=== PATIENT | female | born 1970 ===

== ENCOUNTER 2020-05-13 11:16 | Outpatient (REF) | payer MEDICAID, SELFPAY | END 2020-05-13 11:17 | disposition home or self-care (01) | LOC: HO.LAB 11:16 | PROVIDERS: Visit Provider Internal Medicine | DX: Z20.828 Contact with and (suspected) exposure to other viral communicable diseases (principal) | CPT/HCPCS: C9803; U0003 ==

== ENCOUNTER 2020-06-21 11:17 | Outpatient (REF) | payer MEDICAID, SELFPAY | END 2020-06-21 11:18 | disposition home or self-care (01) | LOC: HO.LAB 11:17 | PROVIDERS: Visit Provider Internal Medicine | DX: Z20.822 Contact with and (suspected) exposure to COVID-19 (principal) | CPT/HCPCS: 36415; C9803; U0003 ==

== ENCOUNTER 2020-06-28 10:16 | Outpatient (REF) | payer MEDICAID, SELFPAY | END 2020-06-28 10:17 | disposition home or self-care (01) | LOC: HO.LAB 10:16 | PROVIDERS: Visit Provider Internal Medicine | DX: Z20.822 Contact with and (suspected) exposure to COVID-19 (principal) | CPT/HCPCS: 36415; C9803; U0003 ==

== ENCOUNTER 2020-09-24 11:27 | Outpatient (REF) | payer MEDICAID, SELFPAY ==
--- NOTE | ~2020-09-24 | XR_ITS ---
EXAMINATION: XR SOFT TISSUE NECK CLINICAL INDICATION: Trauma. COMPARISON: None TECHNIQUE: 2 views of the soft tissue neck were obtained. FINDINGS: Soft tissue films of the neck demonstrate a normal larynx, pharynx and upper trachea. No soft tissue swelling or opaque foreign body is demonstrated. XR/XR soft tissue neck IMPRESSION: Unremarkable cervical soft tissues.
--- NOTE | ~2020-09-24 | XR_ITS ---
EXAMINATION: XR CERVICAL SPINE CLINICAL INFORMATION: Neck pain. COMPARISON: Cervical spine CT dated 06/10/2018. TECHNIQUE: 3 views of the cervical spine were obtained. FINDINGS: The cervical lordosis is maintained. Mild grade 1 anterolisthesis of C4 on C5, unchanged. No acute fracture or subluxation. No loss of vertebral body height. Loss of intervertebral disc height with anterior endplate osteophytes at C4-C5 and C5-C6. Mild multilevel bilateral facet arthropathy. Normal atlantoaxial alignment. Unremarkable prevertebral soft tissues. XR/XR cervical spine 3V IMPRESSION: Mild grade 1 anterolisthesis of C4 on C5, unchanged. Degenerative disc disease at C4-C5 and C5-C6 with mild multilevel bilateral facet arthropathy, unchanged.
== END 2020-09-24 11:28 | disposition home or self-care (01) ==
LOC: HO.XRAY 11:27
PROVIDERS: PCP Registered Nurse; Visit Provider Registered Nurse
DX: M54.2 Cervicalgia (principal); M54.9 Dorsalgia, unspecified; W18.00XA Striking against unspecified object with subsequent fall, initial encounter
CPT/HCPCS: 70360; 72040

== ENCOUNTER 2020-10-01 09:49 | Outpatient (REF) | payer MEDICAID, SELFPAY ==
[2020-10-03 16:42] LABS: HPV mRNA E6/E7 rflx Not Detected (Not Detected)
== END 2020-10-01 09:50 | disposition home or self-care (01) ==
LOC: HO.LAB 09:49
PROVIDERS: Visit Provider Obstetrics & Gynecology
DX: Z01.419 Encounter for gynecological examination (general) (routine) without abnormal findings (principal)
CPT/HCPCS: 87624; 88142

== ENCOUNTER 2021-04-01 10:39 | Outpatient (REF) | payer MEDICAID, SELFPAY | END 2021-04-01 10:40 | disposition home or self-care (01) | LOC: HO.LAB 10:39 | PROVIDERS: Visit Provider Obstetrics & Gynecology | DX: D06.9 Carcinoma in situ of cervix, unspecified (principal) | CPT/HCPCS: 57456; 88305 ==

== ENCOUNTER → 2021-04-15 11:54 | Outpatient (BNVA) | payer MEDICAID, SELFPAY | PROVIDERS: Visit Provider Obstetrics & Gynecology ==

== ENCOUNTER → 2021-04-16 15:18 | Outpatient (BNVA) | payer MEDICAID, SELFPAY | PROVIDERS: Visit Provider Obstetrics & Gynecology ==

== ENCOUNTER 2021-10-16 13:52 | Outpatient (REF) | payer MEDICAID, SELFPAY ==
[2021-10-21 12:06] LABS: HPV mRNA E6/E7 rflx Not Detected (Not Detected)
== END 2021-10-16 13:53 | disposition home or self-care (01) ==
LOC: HO.LAB 13:52
PROVIDERS: Visit Provider Obstetrics & Gynecology
DX: Z01.419 Encounter for gynecological examination (general) (routine) without abnormal findings (principal)
CPT/HCPCS: 87624; 88142

== ENCOUNTER 2021-10-24 12:26 | Outpatient (REF) | payer MEDICAID, SELFPAY ==
--- NOTE | ~2021-10-24 | MM_ITS ---
EXAMINATION: MM SCREENING DIGITAL BREAST TOMOSYNTHESIS, BILATERAL CLINICAL INFORMATION: Screening. Asymptomatic. The lifetime risk of breast cancer based on the Tyrer-Cuzick Model is 6%. COMPARISON: Outside mammography: 11/10/2014 ([facility]) TECHNIQUE: Digital breast tomosynthesis is performed in both the craniocaudal and mediolateral oblique views along with computer-aided detection (CAD). Synthesized 2D images are generated from the tomosynthesis. FINDINGS: There are scattered areas of fibroglandular density (ACR BI-RADS breast composition Category b). Parenchymal pattern is similar to prior outside study. There are no significant masses, abnormal calcifications, or other abnormalities. Breast tissue composition borders on heterogeneously dense. The axilla and skin contours are unremarkable. There are no significant changes from prior outside exam. MM/MM tomosynthesis screening BI IMPRESSION: No mammographic evidence of malignancy. ASSESSMENT: BI-RADS 1: Negative RECOMMENDATION: Routine annual mammography screening. This patient's information was entered into a reminder system with a target due date for their next mammogram.
== END 2021-10-24 12:27 | disposition home or self-care (01) ==
LOC: HO.MAMMO 12:26
PROVIDERS: Visit Provider Obstetrics & Gynecology
DX: Z12.31 Encounter for screening mammogram for malignant neoplasm of breast (principal)
CPT/HCPCS: 77063; 77067

== ENCOUNTER 2021-12-02 14:49 | Emergency (ER) | payer MEDICAID, SELFPAY | END 2021-12-02 16:58 | disposition left against medical advice (07) | PROVIDERS: Emergency Provider Emergency Medicine; PCP Nurse Practitioner Family | DX: R42 Dizziness and giddiness (principal) ==

== ENCOUNTER → 2022-02-17 09:01 | Outpatient (BNVA) | payer MEDICAID, SELFPAY | PROVIDERS: PCP Nurse Practitioner Family; Visit Provider Nurse Practitioner Family | DX: Z01.818 Encounter for other preprocedural examination (principal); Z86.19 Personal history of other infectious and parasitic diseases | CPT/HCPCS: 99202; 99212 ==

== ENCOUNTER 2022-06-12 14:30 | Outpatient (REF) | payer MEDICAID, SELFPAY ==
--- NOTE | ~2022-06-12 | CT_ITS ---
EXAMINATION: CT CHEST SCREENING CLINICAL INFORMATION: Former smoker. COMPARISON: None. TECHNIQUE: Multidetector volumetric CT imaging of the chest is performed without contrast using low dose technique. Additional 2D coronal and sagittal reformatted images and axial 3D maximum intensity projection (MIP) images are generated on the CT workstation. This CT examination was performed using dose optimization techniques as appropriate, variously including the following: *Automated exposure control *Adjustment of mA and/or kV according to patient size (this includes techniques or standardized protocols for targeted exams where dose is matched to indication/reason for exam; i.e. extremities or head) *Use of iterative reconstruction technique DLP: 42 mGy-cm FINDINGS: LUNGS: The lungs are well expanded with small bilateral apical cyst. No pulmonary nodule, mass or consolidation seen. MEDIASTINUM: The thyroid lobes are symmetrical and normal. The central trachea and bronchi are widely patent. The heart size and pulmonary vascularity is normal. There is no pericardial effusion. No abnormal-size mediastinal or hilar lymph nodes seen. CORONARY ARTERY CALCIFICATION: None visualized on this study. PLEURA: There is no pleural effusion. No pleural mass or thickening. AXILLA: Small shotty lymph nodes seen in bilateral axilla. UPPER ABDOMEN: Visualized liver, spleen, pancreas and bilateral adrenal glands appear normal. OSSEOUS STRUCTURES: No aggressive lytic or sclerotic process seen. There is mild ventral spondylosis throughout dorsal spine. CT/CT lung screening IMPRESSION: Unremarkable CT chest exam. ASSESSMENT: Lung-RADS category 1: Negative RECOMMENDATION: Low-dose annual CT chest.
== END 2022-06-12 14:31 | disposition home or self-care (01) ==
LOC: HO.CT 14:30
PROVIDERS: PCP Family Medicine; Visit Provider Physician Assistant Medical
DX: Z12.2 Encounter for screening for malignant neoplasm of respiratory organs (principal); Z87.891 Personal history of nicotine dependence
CPT/HCPCS: 71271; G0296

== ENCOUNTER 2022-08-21 09:33 | Day surgery (SDC) | payer MEDICAID, SELFPAY ==
[2022-07-15 11:58] VITALS: BMI 24.5
[2022-07-15 12:06] VITALS: BMI 24.5
--- NOTE | 2022-08-20 13:12 | P.CONAN_ITS ---
Documented by User: Natalia Daley NP 08/20/22 13:13 HPI - Anesthesia Eval Consult details Narrative: 52yo F for Colonoscopy [facility] Active Problems Active Problems: All Active Problems (Updated 06/12/22 @ 14:32 by Asmita Christina PA-C) CLAY III (cervical intraepithelial neoplasia grade III) with severe dysplasia (Acute) Nicotine dependence, cigarettes, uncomplicated (Acute) Past Medical History Medical History (Updated 06/12/22 @ 14:32 by Asmita Christina PA-C) CLAY III (cervical intraepithelial neoplasia grade III) with severe dysplasia Family history of colon cancer Gastroesophageal reflux Hepatitis C without hepatic coma Hx of migraines Hypothyroidism Nicotine dependence, cigarettes, uncomplicated Paranoid schizophrenia Vertigo Family History Family History (Updated 05/29/22 @ 10:22 by Asmita Christina PA-C) Brother Colon cancer, Onset Age: 61 Father Colon cancer Sister Colon cancer, Onset Age: 54 Surgical History Surgical History (Updated 06/12/22 @ 14:25 by Asmita Christina PA-C) H/O cervical polypectomy H/O elbow surgery Social History Social History (Updated 06/12/22 @ 14:32 by Asmita Christina PA-C) Patient Tobacco Use Status: Former Tobacco user Quit Date: 2021 Tobacco use type: Cigarette Years Smoked: (onset 14yo, 1/2-3/4ppd x 38yrs, 22pyh, quit 2021, now using vape) Smoked in Last 30 Days: No Use of substances other than those prescribed or required for medical reasons: Yes Substance Use Frequency: Daily Are you DNR?: No Advance Directives: No Advance Directives Information Provided: Yes Meds Allergies Allergy/AdvReac Type Severity Reaction Status Date / Time No Known Allergies Allergy Verified 08/21/22 10:24 [No Known Allergies*] Home Medications Medication Instructions Recorded Confirmed Last Taken Type atorvastatin 10 mg tablet 10 mg PO DAILY 10/01/20 08/21/22 Unknown History clonazepam 0.5 mg tablet 0.25 mg PO BEDTIME 10/01/20 08/21/22 08/19/22 History levothyroxine 50 mcg capsule 50 mcg PO DAILY 10/01/20 08/21/22 Unknown History meclizine 25 mg tablet 25 mg PO DAILY 10/01/20 08/21/22 Unknown History nicotine (polacrilex) 4 mg gum 4 mg buccal Q2H 10/01/20 08/21/22 08/19/22 History quetiapine 50 mg tablet 50 mg PO DAILY 10/01/20 08/21/22 Unknown History ferrous sulfate 325 mg (65 mg 1 tab PO QPM 08/21/22 08/21/22 07/24/22 History iron) tablet (FeroSul) Exam Exam Date and Time: August 20, 2022 1312 Height,Weight and Vital Signs: Height 5 ft 6 in Weight 68.946 kg Assessment and Plan Assessment Anesthesia Assessment: Chart Reviewed Documented by User: Rajni Mejias MD 08/21/22 11:44 PMFSH Active Problems Active Problems: All Active Problems (Updated 06/12/22 @ 14:32 by Asmita Christina PA-C) CLAY III (cervical intraepithelial neoplasia grade III) with severe dysplasia (Acute) Nicotine dependence, cigarettes, uncomplicated (Acute) Hypothyroidism Anxiety Hyperlipidemia Smoker Past Medical History Medical History (Updated 06/12/22 @ 14:32 by Asmita Christina PA-C) CLAY III (cervical intraepithelial neoplasia grade III) with severe dysplasia Family history of colon cancer Gastroesophageal reflux Hepatitis C without hepatic coma Hx of migraines Hypothyroidism Nicotine dependence, cigarettes, uncomplicated Paranoid schizophrenia Vertigo Family History Family History (Updated 05/29/22 @ 10:22 by Asmita Christina PA-C) Brother Colon cancer, Onset Age: 61 Father Colon cancer Sister Colon cancer, Onset Age: 54 Surgical History Surgical History (Updated 06/12/22 @ 14:25 by Asmita Christina PA-C) H/O cervical polypectomy H/O elbow surgery Social History Social History (Updated 06/12/22 @ 14:32 by Asmita Christina PA-C) Patient Tobacco Use Status: Former Tobacco user Quit Date: 2021 Tobacco use type: Cigarette Years Smoked: (onset 14yo, 1/2-3/4ppd x 38yrs, 22pyh, quit 2021, now using vape) Smoked in Last 30 Days: No Use of substances other than those prescribed or required for medical reasons: Yes Substance Use Frequency: Daily Are you DNR?: No Advance Directives: No Advance Directives Information Provided: Yes Meds Allergies Allergy/AdvReac Type Severity Reaction Status Date / Time No Known Allergies Allergy Verified 08/21/22 10:24 [No Known Allergies*] Home Medications Medication Instructions Recorded Confirmed Last Taken Type atorvastatin 10 mg tablet 10 mg PO DAILY 10/01/20 08/21/22 Unknown History clonazepam 0.5 mg tablet 0.25 mg PO BEDTIME 10/01/20 08/21/22 08/19/22 History levothyroxine 50 mcg capsule 50 mcg PO DAILY 10/01/20 08/21/22 Unknown History meclizine 25 mg tablet 25 mg PO DAILY 10/01/20 08/21/22 Unknown History nicotine (polacrilex) 4 mg gum 4 mg buccal Q2H 10/01/20 08/21/22 08/19/22 History quetiapine 50 mg tablet 50 mg PO DAILY 10/01/20 08/21/22 Unknown History ferrous sulfate 325 mg (65 mg 1 tab PO QPM 08/21/22 08/21/22 07/24/22 History iron) tablet (FeroSul) Documented by User: Bill Ontiveros MD 08/21/22 12:09 [facility] Past Medical History Medical History (Updated 06/12/22 @ 14:32 by Asmita Christina PA-C) CLAY III (cervical intraepithelial neoplasia grade III) with severe dysplasia Family history of colon cancer Gastroesophageal reflux Hepatitis C without hepatic coma Hx of migraines Hypothyroidism Nicotine dependence, cigarettes, uncomplicated Paranoid schizophrenia Vertigo Family History Family History (Updated 05/29/22 @ 10:22 by Asmita Christina PA-C) Brother Colon cancer, Onset Age: 61 Father Colon cancer Sister Colon cancer, Onset Age: 54 Family history of problems with anesthesia: No Surgical History Surgical History (Updated 01/06/23 @ 14:25 by Asmita Christina PA-C) H/O cervical polypectomy H/O elbow surgery History of Problems with Anesthesia: No Social History Social History (Updated 06/12/22 @ 14:32 by Asmita Christina PA-C) Patient Tobacco Use Status: Former Tobacco user Quit Date: 2021 Tobacco use type: Cigarette Years Smoked: (onset 14yo, 1/2-3/4ppd x 38yrs, 22pyh, quit 2021, now using vape) Smoked in Last 30 Days: No Use of substances other than those prescribed or required for medical reasons: Yes Substance Use Frequency: Daily Are you DNR?: No Advance Directives: No Advance Directives Information Provided: Yes Meds Allergies Allergy/AdvReac Type Severity Reaction Status Date / Time No Known Allergies Allergy Verified 08/21/22 10:24 [No Known Allergies*] Home Medications Medication Instructions Recorded Confirmed Last Taken Type atorvastatin 10 mg tablet 10 mg PO DAILY 10/01/20 08/21/22 Unknown History clonazepam 0.5 mg tablet 0.25 mg PO BEDTIME 10/01/20 08/21/22 08/19/22 History levothyroxine 50 mcg capsule 50 mcg PO DAILY 10/01/20 08/21/22 Unknown History meclizine 25 mg tablet 25 mg PO DAILY 10/01/20 08/21/22 Unknown History nicotine (polacrilex) 4 mg gum 4 mg buccal Q2H 10/01/20 08/21/22 08/19/22 History quetiapine 50 mg tablet 50 mg PO DAILY 10/01/20 08/21/22 Unknown History ferrous sulfate 325 mg (65 mg 1 tab PO QPM 08/21/22 08/21/22 07/24/22 History iron) tablet (FeroSul) Exam Airway Mallampati Class: I TM Dist: >3cm Neck ROM: Full Partial: Lower Heart: ok Lungs: ok Assessment and Plan Assessment Anesthesia Assessment: Anesthesia Plan Discussed Final Anesthetic Review Family History of Problems with Anesthesia: No History of Problems with Anesthesia: No NPO: Yes ASA Class: III Final Preanesthetic Review: No Changes in Pt Med Stat, Meds/Allgs Chart Reviewed, Consent Obtained/Reviewed and Anes Risks/Benef Reviewed Patient Risk: Intermediate Procedure Risk: Low Anesthetic Plan Anesthetic Plan: MAC: and Agree w/ Assess. and Plan Disposition: Standard PACU
[2022-08-21 10:18] VITALS: BMI 24.2
[2022-08-21 10:29] VITALS: BP 124/75; PULSE 55; RESP 16; TEMP 36.2; O2SAT 98
[2022-08-21] MEDS: Sodium Phosphate,Mono-Dibasic 133 ML ENEMA PR ×2 (10:45→11:22)
[2022-08-21] MEDS: Lactated Ringers 1,000 ML 100 ML IVCONT (11:14)
--- NOTE | 2022-08-21 11:50 | MHC.SHP ---
Pre-Procedural Eval Section A Date of Service: 08/21/22 The patient is an INPATIENT: No The History & Physical has been completed within 30 days and I have reviewed it.: No Section B Chief Complaint: colon cancer screening Relevant Family History (Specify if Yes): Yes Relevant Social History: None Present Medications: see Short Stay Collaborative assessment Medical History: Significant History (CLAY III (cervical intraepithelial neoplasia grade III) with severe dysplasia Gastroesophageal reflux Hepatitis A Hepatitis B immune Hepatitis C without hepatic coma Hx of migraines Hypothyroidism Paranoid schizophrenia) History of Previous Operations: Relevant previous surgery/procedure and date(s) (H/O cervical polypectomy H/O elbow surgery) Allergies: Allergies Allergy/AdvReac Type Severity Reaction Status Date / Time No Known Allergies Allergy Verified 08/21/22 10:24 [No Known Allergies*] Review of Systems Sugical H&P ROS: Negative: Constitution, Cardiovascular, Respiratory and Gastrointestinal Exam Surgical H&P Exam: Normal: Heart, Normal: Lungs, Normal: Extremities and Normal: Abdomen Plan Diagnosis/Plan: Unchanged I have reviewed the history and physical and performed a pertinent physical examination on my patient. No changes have occurred unless specified. Time Spent With Patient Time: Total time managing care of this patient today ____ minutes.
--- NOTE | 2022-08-21 11:52 | PM.OP ---
Brief Operative Note Date of Service: 08/21/22 Pre-op diagnosis: colon cancer screening, family history of colon cancer Post-op diagnosis: other ( COLON POLYP, DIVERTICULOSIS, HEMORRHOIDS) Procedure: COLONOSCOPY TO CECUM WITH SNARE POLYPECTOMY Surgeon: Austyn Uribe MD Anesthesia: MAC Was an Plant Operations Manager used for this Procedure?: Yes Plant Operations Manager: Cate Martinez Estimated blood loss (mL): 0 Pathology: other (A: sigmoid polyp at 35) Condition: stable Disposition: PACU
--- NOTE | 2022-08-21 11:52 | W.PM.OPN ---
Operative Note Operative Note Date of Service: 08/21/22 Narrative: COLONOSCOPY TILL CECUM WITH SNARE POLYPECTOMY Indication:? Colon cancer screening, family hx of colon cancer Endoscopist:? Austyn Uribe MD Anesthesia Provider:?Dr Ontiveros Anesthesia type:?MAC Consent: Indications for the procedure and potential complications of bleeding, perforation, reaction to medications and missed diagnosis were discussed with the patient with the help of a [place] bunghole borer and informed consent was obtained. Instrument: Olympus PCF H 190 L variable stiffness pediatric colonoscope Monitoring: Vital signs and clinical assessment, intermittent blood pressure monitoring, continuous EKG monitoring, Pulse oximetry and Carbon Dioxide monitoring were done throughout the procedure. Please see anesthesia flowsheet. Colon withdrawl time was 19 minutes. Procedure: The patient was placed in the left lateral decubitis position and pre-procedure medications were administered. After a digital rectal examination of the ano-rectum, the video colonoscope was inserted into the rectum and advanced through the colon to the cecum. The colonoscope was slowly withdrawn in a retrograde panoramic fashion and the colon mucosa was carefully examined including a retroflexed view of the rectum. Findings and interventions are described below. Procedure Difficulty: Without difficulty Findings: Terminal Ileum: Not evaluated Cecum: Normal Ascending Colon: Normal Transverse Colon: Normal Descending Colon: Moderate diverticulosis Sigmoid Colon: A 12-15 mm sessile polyp at 35 cms - removed wih a hot snare. Moderate diverticulosis Rectum: Normal Ano-rectum: Moderate internal hemorrhoids Colon preparation: Good after some irrigation and poor in the left colon from 40 to 50 cms due to presence of solid stools. Impression and Post Procedure Diagnosis: Colonoscopy Findings: One medium sized polyp removed Moderate diverticulosis seen in the left colon Moderate hemorrhoids on retroflexed exam. Plan: Await pathology results Patient has an appointment on 09/04/22 in the [facility] with Sandra Linda FNP-BC. Repeat Colonoscopy interval based on path results - in 3 years if polyps are adenomatous and due to poor prep in an area in the left colon Above findings were reviewed with the patient and colon polyps and diverticulosis handouts were given in the discharge area
[2022-08-21 12:38] VITALS: BP 145/84; PULSE 56; RESP 16; TEMP 36.9; O2SAT 97
[2022-08-21 12:53] VITALS: BP 134/65; PULSE 83; RESP 20; TEMP 37; O2SAT 100
[2022-08-21 13:08] VITALS: BP 136/73; PULSE 78; RESP 20; TEMP 37; O2SAT 100
== END 2022-08-21 13:23 | disposition home or self-care (01) ==
PROVIDERS: PCP Family Medicine; Visit Provider Internal Medicine Gastroenterology
PROC: 0DJD8ZZ Inspection of Lower Intestinal Tract, Via Natural or Artificial Opening Endoscopic (ICD-10-PCS; CPT 45378; principal; 2022-08-21 11:20)
DX: Z12.11 Encounter for screening for malignant neoplasm of colon (principal); Z80.0 Family history of malignant neoplasm of digestive organs; D12.5 Benign neoplasm of sigmoid colon; K57.30 Diverticulosis of large intestine without perforation or abscess without bleeding; K64.8 Other hemorrhoids; K21.9 Gastro-esophageal reflux disease without esophagitis; B19.20 Unspecified viral hepatitis C without hepatic coma; E03.9 Hypothyroidism, unspecified; F20.0 Paranoid schizophrenia; R42 Dizziness and giddiness; Z79.899 Other long term (current) drug therapy; F17.299 Nicotine dependence, other tobacco product, with unspecified nicotine-induced disorders
CPT/HCPCS: 45385; 88305; J2250

== ENCOUNTER 2023-04-12 12:30 | Outpatient (REF) | payer MEDICAID, SELFPAY ==
--- NOTE | ~2023-04-12 | XR_ITS ---
EXAMINATION: XR LUMBAR SPINE XR KNEES, BILATERAL XR HIP, RIGHT HIP CLINICAL INFORMATION: Bilateral chronic knee pain, acute bilateral low back pain without sciatica. Worsening right hip pain. COMPARISON: None available. TECHNIQUE: 3 views of the lumbar spine. 2 views of the right hip. 3 views of the left knee. 4 views of the right knee. FINDINGS: LUMBAR SPINE: For the purposes of this report, the most superior tqd-vbk-gstqtzh lumbar type vertebral body will be referred to as L1. Progression of mild rightward curvature of the thoracolumbar spine. Facet arthritis in the lower lumbar spine. Lumbar vertebral body heights are preserved. Mild multilevel lumbar spondylosis. Mild loss of disc space height at L4-L5 with minimal grade 1 retrolisthesis of L4 on L5. RIGHT HIP: Mild degenerative changes with superior joint space narrowing right hip. Alignment preserved. RIGHT KNEE: Joint effusion present. Joint spaces are preserved. Tiny medial and posterior patellar osteophytes. LEFT KNEE: Joint effusion present. Joint spaces are preserved. Tiny medial and posterior patellar osteophytes. XR/XR knee LT 3V IMPRESSION: 1. Mild multilevel lumbar spondylosis most notable at L4-L5. 2. Mild degenerative changes in the right hip. 3. Mild degenerative changes in the bilateral knees. CT scan or MRI could be considered for further evaluation if there is clinical concern for fracture or other pathology as these studies are more sensitive for detection.
--- NOTE | ~2023-04-12 | XR_ITS ---
EXAMINATION: XR LUMBAR SPINE XR KNEES, BILATERAL XR HIP, RIGHT HIP CLINICAL INFORMATION: Bilateral chronic knee pain, acute bilateral low back pain without sciatica. Worsening right hip pain. COMPARISON: None available. TECHNIQUE: 3 views of the lumbar spine. 2 views of the right hip. 3 views of the left knee. 4 views of the right knee. FINDINGS: LUMBAR SPINE: For the purposes of this report, the most superior lys-xyj-jodxmvl lumbar type vertebral body will be referred to as L1. Progression of mild rightward curvature of the thoracolumbar spine. Facet arthritis in the lower lumbar spine. Lumbar vertebral body heights are preserved. Mild multilevel lumbar spondylosis. Mild loss of disc space height at L4-L5 with minimal grade 1 retrolisthesis of L4 on L5. RIGHT HIP: Mild degenerative changes with superior joint space narrowing right hip. Alignment preserved. RIGHT KNEE: Joint effusion present. Joint spaces are preserved. Tiny medial and posterior patellar osteophytes. LEFT KNEE: Joint effusion present. Joint spaces are preserved. Tiny medial and posterior patellar osteophytes. XR/XR knee RT 3V IMPRESSION: 1. Mild multilevel lumbar spondylosis most notable at L4-L5. 2. Mild degenerative changes in the right hip. 3. Mild degenerative changes in the bilateral knees. CT scan or MRI could be considered for further evaluation if there is clinical concern for fracture or other pathology as these studies are more sensitive for detection.
--- NOTE | ~2023-04-12 | XR_ITS ---
EXAMINATION: XR LUMBAR SPINE XR KNEES, BILATERAL XR HIP, RIGHT HIP CLINICAL INFORMATION: Bilateral chronic knee pain, acute bilateral low back pain without sciatica. Worsening right hip pain. COMPARISON: None available. TECHNIQUE: 3 views of the lumbar spine. 2 views of the right hip. 3 views of the left knee. 4 views of the right knee. FINDINGS: LUMBAR SPINE: For the purposes of this report, the most superior fia-aqt-wipajwm lumbar type vertebral body will be referred to as L1. Progression of mild rightward curvature of the thoracolumbar spine. Facet arthritis in the lower lumbar spine. Lumbar vertebral body heights are preserved. Mild multilevel lumbar spondylosis. Mild loss of disc space height at L4-L5 with minimal grade 1 retrolisthesis of L4 on L5. RIGHT HIP: Mild degenerative changes with superior joint space narrowing right hip. Alignment preserved. RIGHT KNEE: Joint effusion present. Joint spaces are preserved. Tiny medial and posterior patellar osteophytes. LEFT KNEE: Joint effusion present. Joint spaces are preserved. Tiny medial and posterior patellar osteophytes. XR/XR hip RT min 2V IMPRESSION: 1. Mild multilevel lumbar spondylosis most notable at L4-L5. 2. Mild degenerative changes in the right hip. 3. Mild degenerative changes in the bilateral knees. CT scan or MRI could be considered for further evaluation if there is clinical concern for fracture or other pathology as these studies are more sensitive for detection.
--- NOTE | ~2023-04-12 | XR_ITS ---
EXAMINATION: XR LUMBAR SPINE XR KNEES, BILATERAL XR HIP, RIGHT HIP CLINICAL INFORMATION: Bilateral chronic knee pain, acute bilateral low back pain without sciatica. Worsening right hip pain. COMPARISON: None available. TECHNIQUE: 3 views of the lumbar spine. 2 views of the right hip. 3 views of the left knee. 4 views of the right knee. FINDINGS: LUMBAR SPINE: For the purposes of this report, the most superior xuc-dyw-ldngcpy lumbar type vertebral body will be referred to as L1. Progression of mild rightward curvature of the thoracolumbar spine. Facet arthritis in the lower lumbar spine. Lumbar vertebral body heights are preserved. Mild multilevel lumbar spondylosis. Mild loss of disc space height at L4-L5 with minimal grade 1 retrolisthesis of L4 on L5. RIGHT HIP: Mild degenerative changes with superior joint space narrowing right hip. Alignment preserved. RIGHT KNEE: Joint effusion present. Joint spaces are preserved. Tiny medial and posterior patellar osteophytes. LEFT KNEE: Joint effusion present. Joint spaces are preserved. Tiny medial and posterior patellar osteophytes. XR/XR lumbar spine 2-3V IMPRESSION: 1. Mild multilevel lumbar spondylosis most notable at L4-L5. 2. Mild degenerative changes in the right hip. 3. Mild degenerative changes in the bilateral knees. CT scan or MRI could be considered for further evaluation if there is clinical concern for fracture or other pathology as these studies are more sensitive for detection.
== END 2023-04-12 12:31 | disposition home or self-care (01) ==
LOC: HO.HHCX 12:30
PROVIDERS: Visit Provider Family Medicine
DX: M25.561 Pain in right knee (principal); M25.562 Pain in left knee; G89.29 Other chronic pain; M54.50 Low back pain, unspecified; M25.551 Pain in right hip
CPT/HCPCS: 72100; 73502; 73562

== ENCOUNTER → 2023-05-07 13:45 | Outpatient (BNV) | payer MEDICAID, SELFPAY | PROVIDERS: PCP Family Medicine; Visit Provider Radiology Diagnostic Radiology | DX: Z12.31 Encounter for screening mammogram for malignant neoplasm of breast (principal) | CPT/HCPCS: 77063; 77067 ==

== ENCOUNTER 2023-05-07 14:01 | Outpatient (REF) | payer MEDICAID, SELFPAY ==
--- NOTE | ~2023-05-07 | MM_ITS ---
EXAMINATION: MM SCREENING DIGITAL BREAST TOMOSYNTHESIS, BILATERAL CLINICAL INFORMATION: Screening. Asymptomatic. COMPARISON: Mammography: This study is compared with prior exams dating back to 2015. TECHNIQUE: Digital breast tomosynthesis is performed in both the craniocaudal and mediolateral oblique views along with computer-aided detection (CAD). Synthesized 2D images are generated from the tomosynthesis. FINDINGS: The breasts are heterogeneously dense, which may obscure small masses (ACR BI-RADS breast composition Category c). There are no significant masses, abnormal calcifications, or other abnormalities. MM/MM tomosynthesis screening BI IMPRESSION: No mammographic evidence of malignancy. ASSESSMENT: BI-RADS BI-RADS 1 - Negative RECOMMENDATION: Routine annual mammography screening. 1 year F/U This examination should not preclude the clinical evaluation of a suspicious palpable abnormality. This patient's information was entered into a reminder system with a target due date for their next mammogram.
== END 2023-05-07 14:02 | disposition home or self-care (01) ==
LOC: HO.MAMMO 14:01
PROVIDERS: PCP Family Medicine; Visit Provider Family Medicine
DX: Z12.31 Encounter for screening mammogram for malignant neoplasm of breast (principal)
CPT/HCPCS: 77063; 77067

== ENCOUNTER 2023-12-23 11:05 | Outpatient (REF) | payer MEDICAID, SELFPAY ==
[2023-12-23 13:14] LABS: Hematocrit 42.6 % (37.0-47.0); Hemoglobin 13.7 g/dl (12.0-16.0); Mean Corpuscular HGB Conc 32.2 g/dl (31.0-35.0); Mean Corpuscular Hemoglobin 29.7 pg (27.0-33.0); Mean Corpuscular Volume 92.2 fL (80.0-98.0); Mean Platelet Volume 10.2 fL (9.4-12.3); Platelet Count 311 X10*3/uL (160-400); Red Blood Count 4.62 X10*6/uL (4.20-5.50); Red Cell Distribution Width 14.6 % (11.0-16.0); White Blood Count 9.3 X10*3/uL (4.8-10.8)
[2023-12-23 13:18] LABS: Estimated Average Glucose 114 mg/dL; Hemoglobin A1C 132.8076 umol/L; Hemoglobin A1c % 5.6 % (<6.0)
[2023-12-23 13:44] LABS: Hepatitis A Antibody IgG Nonreactive (Nonreactive); ~Hepatitis A Antibody IgG 0.63 S/CO (0.00-0.99)
[2023-12-23 13:47] LABS: HBS Num1 > 1000.00 mIU/mL (0-7.99); HBc Num1 5.05 S/CO (0.00-0.79); HBsAGNum1 0.34 S/CO (0.00-0.99); HIV AB/AG Nonreactive (Nonreactive); HIV Num 1 0.04 S/CO (0.00-0.99); Hepatitis B Surface Antigen Negative (Negative); ~Hepatitis B Surface Antibody REACTIVE (Nonreactive); ~Hepatitis C Antibody Reactive (Nonreactive)
[2023-12-23 13:50] LABS: Alanine Aminotransferase 14 U/L (0-31); Albumin Level 4.6 g/dL (3.5-5.0); Alkaline Phosphatase 81 U/L (39-117); Anion Gap 14 (12-20); Aspartate Amino Transferase 19 U/L (5-31); Bilirubin Direct 0.2 mg/dL (0.0-0.5); Bilirubin Total 0.5 mg/dL (0.0-1.0); Blood Urea Nitrogen 8 mg/dL (9-16); Calcium 10.6 mg/dL (8.4-10.2); Carbon Dioxide 27 mmol/L (22-29); Chloride 102 mmol/L (96-108); Cholesterol 176 mg/dL (<200); Estimated Glomerular Filt Rate > 60; Glucose Random 88 mg/dL (60-115); HDL Cholesterol 55 mg/dL (>40); LDL Cholesterol Calculated 101 mg/dL (<100); Potassium 4.3 mmol/L (3.3-5.1); Sodium 139 mmol/L (135-145); Total Protein 8.2 g/dL (6.5-8.0); Triglycerides 104 mg/dL (<150)
[2023-12-23 13:52] LABS: Free T4 (Free Thyroxine) 1.15 ng/dL (0.71-1.85); Thyroid Stimulating Hormone 1.08 uIU/mL (0.32-4.0)
[2023-12-23 15:41] LABS: CT PCR NOT DETECTED (Not Detect.); NG PCR NOT DETECTED (Not Detect.)
[2023-12-24 05:19] LABS: HBc Num2 4.84 S/CO; HBc Num3 5.11 S/CO; Hepatitis B Core Antibody Reactive (Nonreactive)
[2023-12-26 22:04] LABS: RPR Rapid Plasma Reagin NON-REACTIVE (NON-REACTIVE)
[2023-12-27 11:24] LABS: HCV Log PCR <1.18 NOT DETECTED Log IU/mL (NOT DETECTED); HepC Viral Load <15 NOT DETECTED IU/mL (NOT DETECTED)
== END 2023-12-23 11:06 | disposition home or self-care (01) ==
LOC: HO.HHCL 11:05
PROVIDERS: Visit Provider Family Medicine
DX: Z00.00 Encounter for general adult medical examination without abnormal findings (principal)
CPT/HCPCS: 36415; 80048; 80061; 80076; 82306; 83036; 84439; 84443; 85027; 86592; 86704; 86706; 86708; 86803; 87340; 87389; 87491; 87522; 87591

== ENCOUNTER 2024-01-12 09:39 | Outpatient (AMB) | payer MEDICAID, SELFPAY ==
--- NOTE | 2024-01-12 09:44 | A.OFFVIS_ITS ---
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 Pt states she has had knee pain for several years. Pt states when she walks she hears cracking in her knees. Pt states her pain is mostly at nighttime. Pt denies any previous injections or surgeries. She has tried Tylenol and ibuprofen which gave her only mild relief. She would like to hold off on surgery if at all possible. Allergies No Known Allergies [No Known Allergies*] Allergy (Verified 01/12/24 09:44) Medication List - Last Reconciled 01/12/24 by Beka Moy MD atorvastatin 10 mg PO DAILY clonazepam 0.25 mg PO BEDTIME ferrous sulfate (FeroSul) 1 tab PO QPM levothyroxine 50 mcg PO DAILY meclizine 25 mg PO DAILY nicotine (polacrilex) 4 mg buccal Q2H quetiapine 50 mg PO DAILY PFSH Medical History (Updated 01/12/24 @ 10:37 by Beka Moy MD) Personal history of nicotine dependence Family history of colon cancer CLAY III (cervical intraepithelial neoplasia grade III) with severe dysplasia Hepatitis C without hepatic coma Hx of migraines Gastroesophageal reflux Paranoid schizophrenia Vertigo Hypothyroidism Surgical History (Updated 09/03/22 @ 11:54 by Santos Galicia) Hx of colonoscopy H/O elbow surgery H/O cervical polypectomy Family History (Updated 05/29/22 @ 10:22 by Asmita Christina PA-C) Brother Colon cancer, Onset Age: 61 Father Colon cancer Sister Colon cancer, Onset Age: 54 Social History (Updated 06/12/22 @ 14:32 by Asmita Christina PA-C) Patient Tobacco Use Status: Former Tobacco user Tobacco use type: Cigarette Years Smoked: (onset 14yo, 1/2-3/4ppd x 38yrs, 22pyh, quit 2021, now using vape) Female Reproductive History Menstrual Age of Menarche: 13 Physical Exam Const Other: Well-nourished well-developed very friendly female awake alert and oriented x3 in no acute distress Extrem Other: Bilateral lower extremity examination shows good capillary refill, no skin lesions noted, normal sensation light touch Bilateral knee examination shows minimal effusions, palpable crepitus with range of motion, pain with range of motion, no instability Office Procedures Joint Injection/Aspiration Joint Injection/Aspiration Primary Site: left knee Prep: site was prepped using aseptic technique Injected: 40 mg of, DepoMedrol and 1% plain lidocaine Procedure: The patient tolerated the procedure well Coding 05428 - Large joint Procedure code (CPT) selection complete Joint Injection/Aspiration Joint Injection/Aspiration Primary Site: right knee Prep: site was prepped using aseptic technique Injected: 40 mg of, DepoMedrol and 1% plain lidocaine Procedure: The patient tolerated the procedure well Coding 81910 - Large joint Procedure code (CPT) selection complete Results Reviewed Results Reviewed: X-rays of the patient's bilateral knees taken today show mild joint space narrowing, no acute bony abnormalities Assessment & Plan Assessment & Plan (1) Left knee pain: Code(s): M25.562 - Pain in left knee Category: Medical (2) Right knee pain: Code(s): M25.561 - Pain in right knee Category: Medical Plan Ms. Moreno Dickinson presents with bilateral knee pains due to early degenerative joint disease. I had a lengthy discussion with the patient regarding the treatment options. The risks and benefits of bilateral knee cortisone injections were discussed at length with the patient. The patient wished to proceed with the injections. She tolerated the injections well. She will continue with her home exercise program. She will follow up with me on an as- needed basis should her symptoms not plateau at an unacceptable level over the next few months. Feel free to call me at any time should questions regarding her orthopedic management arise. Thank you very much for asking me to see this very friendly patient. I spent 22 minutes in reviewing the patient's records and imaging studies, seeing the patient and documenting in the medical record. Orders: Orders AMB Joint Injection/Aspiration Today M25.562 - Pain in left knee AMB Joint Injection/Aspiration Today M25.561 - Pain in right knee Coding Level of Care Code New Pt Level 3 (68574) Diagnoses Left knee pain M25.562 Right knee pain M25.561 CPT Codes Coding - 89492 Large joint: 35421 - Large joint ([id number]) Coding - 45452 Large joint: 87741 - Large joint ([id number])
== END 2024-01-12 10:13 | disposition home or self-care (01) ==
PROVIDERS: PCP Family Medicine; Referring Provider Family Medicine; Visit Provider Orthopaedic Surgery
DX: M25.562 Pain in left knee (principal); M25.561 Pain in right knee
CPT/HCPCS: 20610; 99203

== ENCOUNTER → 2024-01-12 09:39 | Outpatient (BNVA) | payer MEDICAID, SELFPAY | PROVIDERS: PCP Family Medicine; Visit Provider Orthopaedic Surgery | DX: M17.0 Bilateral primary osteoarthritis of knee (principal) | CPT/HCPCS: 20610; 99202; J1010 ==

== ENCOUNTER 2024-01-20 15:06 | Outpatient (REF) | payer MEDICAID, SELFPAY ==
--- NOTE | ~2024-01-20 | CT_ITS ---
EXAMINATION: CT LOW-DOSE SCREENING CHEST WITHOUT CONTRAST CLINICAL INFORMATION: Personal history of nicotine dependence. Former smoker. The patient has a 37 pack-year history of smoking, having quit 2 years ago. COMPARISON: CT chest June 12, 2022. TECHNIQUE: Multidetector volumetric CT imaging of the chest is performed on a Siemens SOMATOM Definition scanner without contrast using low dose technique. Additional 2D coronal and sagittal reformatted images and axial 3D maximum intensity projection (MIP) images are generated on the CT workstation. This CT examination was performed using dose optimization techniques as appropriate, variously including the following: *Automated exposure control. *Adjustment of mA and/or kV according to patient size (this includes techniques or standardized protocols for targeted exams where dose is matched to indication/reason for exam; i.e. extremities or head). *Use of iterative reconstruction technique. TOTAL EXAM DLP: 43 mGy-cm. CTDIvol: 1.34 mGy. FINDINGS: PULMONARY NODULES: No suspicious pulmonary nodules. LUNGS: Lungs bilaterally symmetrically expanded. There are vwtr-vb-lwgbaxia emphysematous changes seen along with a mild saber-sheath trachea. Mild diffuse bronchial thickening without bronchiectasis. No effusion or pneumothorax. Central airways patent. MEDIASTINUM: No mediastinal, hilar or axillary adenopathy or free fluid collection. CORONARY ARTERY CALCIFICATION: None visualized on this study. THYROID GLAND: Unremarkable to the extent seen. CARDIOVASCULAR STRUCTURES: Aortic and heart size normal. No pericardial effusion. CHEST WALL/AXILLA: Unremarkable. UPPER ABDOMEN: Included portions of the solid organs in the upper abdomen unremarkable on noncontrast imaging. OSSEOUS STRUCTURES: No suspicious focal findings. CT/CT lung screening IMPRESSION: No suspicious pulmonary nodules are seen. ASSESSMENT: 1. Lung-RADS Category 1: Negative. There are no nodules or there are definitely benign nodules. N/A. 2. Lung-RADS Category S: Negative. There are no clinically significant or potentially clinically significant findings not related to the lungs requiring urgent additional evaluation. RECOMMENDATION: Continued routine annual low-dose CT lung screening in 1 year is recommended. An order for CT CHEST LOW DOSE CANCER SCREENING ([id number]) can be placed. Electronically signed by: Simeon Sadler MD 02/22/2024 11:09 PM EDT
== END 2024-01-20 15:07 | disposition home or self-care (01) ==
LOC: HO.CT 15:06
PROVIDERS: Visit Provider Physician Assistant Medical
DX: Z12.2 Encounter for screening for malignant neoplasm of respiratory organs (principal); Z87.891 Personal history of nicotine dependence
CPT/HCPCS: 71271

== ENCOUNTER 2024-01-24 13:20 | Outpatient (REF) | payer MEDICAID, SELFPAY ==
[2024-01-26 17:27] LABS: HPV mRNA E6/E7 Not Detected (Not Detected)
== END 2024-01-24 13:21 | disposition home or self-care (01) ==
LOC: HO.LNP 13:20
PROVIDERS: PCP Family Medicine; Visit Provider Obstetrics & Gynecology
DX: Z01.419 Encounter for gynecological examination (general) (routine) without abnormal findings (principal)
CPT/HCPCS: 87624; 88175; 99396

== ENCOUNTER 2024-01-24 13:20 | Outpatient (AMB) | payer MEDICAID, SELFPAY ==
--- NOTE | 2024-01-24 13:26 | A.OFFVIS_ITS ---
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 No complaints. Last Pap/HPV was negative in 10/26 Last Mammogram was BI-RADS 1 in 05/29 Last Colonoscopy was done in 08/27, the recommendation was to repeat in 3 years [facility] Medical History (Updated 01/24/24 @ 14:04 by Cornelius Wall MD) Personal history of nicotine dependence Family history of colon cancer CLAY III (cervical intraepithelial neoplasia grade III) with severe dysplasia Hepatitis C without hepatic coma Hx of migraines Gastroesophageal reflux Paranoid schizophrenia Vertigo Hypothyroidism Surgical History Hx of tubal ligation Hx of colonoscopy H/O elbow surgery H/O cervical polypectomy Family History Brother Colon cancer, Onset Age: 61 Father Colon cancer Sister Colon cancer, Onset Age: 54 Social History Household Members: None Housing: Apartment Alcohol intake: current Alcohol intake frequency: holidays/special occasions only Patient Tobacco Use Status: Former Tobacco user Tobacco use type: Cigarette Years Smoked: (onset 14yo, 1/2-3/4ppd x 38yrs, 22pyh, quit 2021, now using vape) Current occupational status: unemployed Sexually active: No Sexual orientation: Straight/Heterosexual Gender identity: Female Female Reproductive History Menstrual Age of Menarche: 13 control method: permanent sterilization Date of last pap smear: 10/17/21 Date of Mammogram: 05/07/23 Review of Systems Const All systems reviewed & are unremarkable except as noted in HPI and below Card Reports as per HPI Resp Reports as per HPI GI Reports as per HPI and Reports no additional complaints Reports as per HPI Physical Exam Vital Signs: Last Vital Signs BP 122/82 08/19/24 13:45 BMI result Body Mass Index 26.3 Const General: cooperative, healthy appearing and comfortable Chest Chest palpation & inspection: normal inspection of the chest and normal palpation of entire chest wall Breast/axilla inspection: normal inspection of the breasts and normal inspection of the axillae Breast/axilla palpation: normal palpation of the breasts, normal palpation of the axillae and no axillary lymphadenopathy Resp Effort & Inspection: normal respiratory effort Auscultation: clear to auscultation bilaterally Percussion: percussion normal Cardio Palpation: normal PMI Rate: regular rate Rhythm: regular rhythm Heart sounds: no murmurs and no rubs Peripheral pulses: Peripheral pulses 2+ throughout GI Inspection: Yes normal to inspection Palpation (GI): Soft to palpation, nontender, no guarding, not rigid and No hepatosplenomegaly present Percussion: Yes normal to percussion Auscultation: normal bowel sounds Rectal Exam - Female: deferred General: Yes bladder normal to palpation External Female Exam: No lesion Speculum Exam - Vagina: normal appearance of the vagina, normal palpation, normal vaginal discharge and not erythematous Speculum Exam - Cervix: normal appearance of the cervix and normal palpation Bimanual exam- vagina & uterus: normal bimanual exam, normal palpation, uterine size normal, bladder normal to palpation, consistency normal and normal palpation Bimanual Exam- Adnexa, other: normal adnexae, no masses and no tenderness Assessment & Plan Assessment & Plan (1) Well woman exam: Comment: History of CLAY 3 status post LEEP in 2019 followed by 2 co testing negative in 2020 in 2021 Code(s): Z01.419 - Encounter for gynecological examination (general) (routine) without abnormal findings Category: Medical Plan: Co testing done. Counseled the patient about the recommended dietary allowance of 1200 mg of Calcium & 600 IU of vitamin D. Instructions given the patient to schedule her next screening Mammogram in 05/30. The patient was instructed to perform monthly self-breast exams and schedule annual exam in a year. All questions answered and the patient verbalized understanding. Coding Level of Care Code Est Pt Prev Care 40-64y(87853) Diagnoses Well woman exam Z01.419
[2024-01-24 13:45] VITALS: BP 122/82; BMI 26.3
== END 2024-01-24 14:33 | disposition home or self-care (01) ==
LOC: HO.HWS 13:21
PROVIDERS: PCP Family Medicine; Visit Provider Obstetrics & Gynecology
DX: Z01.419 Encounter for gynecological examination (general) (routine) without abnormal findings (principal)
CPT/HCPCS: 99396

== ENCOUNTER 2024-03-27 11:08 | Outpatient (AMB) | payer MEDICAID, SELFPAY ==
--- NOTE | 2024-03-27 11:09 | A.OFFVIS_ITS ---
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 Patient has what appears to be spider veins. Has bilateral leg pain, worse on right leg behind her knee; worse at night. She has no cramping or swelling. 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 She states for the last 5 years or so she has been having right lower extremity pain, worse at night with increased amount of spider veins. She states she does have some on the left lower extremity that have been appearing over the last year or so but not as bad as the right. She denies any swelling. She states she gets some increased pain when walking longer distances. She does smoke 3 cigarettes a day and is attempting to quit. She is not a diabetic. She has no history of a PE or DVT. She has no history of phlebitis. She does elevate her legs when sitting but has not tried compression stockings. [facility] Medical History Personal history of nicotine dependence Family history of colon cancer CLAY III (cervical intraepithelial neoplasia grade III) with severe dysplasia Hepatitis C without hepatic coma Hx of migraines Gastroesophageal reflux Paranoid schizophrenia Vertigo Hypothyroidism Surgical History Hx of tubal ligation Hx of colonoscopy H/O elbow surgery H/O cervical polypectomy Family History Brother Colon cancer, Onset Age: 61 Father Colon cancer Sister Colon cancer, Onset Age: 54 Social History Household Members: None Housing: Apartment Alcohol intake: current Alcohol intake frequency: holidays/special occasions only Patient Tobacco Use Status: Former Tobacco user Tobacco use type: Cigarette Years Smoked: (onset 14yo, 1/2-3/4ppd x 38yrs, 22pyh, quit 2021, now using vape) Current occupational status: unemployed Sexual orientation: Straight/Heterosexual Gender identity: Female Female Reproductive History Menstrual Age of Menarche: 13 Review of Systems Const Reports as per HPI and Denies weakness ENT Reports Normal hearing present and Denies dizziness Card Reports as per HPI, Denies chest pain, Denies chest pain at rest, Denies chest pain with activity, Denies dyspnea and Denies dyspnea on exertion Resp Reports as per HPI, Denies cough, Denies dyspnea and Denies dyspnea on exertion GI Reports as per HPI, Denies abdominal pain, Denies nausea and Denies vomiting Musc Denies numbness Skin/Breast Reports as per HPI, Denies erythema and Denies wounds Neuro Reports Normal hearing present, Denies dizziness, Denies numbness, Denies Sensory deficit (Neuro) and Denies weakness Psych Reports no additional complaints Endo Reports no additional complaints Physical Exam Const General: healthy appearing and no acute distress Orientation/consciousness: patient oriented x3 HEENT Head: Yes normal to inspection Ears: hearing grossly normal bilaterally Mouth: Normal oral and palatal mucosa present Resp Effort & Inspection: normal respiratory effort and able to speak in complete sentences Auscultation: clear to auscultation bilaterally Cardio Jugular venous distension: no JVD Rate: regular rate Rhythm: regular rhythm Heart sounds: S1 normal heart sound present and S2 normal heart sound present Bruits: no abdominal aortic bruits, no carotid bruits, no femoral bruits and no renal bruits Peripheral pulses: Peripheral pulses 2+ throughout GI Inspection: Yes normal to inspection Palpation (GI): No Abdominal aortic bruit present Skin Other: Spider veins noted in the anterior portion of her right lower leg below and around her knee. On her left lower extremity she has a smaller amount of spider veins behind her knee as well as surrounding her anterior knee. There are some starts of tortuous varicose vein on the anterior portion of her right lower extremity below her knee. There is no swelling noted today. Strong and palpable DP/PT pulses bilaterally. CEAP: C - 4 E - primary A - superficial P - reflux General skin exam: no rashes or lesions noted Wounds: no wounds Hair: normal Neuro General: patient oriented x3 Cranial nerves: Yes Normal hearing present Cognition (Neuro): normal cognition Gait exam (Neuro): Normal gait present Motor exam (neuro): 5/5 motor strength present throughout Sensory Exam: No Sensory deficit (Neuro) Extrem General: Yes normal to inspection, Yes full ROM, Yes capillary refill normal and Yes normal gait Assessment & Plan Assessment & Plan (1) Varicose veins of both lower extremities with inflammation: Code(s): I83.11 - Varicose veins of right lower extremity with inflammation; I83.12 - Varicose veins of left lower extremity with inflammation Category: Medical Plan: Janet is presenting today with concerns of varicose veins bilaterally, right leg worse than left. States the right leg has been going on for over 5 years and the left leg started approximately 1 year ago. She states that it is painful, especially with walking. She denies any swelling concerns. In short, the patient has evidence of venous insufficiency. I have discussed the pathophysiology with the patient. In addition I have provided informational material regarding venous disease to the patient. We have discussed conservative measures including compression, elevation, and exercise. I have also provided a handout regarding appropriate use of compression stockings and where to purchase good compression stockings as well. I have taken the liberty of ordering venous insufficiency testing with the patient. They will follow up with me after testing. The patient had an opportunity to ask questions regarding the treatment plan. All questions were answered. We discussed the physical exam findings. No major barriers to understanding were identified. The patient expressed understanding and agreement with the above treatment plan. The patient is aware they should contact our office by phone for worsening of the current condition or the appearance of new symptoms. Thank you for allowing me to participate in the vascular care of this patient. If you have any questions or concerns regarding the treatment for the above condition please do not hesitate to contact me. The office telephone contact is [phone]. This note is constructed using voice recognition software. While every effort has been made to ensure accuracy, rotoprinter errors may have been included. Thank you for allowing me to participate in the care of your patient. Yours sincerely, DAVID Osborn Coding Level of Care Code New Pt New Pt Level 4 (25529) Patient Type New Diagnoses Varicose veins of both lower extremities with inflammation I83.11; I83.12
== END 2024-03-27 11:30 | disposition home or self-care (01) ==
PROVIDERS: PCP Family Medicine; Visit Provider Physician Assistant Surgical
DX: I83.11 Varicose veins of right lower extremity with inflammation (principal); I83.12 Varicose veins of left lower extremity with inflammation
CPT/HCPCS: 99204

== ENCOUNTER → 2024-03-27 11:08 | Outpatient (BNVA) | payer MEDICAID, SELFPAY | PROVIDERS: PCP Family Medicine; Visit Provider Physician Assistant Surgical | DX: I83.11 Varicose veins of right lower extremity with inflammation (principal); I83.12 Varicose veins of left lower extremity with inflammation; I83.813 Varicose veins of bilateral lower extremities with pain | CPT/HCPCS: 99212 ==

== ENCOUNTER 2024-04-05 13:07 | Outpatient (REF) | payer MEDICAID, SELFPAY ==
--- NOTE | ~2024-04-05 | US_ITS ---
EXAMINATION: US LOWER EXTREMITY VENOUS (REFLUX EXAM), BILATERAL CLINICAL INDICATION: Findings the right lower extremity with inflammation COMPARISON: None. TECHNIQUE: Color flow triplex imaging and compression Doppler was performed to evaluate both the deep and the superficial systems bilaterally. To evaluate the superficial system, the examination was performed in the upright position. Color-flow Doppler ultrasound and compression ultrasound were utilized. In addition, maneuvers were utilized to demonstrate reflux. FINDINGS: 1. DEEP VENOUS ULTRASOUND OF THE RIGHT LOWER EXTREMITY: Common Femoral Vein: Compressible, normal respiratory variation and augmented flow. Femoral Vein: Compressible, normal color flow and augmentation. Popliteal Vein: Compressible, normal augmentation. Deep Reflux: There is no evidence of reflux in the deep system in either the common femoral vein, superficial femoral or the popliteal vein. There is no evidence of a Hutchison's cyst. 2. SUPERFICIAL ULTRASOUND WITH DOPPLER OF RIGHT LOWER EXTREMITY: GREAT SAPHENOUS VEIN: Saphenofemoral Junction: 0.4 cm; Reflux: 0 ms Proximal Thigh: 0.4 cm; Reflux: 0 ms Mid Thigh: 0.2 cm; Reflux: 1464 ms Above Knee: 0.2 cm; Reflux: 0 ms At Knee: 0.1 cm; Reflux: 0 ms Below Knee: 0.1 cm; Reflux: 0 ms Mid Calf: 0.1 cm; Reflux: 0 ms Ankle: 0.1 cm; Reflux: 0 ms DUPLICATED LATERAL GREAT SAPHENOUS VEIN: Saphenofemoral Junction: 0.3 cm; Reflux: 0 ms Mid Thigh: 0.2 cm; Reflux: 0 ms SMALL SAPHENOUS VEIN: Saphenopopliteal Junction: 0.1 cm; Reflux: 0 ms Proximal: 0.2 cm; Reflux: 0 ms Distal: 0.1 cm; Reflux: 0 ms PERFORATORS: Location: GSV mid thigh Size: 0.2; Reflux: 0 ms VARICOSITIES: Location: None imaged Size: NA; Reflux: 0 ms 3. DEEP VENOUS ULTRASOUND OF THE LEFT LOWER EXTREMITY: Common Femoral Vein: Compressible, normal respiratory variation and augmented flow. Femoral Vein: Compressible, normal color flow and augmentation. Popliteal Vein: Compressible, normal augmentation. Deep Reflux: There is no evidence of reflux in the deep system in either the common femoral vein, superficial femoral or the popliteal vein. There is no evidence of a Hutchison's cyst. 4. SUPERFICIAL ULTRASOUND WITH DOPPLER OF LEFT LOWER EXTREMITY: GREAT SAPHENOUS VEIN: Saphenofemoral Junction: 0.4 cm; Reflux: 0 ms Proximal Thigh: 0.3 cm; Reflux: 0 ms Mid Thigh: 0.3 cm; Reflux: 0 ms Above Knee: 0.3 cm; Reflux: 0 ms At Knee: 0.2 cm; Reflux: 0 ms Below Knee: 0.1 cm; Reflux: 0 ms Mid Calf: 0.1 cm; Reflux: 0 ms Ankle: 0.1 cm; Reflux: 0 ms DUPLICATED LATERAL GREAT SAPHENOUS VEIN: Saphenofemoral Junction: 0.2 cm; Reflux: 0 ms Mid Thigh: 0.2 cm; Reflux: 0 ms SMALL SAPHENOUS VEIN: Saphenopopliteal Junction: 0.1 cm; Reflux: 0 ms Proximal: 0.1 cm; Reflux: 0 ms Distal: 0.1 cm; Reflux: 0 ms VEIN OF GIACOMINI: Size: NA; Reflux: 0 ms PERFORATORS: Location: None imaged Size: NA; Reflux: 0 ms VARICOSITIES: Location: None Imaged Size: NA; Reflux: 0 ms US/US venous duplex LE BI IMPRESSION: 1. No evidence of deep venous thrombosis or reflux. 2. Focal incompetence of the right great saphenous vein at the level of the mid thigh with reflux measuring 1464 ms. 3. 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 4. No significant venous insufficiency bilaterally in the left lower extremity with competent left great saphenous vein, duplicated lateral great saphenous vein, and small saphenous vein. Electronically signed by: Bhumika Moon MD 04/05/2024 02:59 PM EDT
== END 2024-04-05 13:08 | disposition home or self-care (01) ==
LOC: HO.US 13:07
PROVIDERS: PCP Family Medicine; Visit Provider Physician Assistant Surgical
DX: I83.11 Varicose veins of right lower extremity with inflammation (principal); I83.12 Varicose veins of left lower extremity with inflammation
CPT/HCPCS: 93970

== ENCOUNTER 2024-04-13 10:03 | Outpatient (AMB) | payer MEDICAID, SELFPAY ==
[2024-04-13 10:11] VITALS: BMI 26.3
--- NOTE | 2024-04-13 10:11 | MHC.OFFVIS ---
Vital Signs 04/13/24 10:11 Height 5 ft 6 in Weight 163 lb BMI 26.3 Intake Visit Reasons: OV LENIN chronic knee pain Intake Note: Janet is a 54 year old female who presents with complaints of progressively worsening bilateral knee pains. She describes her pains as sharp and severe in nature. She has taken ibuprofen which gives her minimal relief. She has had cortisone injections in the past which gave her fairly good relief. She wishes to hold off on surgery for as long as possible. Posting Machine Operator Required: Yes Posting Machine Operator Language: Youth Liaison Officer Services: Posting Machine Operator Present Posting Machine Operator Name: KeithKRISTOPHER/SHIMA Allergies No Known Allergies [No Known Allergies*] Allergy (Verified 04/13/24 10:22) Medication List - Last Reconciled 04/13/24 by Beka Moy MD atorvastatin 10 mg PO DAILY clonazepam 0.25 mg PO BEDTIME ferrous sulfate (FeroSul) 1 tab PO QPM levothyroxine 50 mcg PO DAILY meclizine 25 mg PO DAILY nicotine (polacrilex) 4 mg buccal Q2H quetiapine 50 mg PO DAILY PFSH Medical History Personal history of nicotine dependence Family history of colon cancer CLAY III (cervical intraepithelial neoplasia grade III) with severe dysplasia Hepatitis C without hepatic coma Hx of migraines Gastroesophageal reflux Paranoid schizophrenia Vertigo Hypothyroidism Surgical History Hx of tubal ligation Hx of colonoscopy H/O elbow surgery H/O cervical polypectomy Family History Brother Colon cancer, Onset Age: 61 Father Colon cancer Sister Colon cancer, Onset Age: 54 Social History Household Members: None Housing: Apartment Alcohol intake: current Alcohol intake frequency: holidays/special occasions only Patient Tobacco Use Status: Former Tobacco user Tobacco use type: Cigarette Years Smoked: (onset 14yo, 1/2-3/4ppd x 38yrs, 22pyh, quit 2021, now using vape) Current occupational status: unemployed Sexual orientation: Straight/Heterosexual Gender identity: Female Female Reproductive History Menstrual Age of Menarche: 13 Physical Exam Vital Signs: BMI result Body Mass Index 26.3 Const Other: Well-nourished well-developed very friendly female awake alert and oriented x3 in no acute distress Extrem Other: Bilateral lower extremity examination shows good capillary refill, no skin lesions noted, normal sensation light touch Bilateral knee examination shows minimal effusions, palpable crepitus with range of motion, pain with range of motion, no instability Office Procedures AMB Joint Injection/Aspiration Joint Injection/Aspiration Primary Site: left knee Prep: site was prepped using aseptic technique Injected: 40 mg of, DepoMedrol and 1% plain lidocaine Procedure: The patient tolerated the procedure well Coding - Large joint Procedure code (CPT) selection complete AMB Joint Injection/Aspiration Joint Injection/Aspiration Primary Site: right knee Prep: site was prepped using aseptic technique Injected: 40 mg of, DepoMedrol and 1% plain lidocaine Procedure: The patient tolerated the procedure well Coding - Large joint Procedure code (CPT) selection complete Results Reviewed Results Reviewed: X-rays of the patient's bilateral knees taken previously show joint space narrowing, subchondral sclerosis, no acute bony abnormalities Assessment & Plan Assessment & Plan (1) Arthritis of left knee: Code(s): M17.12 - Unilateral primary osteoarthritis, left knee Category: Medical (2) Arthritis of right knee: Code(s): M17.11 - Unilateral primary osteoarthritis, right knee Category: Medical Plan Janet presents with bilateral knee pains due to degenerative joint disease. I had a lengthy discussion with the patient regarding the treatment options. The risks and benefits of bilateral knee cortisone injections were discussed at length with the patient. The patient wished to proceed with the injections. She tolerated the injections well. She will continue with her home exercise program. She will contact me prior to her follow-up appointment in 3 months should any questions or concerns arise. Feel free to call me at any time should questions regarding her orthopedic management arise. I spent 22 minutes in reviewing the patient's records and imaging studies, seeing the patient and documenting in the medical record. Orders: Orders AMB Joint Injection/Aspiration Today M17.12 - Unilateral primary osteoarthritis, left knee AMB Joint Injection/Aspiration Today M17.11 - Unilateral primary osteoarthritis, right knee Coding Level of Care Code Est Pt Level 3 (23199) Complex EM visit Add On G2211 Diagnoses Arthritis of left knee M17.12 Arthritis of right knee M17.11 CPT Codes Coding - Large joint: 42481 - Large joint ([id number]) Coding - Large joint: - Large joint ([id number])
== END 2024-04-13 10:58 | disposition home or self-care (01) ==
LOC: HO.HOS 10:04
PROVIDERS: PCP Family Medicine; Visit Provider Orthopaedic Surgery
DX: M17.0 Bilateral primary osteoarthritis of knee (principal)
CPT/HCPCS: 20610; 99213

== ENCOUNTER → 2024-04-13 10:03 | Outpatient (BNVA) | payer MEDICAID, SELFPAY | PROVIDERS: PCP Family Medicine; Visit Provider Orthopaedic Surgery | DX: M17.0 Bilateral primary osteoarthritis of knee (principal) | CPT/HCPCS: 20610; 99212; J1010; J2003 ==

== ENCOUNTER 2024-05-08 14:08 | Outpatient (REF) | payer MEDICAID, SELFPAY ==
--- NOTE | ~2024-05-08 | MM_ITS ---
EXAMINATION: MM SCREENING DIGITAL BREAST TOMOSYNTHESIS, BILATERAL CLINICAL INFORMATION: Screening. Asymptomatic. COMPARISON: Mammography: Comparison is made with available priors TECHNIQUE: Digital breast mammography with tomosynthesis is performed in both the craniocaudal and mediolateral oblique views along with computer-aided detection (CAD). FINDINGS: The breasts are heterogeneously dense, which may obscure small masses (ACR BI-RADS breast composition Category c). There are no significant masses, abnormal calcifications, or other abnormalities. MM/MM tomosynthesis screening BI IMPRESSION: No mammographic evidence of malignancy. ASSESSMENT: BI-RADS BI-RADS 1 - Negative RECOMMENDATION: Routine annual mammography screening. 1 year F/U This examination should not preclude the clinical evaluation of a suspicious palpable abnormality. This patient's information was entered into a reminder system with a target due date for their next mammogram. Electronically signed by: Chelo Harrison DO 05/15/2024 09:00 AM DONNA
== END 2024-05-08 14:09 | disposition home or self-care (01) ==
LOC: HO.MAMMO 14:08
PROVIDERS: PCP Family Medicine; Visit Provider Family Medicine
DX: Z12.31 Encounter for screening mammogram for malignant neoplasm of breast (principal)
CPT/HCPCS: 77063; 77067

== ENCOUNTER → 2024-05-08 14:15 | Outpatient (BNV) | payer MEDICAID, SELFPAY | PROVIDERS: PCP Family Medicine; Visit Provider Internal Medicine | DX: Z12.31 Encounter for screening mammogram for malignant neoplasm of breast (principal) | CPT/HCPCS: 77063; 77067 ==

== ENCOUNTER 2024-06-13 13:47 | Outpatient (REF) | payer MEDICAID, SELFPAY ==
[2024-06-13 16:23] LABS: Calcium 9.8 mg/dL (8.4-10.2)
[2024-06-13 16:51] LABS: Parathyroid Hormone Intact 66.6 pg/mL (8.7-77.1)
[2024-06-16 15:54] LABS: Calcium, Ionized 5.3 mg/dL (4.7-5.5)
== END 2024-06-13 13:48 | disposition home or self-care (01) ==
LOC: HO.HHCL 13:47
PROVIDERS: Visit Provider Family Medicine
DX: Z00.00 Encounter for general adult medical examination without abnormal findings (principal)
CPT/HCPCS: 36415; 82310; 82330; 83970

== ENCOUNTER 2024-06-22 10:53 | Outpatient (AMB) | payer MEDICAID, SELFPAY ==
--- NOTE | 2024-06-22 11:17 | A.OFFVIS_ITS ---
Intake Visit Reasons: Follow Up [facility] 04/05/24 Intake Note: Patient presents for [facility] follow up. Patient has no complaints. Accompanied by: Self / Same As Patient Allergies No Known Allergies [No Known Allergies*] Allergy (Verified 04/13/24 10:22) HPI HPI Follow Up [facility] 04/05/24: Details: Janet presenting today for a follow up to venous insufficiency ultrasound, performed on 04/05/2024. We utilized [employer] as an business analysis analyst. She continues to endorse right lower extremity pain, not any worse. She does not have any new complaints today. [facility] Medical History Personal history of nicotine dependence Family history of colon cancer CLAY III (cervical intraepithelial neoplasia grade III) with severe dysplasia Hepatitis C without hepatic coma Hx of migraines Gastroesophageal reflux Paranoid schizophrenia Vertigo Hypothyroidism Surgical History Hx of tubal ligation Hx of colonoscopy H/O elbow surgery H/O cervical polypectomy Family History Brother Colon cancer, Onset Age: 61 Father Colon cancer Sister Colon cancer, Onset Age: 54 Social History Household Members: None Housing: Apartment Alcohol intake: current Alcohol intake frequency: holidays/special occasions only Patient Tobacco Use Status: Former Tobacco user Tobacco use type: Cigarette Years Smoked: (onset 14yo, 1/2-3/4ppd x 38yrs, 22pyh, quit 2021, now using vape) Current occupational status: unemployed Sexual orientation: Straight/Heterosexual Gender identity: Female Female Reproductive History Menstrual Age of Menarche: 13 Review of Systems Const Reports as per HPI and Denies weakness ENT Reports Normal hearing present and Denies dizziness Card Reports as per HPI, Denies chest pain, Denies chest pain at rest, Denies chest pain with activity, Denies dyspnea and Denies dyspnea on exertion Resp Reports as per HPI, Denies cough, Denies dyspnea and Denies dyspnea on exertion GI Reports as per HPI, Denies abdominal pain, Denies nausea and Denies vomiting Musc Denies numbness Skin/Breast Reports as per HPI, Denies erythema and Denies wounds Neuro Reports Normal hearing present, Denies dizziness, Denies numbness, Denies Sensory deficit (Neuro) and Denies weakness Psych Reports no additional complaints Endo Reports no additional complaints Physical Exam Const General: healthy appearing and no acute distress Orientation/consciousness: patient oriented x3 HEENT Head: Yes normal to inspection Ears: hearing grossly normal bilaterally Mouth: Normal oral and palatal mucosa present Resp Effort & Inspection: normal respiratory effort and able to speak in complete sentences Auscultation: clear to auscultation bilaterally Cardio Jugular venous distension: no JVD Rate: regular rate Rhythm: regular rhythm Heart sounds: S1 normal heart sound present and S2 normal heart sound present Bruits: no abdominal aortic bruits, no carotid bruits, no femoral bruits and no renal bruits Peripheral pulses: Peripheral pulses 2+ throughout GI Inspection: Yes normal to inspection Palpation (GI): No Abdominal aortic bruit present Skin General skin exam: no rashes or lesions noted Wounds: no wounds Hair: normal Neuro General: patient oriented x3 Cranial nerves: Yes Normal hearing present Cognition (Neuro): normal cognition Gait exam (Neuro): Normal gait present Motor exam (neuro): 5/5 motor strength present throughout Sensory Exam: No Sensory deficit (Neuro) Extrem Other: Spider veins noted in the anterior portion of her right lower leg below and around her knee. On her left lower extremity she has a smaller amount of spider veins behind her knee as well as surrounding her anterior knee. There are some starts of tortuous varicose vein on the anterior portion of her right lower extremity below her knee. There is no swelling noted today. General: Yes normal to inspection, Yes full ROM, Yes capillary refill normal and Yes normal gait Results Reviewed Results Reviewed: Brief summary of venous insufficiency testing is as follows: right great saphenous vein: negative right small saphenous vein: negative right accessory vein: none present left great saphenous vein: negative left small saphenous vein: negative left accessory vein: none present Please note there is no evidence of any venous aneurysms or significant tortuosity Assessment & Plan Assessment & Plan (1) Varicose veins of both lower extremities with inflammation: Code(s): I83.11 - Varicose veins of right lower extremity with inflammation; I83.12 - Varicose veins of left lower extremity with inflammation Category: Medical Plan: Janet is presenting today for a follow up to venous insufficiency ultrasound, performed on 04/05/2024. The ultrasound was negative for any venous insufficiency. She does continue with lower extremity pain. We discussed with her to follow up with her primary care for further evaluation of the pain. We discussed that if the pain worsens or she notices any other new symptoms related to a vascular aspect, to reach back out to our office. We discussed the importance of compression stockings and elevation. We discussed the importance of physical activity and well balanced diet. Thank you for allowing us to participate in the patient's care. If there are any questions or concerns, please do not hesitate to reach out to us. Coding Level of Care Code Est Pt Level 4 (12599) Diagnoses Varicose veins of both lower extremities with inflammation I83.11; I83.12 Comment Review of venous insufficiency ultrasound
== END 2024-06-22 11:54 | disposition home or self-care (01) ==
PROVIDERS: PCP Family Medicine; Visit Provider Physician Assistant Surgical
DX: I83.11 Varicose veins of right lower extremity with inflammation (principal); I83.12 Varicose veins of left lower extremity with inflammation
CPT/HCPCS: 99214

== ENCOUNTER → 2024-06-22 10:53 | Outpatient (BNVA) | payer MEDICAID, SELFPAY | PROVIDERS: PCP Family Medicine; Visit Provider Physician Assistant Surgical | DX: I83.11 Varicose veins of right lower extremity with inflammation (principal); I83.12 Varicose veins of left lower extremity with inflammation | CPT/HCPCS: 99212 ==

== ENCOUNTER 2024-07-18 10:58 | Outpatient (AMB) | payer MEDICAID, SELFPAY ==
[2024-07-18 11:01] VITALS: BMI 26.3
--- NOTE | 2024-07-18 11:01 | A.OFFVIS_ITS ---
Vital Signs 07/18/24 11:01 Height 5 ft 6 in Weight 163 lb BMI 26.3 Intake Visit Reasons: Bilateral knee pains Intake Note: Janet is a 54 year old female who presents with complaints of progressively worsening bilateral knee pains. She describes her pains as sharp in nature. She has had cortisone injections in the past which gave her fairly good relief. She has tried physical therapy exercises which aggravated her pain. She has also taken Tylenol and ibuprofen which gave her only mild relief. She wishes to hold off on surgery if at all possible. Geosciences Professor Required: Yes Geosciences Professor Language: Senior Talent Acquisition Specialist Services: Geosciences Professor Present Geosciences Professor Name: Keith KRISTOPHER/SHIMA Allergies No Known Allergies [No Known Allergies*] Allergy (Verified 07/18/24 11:03) Medication List - Last Reconciled 07/18/24 by Beka Moy MD atorvastatin 10 mg PO DAILY clonazepam 0.25 mg PO BEDTIME ferrous sulfate (FeroSul) 1 tab PO QPM levothyroxine 50 mcg PO DAILY meclizine 25 mg PO DAILY nicotine (polacrilex) 4 mg buccal Q2H quetiapine 50 mg PO DAILY PFSH Medical History Personal history of nicotine dependence Family history of colon cancer CLAY III (cervical intraepithelial neoplasia grade III) with severe dysplasia Hepatitis C without hepatic coma Hx of migraines Gastroesophageal reflux Paranoid schizophrenia Vertigo Hypothyroidism Surgical History Hx of tubal ligation Hx of colonoscopy H/O elbow surgery H/O cervical polypectomy Family History Brother Colon cancer, Onset Age: 61 Father Colon cancer Sister Colon cancer, Onset Age: 54 Social History Household Members: None Housing: Apartment Alcohol intake: current Alcohol intake frequency: holidays/special occasions only Patient Tobacco Use Status: Former Tobacco user Tobacco use type: Cigarette Years Smoked: (onset 14yo, 1/2-3/4ppd x 38yrs, 22pyh, quit 2021, now using vape) Current occupational status: unemployed Sexual orientation: Straight/Heterosexual Gender identity: Female Female Reproductive History Menstrual Age of Menarche: 13 Physical Exam Vital Signs: BMI result Body Mass Index 26.3 Const Other: Well-nourished well-developed very friendly female awake alert and oriented x3 in no acute distress Extrem Other: Bilateral lower extremity examination shows good capillary refill, no skin lesions noted, normal sensation light touch Bilateral knee examination shows minimal effusions, palpable crepitus with range of motion, pain with range of motion, no instability Office Procedures AMB Joint Injection/Aspiration Joint Injection/Aspiration Primary Site: left knee Prep: site was prepped using aseptic technique Injected: 40 mg of, DepoMedrol and 1% plain lidocaine Procedure: The patient tolerated the procedure well Coding - Large joint Procedure code (CPT) selection complete AMB Joint Injection/Aspiration Joint Injection/Aspiration Primary Site: right knee Prep: site was prepped using aseptic technique Injected: 40 mg of, DepoMedrol and 1% plain lidocaine Procedure: The patient tolerated the procedure well Coding - Large joint Procedure code (CPT) selection complete Results Reviewed Results Reviewed: X-rays of the patient's bilateral knees taken previously show joint space narrowing, subchondral sclerosis, no acute bony abnormalities Assessment & Plan Assessment & Plan (1) Arthritis of left knee: Code(s): M17.12 - Unilateral primary osteoarthritis, left knee Category: Medical (2) Arthritis of right knee: Code(s): M17.11 - Unilateral primary osteoarthritis, right knee Category: Medical Plan Ms. Moreno Dickinson presents with bilateral knee pains due to degenerative joint disease. The risks and benefits of bilateral knee cortisone injections were discussed at length with the patient. The patient wished to proceed. She tolerated the injections well. She will continue with her home exercise program. She will contact me prior to her follow-up appointment in 3 months should any questions or concerns arise. Feel free to call me at any time should questions regarding her orthopedic management arise. I spent 20 minutes in reviewing the patient's records and imaging studies, seeing the patient and documenting in the medical record. Orders: Orders AMB Joint Injection/Aspiration Today M17.11 - Unilateral primary osteoarthritis, right knee AMB Joint Injection/Aspiration Today M17.12 - Unilateral primary osteoar thritis, left knee Coding Level of Care Code Est Pt Level 3 (99344) Complex EM visit Add On G2211 Diagnoses Arthritis of left knee M17.12 Arthritis of right knee M17.11 CPT Codes Coding - 00213 Large joint: 14726 - Large joint ([id number]) Coding - 04412 Large joint: 41654 - Large joint ([id number])
--- OUTSIDE RECORDS SUMMARY | 2024-07-18 12:24 | XMS_ITS | Encounter Summary ---
Author Organization [employer] Address [address] [facility] [address] [place] [address] Care Team Providers Care Burglar Alarm Mechanic Name Role Phone Aide Ho DO Primary Care Provider + [phone] Reason for Visit * Reason Comments Med Refill Encounter Details Date Type Department Care Team ([facility] st Contact Info) Description 07/06/2024 Refill [facility] MED & PEDS [address] [place], [place] [phone] Aide Ho DO [address] [place], [place] [phone] Pain Social History Tobacco Use Types Packs/Day Years Used Date Smoking Tobacco: Every Day Cigarettes Smokeless Tobacco: Former Alcohol Use Standard Drinks/Week Comments Never 0 (1 standard drink = 0.6 oz pur e alcohol) Depression Answer Date Recorded Patient Health Questionnaire-9 Score 0 06/20/2024 Patient Health Questionnaire-9 Score 0 06/20/2024 Last PHQ-9: Questionnaire Data Not on file 0 06/20/2024 Housing Stability Answer Date Recorded What is your housing situation today? I have matteo means 11/29/[address] you li ve. Do you have problems with any of the following? None of the above 11/29/2023 Food Insecurity Answer Date Recorded Within the past 12 months, y ou worried that your food would run out before you got money to buy more: Never True 11/29/2023 Within the past 12 months,th e food you bought just didn't last and you didn't have enough money to get more: Never True Transportation Answer Date Recorded In the past 12 months, has l ack of transportation kept you from medical appts, meetings, work or from getting things needed for daily living? No 11/29/2023 Utilities Answer Date Recorded In the past 12 months, has t he electric, gas, oil or water company threatened to shut off services in your home? No 11/29/2023 Depression Answer Date Recorded Patient Health Questionnaire-2 Score 0 06/20/2024 Internet Access Answer Date Recorded Internet Access Q1 No 02/07/2024 Internet Access Q2 I do not want or need it 07/2023 Comments Unknown Sex and Gender Information Value Date Recorded Sex Assigned at Female 04/06/2022 10:28 AM EDT Legal Sex Female 10:28 AM EDT Gender Identity Female 04/06/2022 10:28 AM EDT Sexual Orientation Straight 04/06/2022 10 :28 AM EDT documented as of this encounter Plan of Treatment Upcoming Encounters Date Type Department Care Team (Late st Contact Info) Description 08/11/2024 1:30 PM EST Office Visit [facility] ADULT DENTAL [address] [place] [address] Josue Salazar DDS [address] [place] [address] documented as of this encounter Visit Diagnoses Diagnosis Pain Generalized pain documented in this encounter Additional Health Concerns Assessment Noted Time PHQ-9 Depression Total Score: 0 06/20/19 25 10:14 AM EST documented as of this encounter Care Teams Burglar Alarm Mechanic Relationship Specialty Start Date End Date Aide Ho DO [address] [place] [address] PCP - General Family Medicine 01/31/22 documented as of this encounter
--- OUTSIDE RECORDS SUMMARY | 2024-07-18 12:24 | XMS_ITS | Encounter Summary ---
Author Organization [employer] [facility] Address [address] [place] [address] [address] [place] [address] Care Team Providers Care Post Office Manager Name Role Phone Aide Ho DO Primary Care Provider [phone] Encounter Details Date Type Department Care Team (Latest Contact Info) Description 01/30/2019 Abstract [facility] CONVERSIONS Dental, Provider, DDS Social History Tobacco Use Types Packs/Day Years Used Date Smoking Tobacco: Never Assessed Comments Unknown Sex and Gender Information Value [...] Description 08/11/2024 1:30 PM EST Office Visit [facility] ADULT DENTAL [address] [place] [address] Josue Salazar DDJessica [address] [place] [address] documented as of this encounter Visit Diagnoses Not on filedocumented in this encounter Care Teams Post Office Manager Relationship Specialty Start Date End Date Aide Ho DO [address] [place] [address] PCP - General Family Medicine 01/31/22 documented as of this encounter
--- OUTSIDE RECORDS SUMMARY | 2024-07-18 12:24 | XMS_ITS | Encounter Summary ---
Author Organization [employer] Address [address] [facility] [address] [place] [address] Care Team Providers Care Intravenous Therapy Nurse Name Role Phone Aide Ho DO Primary Care Provider [phone] Encounter Details Date Type Department Care Team (Latest Contact Info) Description 06/20/2024 Travel Social History Tobacco Use Types Packs/Day Years [...] Description 08/11/2024 1:30 PM EST Office Visit [facility] ADULT DENTAL [address] [place] [address] Josue Salazar DDS [address] [place], [place] [phone] documented as of this encounter Visit Diagnoses Not on filedocumented in this encounter Additional Health Concerns Assessment Noted Time PHQ-9 Depression Total Score: 0 06/20/19 25 10:14 AM EST documented as of this encounter Care Teams Intravenous Therapy Nurse Relationship Specialty Start Date End Date Aide Ho DO [address] [place], [place] [phone] PCP - General Family Medicine 01/31/22 documented as of this encounter
--- OUTSIDE RECORDS SUMMARY | 2024-07-18 12:24 | XMS_ITS | Encounter Summary ---
Author Organization [employer] [facility] Address [address] [place] [address] [address] [place] [address] Care Team Providers Care Media Promoter Name Role Phone Aide Ho DO Primary Care Provider [phone] Encounter Details Date Type Department Care Team (Latest Contact Info) Description 02/21/2021 Abstract [facility] CONVERSIONS Dental, Provider, DDS Social History Tobacco [...] Description 08/11/2024 1:30 PM EST Office Visit [facility] ADULT DENTAL [address] [place] [address] Josue Salazar, DDS [address] [place] [address] documented as of this encounter Visit Diagnoses Not on filedocumented in this encounter Care Teams Media Promoter Relationship Specialty Start Date End Date Aide Ho DO [address] [place] [address] PCP - General Family Medicine 01/31/22 documented as of this encounter
--- OUTSIDE RECORDS SUMMARY | 2024-07-18 12:24 | XMS_ITS | Clinical Summary ---
Author Organization [employer] Address [address] [facility] [address] [place] [address] Care Team Providers Care Shade Matcher Name Role Phone Aide Ho Primary Care Provider [phone] Allergies No known active allergies Medications Psyllium (METAMUCIL PO) Take 1 packet by mouth 1 (one) time each day. 022 Active carboxymethylc ellulose 1 % ophthalmic solution Administer 2-4 drops into both eyes if needed for dry eyes. 022 Active sertraline (Zoloft) 100 MG tablet Take 1 tablet by mouth in the morning. Active QUEtiapine (SEROquel) 50 MG tablet Take 1 tablet by mouth at noon and 1 tablet in the evening. Active clonazePAM (KlonoPIN) 0.5 MG tablet Take 1 tablet by mouth 1 (one) time each day. Active ketotifen (Alaway) 0.025 % ophthalmic solution Administer 1 drop into both eyes if needed in the morning and at bedtime (itching). 10 mL 2 023 Active polyethylene glycol, PEG, 3350 (Glycolax) 17 GM/SCOOP powder MIX with WATER AND TAKE DIRECTED BY Gastroenterology (C) 023 Active FeroSul 325 (65 Fe) MG tabletIndicati ons:Anemia, unspecified type TAKE 1 TABLET BY MOUTH EVERY EVENING WITH ORANGE JUICE OR GLASS OF WATER 90 tablet 3 024 Active loratadine (Claritin) 10 MG tablet TAKE 1 TABLET BY MOUTH EVERY MORNING 90 tablet 3 024 Active atorvastatin (Lipitor) 10 MG tablet TAKE 1 TABLET BY MOUTH EVERYDAY AT NOON 90 tablet 3 024 Active Varenicline Tartrate, Starter, 0.5 MG X 11 & 1 MG X 42 tablet therapy pack Take 0.5 mg by mouth Once per day for 3 days, THEN 0.5 mg 2 times daily for 4 days, THEN 1 mg 2 times daily for 21 days. 42 each Active Varenicline Tartrate,Mary nue, 1 MG tablet Take 1 mg by mouth 2 times daily. 60 tablet 1 Active azelastine (Astelin) 0.1 % nasal spray Administer 1 spray into each nostril 2 times daily. Use in each nostril as directed 30 mL 12 024 2024 Active nicotine polacrilex (Commit) 2 MG lozenge DISSOLVE 1 LOZENGE BY MOUTH NEEDED FOR SMOKING CESSATION 72 lozenge 2 Active acetaminophen (Tylenol) 500 MG tablet Take 1 tablet (500 mg) by mouth every 6 (six) hours if needed for mild pain for up to 20 doses. 20 tablet Active fluticasone (Flonase) 50 MCG/ACT nasal spray USE 2 SPRAYS IN EACH NOSTRIL EVERY MORNING DIRECTED 48 g Active levothyroxine (Synthroid, Levoxyl) 100 MCG tablet TAKE 1 TABLET BY MOUTH EVERY MORNING BEFORE BREAKFAST 90 tablet 1 Active D3 Super Strength 50 MCG (2000 UT) capsule TAKE 1 CAPSULE BY MOUTH EVERYDAY AT NOON 90 capsule 1 Active albuterol 108 (90 Base) MCG/ACT inhaler Inhale 2 puffs every 6 (six) hours if needed for wheezing. 18 g 024 2024 Active meclizine (Antivert) 25 MG tabletIndicati ons:Dizziness TAKE 1 TABLET BY MOUTH THREE TIMES DAILY IN THE MORNING, AT NOON, AND AT BEDTIME FOR DIZZINESS 30 tablet 2 Active baclofen (Lioresal) 10 MG tablet TAKE 1 TABLET BY MOUTH THREE TIMES DAILY IN THE MORNING, AT NOON, AND AT BEDTIME NEEDED FOR MUSCLE SPASMS 60 tablet 2 Active gabapentin (Neurontin) 300 MG capsule Take 1 capsule (300 mg) by mouth at bedtime. 30 capsule 3 025 2025 Active Diclofenac Sodium 1 % gel Apply 2 g topically if needed in the morning, at noon, in the evening, and at bedtime (pain). 150 g 3 025 Active ibuprofen 600 MG tabletIndicati ons:Pain TAKE 1 TABLET BY MOUTH THREE TIMES DAILY WITH FOOD NEEDED FOR HEADACHE 60 tablet 2 025 Active Diclofenac Sodium 1 % gel Apply 2 g topically if needed in the morning, at noon, in the evening, and at bedtime (pain). 150 g 3 023 2024 Discontinued(R eorder (will not trigger notification to Pharmacy)) ibuprofen 600 MG tabletIndicati ons:Pain TAKE 1 TABLET BY MOUTH THREE TIMES DAILY WITH FOOD NEEDED FOR HEADACHE 60 tablet 2 024 2024 Discontinued methylPREDNISo lone (Medrol Dospak) 4 MG tablets Follow schedule on package instructions 21 tablet 025 2024 Active Problems Problem Noted Date Diagnosed Date Dental abscess 01/27/2024 BMI 26.0-26.9,adult 12/08/2023 Hearing loss 09/30/2022 Diverticulosis 09/30/2022 Tobacco dependence 08/16/2022 Family history of colon cancer 08/16/2022 Chronic pain of left elbow 08/16/2022 Hyperlipidemia 08/16/2022 Anemia 08/16/2022 Chronic allergic rhinitis 04/22/2022 Cervical intraepithelial lillian plasia grade III with severe dysplasia 10/13/2018 History of hepatitis C 01/22/2017 Chronic migraine 07/31/2015 Hypothyroidism 03/25/2015 Chronic gastroesophageal reflux disease 03/25/20 15 Paranoid schizophrenia 03/25/2015 Resolved Problems Problem Noted Date Diagnosed Date Resolved Date Family history of tobacco ab use and dependence 08/16/2022 08/16/2022 Cigarette smoker 04/22/2022 05/19/2022 Hepatitis A antibody positive 02/04/2018 09/30/2022 Pain in elbow 03/25/2015 05/19/2022 Encounters Date Type Department Care Team Description 07/06/2024 Refill [facility] [address] [place] [address] Aide Ho DO Pain 06/20/2024 10:00 AM EST Office Visit [facility] [address] [place] [address] Aide Ho DO Other hyperlipidemia (Primary Dx); Other specified hypothyroidism; Paranoid schizophrenia (CMS/HCC); Tobacco dependence; Chronic allergic rhinitis; Bilateral chronic knee pain; Chronic bilateral low back pain without sciatica; Varicose veins of both lower extremities with pain; Neck pain; Hot flashes; Healthcare maintenance; Encounter for immunization 06/20/2024 Travel 06/13/2024 Orders Only [facility] [address] [place] [address] Aide Ho DO 06/05/2024 Refill [facility] [address] [place] [address] Aide Ho DO 05/29/2024 Telephone [facility] [address] [place] [phone] Hui Dodson [place] 05/29/2024 Travel 05/08/2024 Orders Only [facility] [address] [place] [address] Aide Ho DO 05/04/2024 Refill [facility] [address] [place] [address] Aide Ho DO Dizziness 04/21/2024 Telephone [facility] ADULT DENTAL [address] [place] [address] Pao Nicole 04/17/2024 Refill [facility] P[facility]S [address] [place] [address] Aide Ho DO Pain from Last 3 Months Immunizations Name Administration Dates Next Due Influenza Injectable Quadriv alant Preservative Free IIV4 MDCK 04/09/2022,03/29/2020 Influenza injectable quadriv alent IIV4 with preservative 07/31/2019,03/16/2018 Influenza injectable quadriv alent preservative free 04/12/2023,02/25/2021 Influenza, IIV3, injectable 04/09/2022 Influenza, seasonal, injecta ble, preservative free 06/20/2024 Moderna Covid-19 Vaccine 12+ 01/19/2022, 04/29/2021,09/17/2020,08/20 Pfizer Covid-19 Vaccine 12+ 06/20/2024, Pfizer Covid-19 Vaccine 12+ Bivalent 05/08/2022 Pneumococcal Conjugate PCV 20 02/05/2022 Pneumococcal Polysaccharide PPSV23 11/26/2017 Tdap 11/26/2017 Zoster, Recombinant 04/09/2022,02/05/2022 Family History Medical History Relation Name Comments Colon cancer Brother Diabetes Brother Hypertension Brother Alcohol abuse Father Liver cancer Father Coronary artery disease Mother Colon cancer Sister Relation Name Status Comments Brother Father Mother Sister Social History Tobacco Use Types Packs/Day Years Used Date Smoking Tobacco: Every Day Cigarettes Smokeless Tobacco: Former Tobacco Cessation:Ready to Q uit: Not Asked; Counseling Given: Not Answered Alcohol Use Standard Drinks/Week Comments Never 0 (1 standard drink = 0.6 oz pur e alcohol) Depression Answer Date Recorded Patient Health Questionnaire-9 Score 0 06/20/2024 Patient Health Questionnaire-9 Score 0 06/20/2024 Last PHQ-9: Questionnaire Data Not on file 0 06/20/2024 Housing Stability Answer Date Recorded What is your housing situation today? I have matteoguy means 11/29/[address] you [...] Orientation Straight 04/06/2022 10 :28 AM EDT Last Filed Vital Signs Vital Sign Reading Time Taken Comments Blood Pressure 134/70 06/20/2024 10:12 AM EST Pulse 84 06/20/2024 10:12 AM EST Temperature 36.1 ??C (97 ??F) 06/20/2024 10:12 AM EST Respiratory Rate 20 06/20/2024 10:12 AM EST Oxygen Saturation 98% 12/27/2023 4:54 PM EDT Inhaled Oxygen Concentration - - Weight 72.8 kg (160 lb 9.6 oz) 06/20/2024 10:12 AM EST Height 167.6 cm (5' 6 ) 06/20/2024 10:12 AM EST Body Mass Index 25.92 06/20/2024 10:12 AM EST Plan of Treatment Upcoming Encounters Date Type Department Care Team (Late st Contact Info) Description 08/11/2024 1:30 PM EST Office Visit [facility] ADULT DENTAL [address] [place] [address] Josue Salazar DDS [address] [place] [address] Health Maintenance Due Date Last Done Comments CT Colonography 1972 FIT DNA/Cologuard 1972 FIT 1972 FOBT 1970 Sigmoidoscopy 1970 Family Planning (PISQ) 01/16/1987 Hepatitis A Vaccines (1 of 2 - Risk 2-dose series) 01/16/1991 Hepatitis B Vaccines (1 of 3 - 19+ 3-dose series) 01/16/1991 Dental Oral Exam 08/18/2024 02/18/2024, , 02/21/2021, Additional history exists Dental Prophylaxis 08/18/2024 02/18/2024, 0 02/21/2021, 08/07/2019, Additional history exists SDOH Screening 11/28/2024 11/29/2023 Dental X-Ray: Bitewings 02/18/2025 02/18/20, 02/21/2021, 12/29/2018 Mammogram 05/08/2025 05/08/2024, 05/07/2023 Alcohol/Substance Use Screening 06/20/2025 06/20/2024 Depression Screening 06/20/2025 06/20/2024, 06/20/19 Tobacco Screening 06/20/2025 06/20/2024 Colonoscopy 08/21/2025 08/21/2022 Colorectal Cancer Screening 08/21/2025 Cervical Cancer Screening 01/23/2027 HPV/Cotest 01/23/2027 01/24/2024, 10/05, 10/16/2021, Additional history exists Pap Smear 01/23/2027 01/24/2024, 10/16/2021 Dental X-Ray: Full Mouth 02/18/2027 02/18/2024, 12/06 DTaP/Tdap/Td Vaccines (2 - Td or Tdap) 11/27/2027 11/26/2017 Lipid Panel 12/22/2028 12/23/2023, 09/06, 09/24/2021, Additional history exists RSV Patients and Patients Aged 60 years or older (1 - 1-dose 75+ series) 01/16/2047 Pneumococcal Vaccine: 50+ Years Completed 02/05/2022, 11/26/2017 Zoster Vaccines Completed 04/09/2022, 02/05/2022 HIV Screening Completed 12/23/2023, 09/06, 08/01/2019 COVID-19 Vaccine Completed 06/20/2024, 11/2022, 05/08/2022, Additional history exists Influenza Vaccine Completed 06/20/2024, , 04/09/2022, Additional history exists HIB Vaccines Aged Out No longer eligi ble based on patient's age to complete this topic HPV Vaccines Aged Out No longer eligi ble based on patient's age to complete this topic IPV Vaccines Aged Out No longer eligi ble based on patient's age to complete this topic Meningococcal Vaccine Aged Out No velvet rosette eligible based on patient's age to complete this topic RSV under 20 months Aged Out No longe r eligible based on patient's age to complete this topic Rotavirus Vaccines Aged Out No longer eligible based on patient's age to complete this topic Procedures Procedure Name Priority Date/Time Associated Diagnosis Comments CALCIUM, IONIZED Routine 06/13/2024 1:49 PM EST PTH, INTACT WITHOUT CALCIUM Routine 06/13/2024 1:49 PM EST CALCIUM Routine 06/13/2024 1:49 PM EST BI MAMMOGRAM SCREENING TOMOSYNTHESIS BILATERAL Routine 05/08/2024 2:15 PM EST PROPHYLAXIS - ADULT Routine 02/18/2024 1 :00 PM EDT Dental calculus Dental plaque DIAGNOSTIC - DIAGNOSTIC IMAGING - INTRAORAL - COMPREHENSIVE SERIES OF RADIOGRAPHIC IMAGES Routine 02/18/2024 1:00 PM EDT COMPREHENSIVE ORAL EVALUATION - NEW OR ESTABLISHED PATIENT Routine 02/18/2024 1:00 PM EDT THINPREP IMAGING PAP AND HPV MRNA E6/E7 WITH REFLEX TO HPV 16,18/45 Routine 01/24/2024 1:20 PM EDT HIV 1/2 ANTIGEN/ANTIBODY, FOURTH GENERATION W/RFL Routine 12/23/2023 11:11 AM EDT Routine history and physical examination of adult LIPID PANEL, STANDARD Routine 12/23/2023 11:11 AM EDT Routine history and physical examination of adult HM COLONOSCOPY Routine 08/21/2022 11:25 AM EDT from Last 3 Months or Most Recently Relevant to Health Maintenance Results * PTH, Intact Without Calcium (06/13/2024 1:49 PM EST) Parathyroid Hormone, Intact 66.6 8.7 - 77.1 pg/mL [facility] 06/13/2024 1:49 PM EST 06/13/2024 4:08 PM EST us Aide Ho DO LAB BLOOD ORDERABLES Final R esult [facility] [address] [place] [address] [phone] * Calcium, Ionized (06/13/2024 1:49 PM EST) Calcium, Ionized 5.3 4.7 - 5.5 mg/dL [facility] Comment:THIS TEST WAS PERFOR MED AT:[facility] [place] [phone] HOPKINS MD 06/13/2024 1:49 PM EST 06/13/2024 4:08 PM EST Aide Ho DO LAB BLOOD ORDERABLES Final R esult Performing Organization Address [facility] Co de Phone Number [facility] [address] [place] [address] [phone] * Calcium (06/13/2024 1:49 PM EST) Calcium 9.8 8.4 - 10.2 mg/dL [facility] 06/13/2024 1:49 PM EST 06/13/2024 4:08 PM EST Aide Ho DO LAB BLOOD ORDERABLES Final R esult Performing Organization Address [facility] de Phone Number [facility] [address] [place] [address] [phone] * BI Mammogram Screening Tomosynthesis Bilateral (05/08/2024 2:15 PM EST) Anatomical Region Laterality Modality Breast Bilateral Mammography 05/08/2024 2:15 PM EST Narrative 05/15/2024 9:03 AM EST ? [facility] ? [address] ?[place] [address] ? Mammography Report ? Signed ? Patient: Moreno Aranaa,Rajni ?MR#: ?? [id number] ? : 1970 ?Acct:[id number] ? Age/Sex: 54 / F ?ADM Date: 12/02/24 ? Loc: HO.MAMMO ? Attending Dr: Aide Ho DO ? Ordering Physician: Aide Ho DO ?Results: 1N ?? egative ? Date of Service: 05/08/24 ?Follow Up: 1 Year From Orig ?? inal Mammogram ? Procedure(s): MM tomosynthesis screening BI ?? Accession Number(s): [id number] ? cc: Aide Ho DO ? EXAMINATION: ?? MM SCREENING DIGITAL BREAST TOMOSYNTHESIS, BILATERAL ? CLINICAL INFORMATION: ? Screening. Asymptomatic. ? COMPARISON: ?? Mammography: Comparison is made with available priors ? TECHNIQUE: ?? Digital breast mammography with tomosynthesis is performed in both the ?? craniocaudal and mediolateral oblique views along with computer-aided ?? detection (CAD). ? FINDINGS: ?? The breasts are heterogeneously dense, which may obscure small masses ?? (ACR BI-RADS breast composition Category c). ? There are no significant masses, abnormal calcifications, or other ?? abnormalities. ? MM/MM tomosynthesis screening BI ?? IMPRESSION: ?? No mammographic evidence of malignancy. ? ASSESSMENT: ? BI-RADS BI-RADS 1 - Negative ? RECOMMENDATION: ?? Routine annual mammography screening. ? 1 year F/U ? This examination should not preclude the clinical evaluation of a ?? suspicious palpable abnormality. ? This patient's information was entered into a reminder system with a ?? target due date for their next mammogram. ? Electronically signed by: ??Chelo Harrison DO ??05/15/2024 09:00 AM EST ?? RP ? Dictated By: ?Chelo Harrison DO ? Signed By: ?<Electronically signed by Chelo Harrison, DO in OV> ? 05/15/24 0900 ? DD/ 1415 ? TD/TT: 05/08/24 1425 ? Hydroelectric Machinery Mechanic: ? Procedure Note Donlaila, Image - 05/15/2024 [facility] [address] [place], [place] [address] Mammography Report Signed Patient: Janet Shetty MMR#: [id number] : 1970Acct:[id number] Age/Sex: 54 / FADM Date: 05/08/24 Loc: HO.MAMMO Attending Dr: Aide Ho DO Ordering Physician: Aide Hoults: 1N egative Date of Service: 05/08/24Follow Up: 1 Year From Orig inal Mammogram Procedure(s): MM tomosynthesis screening BI Accession Number(s): [id number] cc: Aide Ho DO EXAMINATION: MM SCREENING DIGITAL BREAST TOMOSYNTHESIS, BILATERAL CLINICAL INFORMATION: Screening. Asymptomatic. COMPARISON: Mammography: Comparison is made with available priors TECHNIQUE: Digital breast mammography with tomosynthesis is performed in both the craniocaudal and mediolateral oblique views along with computer-aided detection (CAD). FINDINGS: The breasts are heterogeneously dense, which may obscure small masses (ACR BI-RADS breast composition Category c). There are no significant masses, abnormal calcifications, or other abnormalities. MM/MM tomosynthesis screening BI IMPRESSION: No mammographic evidence of malignancy. ASSESSMENT: BI-RADS BI-RADS 1 - Negative RECOMMENDATION: Routine annual mammography screening. 1 year F/U This examination should not preclude the clinical evaluation of a suspicious palpable abnormality. This patient's information was entered into a reminder system with a target due date for their next mammogram. Electronically signed by: Chelo Harrison DO 05/15/2024 09:00 AM EST Dictated By: Chelo Harrison DO Signed By: <Electronically signed by Chelo Harrison DO in OV> 05/15/24 0900 DD/ 1415 TD/TT: 05/08/24 1425 Hydroelectric Machinery Mechanic: Aide Ho DO IMG BI PROCEDURES Final Resu lt * ThinPrep Imaging Pap and HPV mRNA E6/E7 with Reflex to HPV 16,18/45 (01/24/2024 1:20 PM EDT) HPV 16 RNA [facility] HPV 18/45 RNA [facility] HPV nRNA E6/E7 Not Detected Not Detected [facility] Comment:Methodology: Transcr iption-Mediated AmplificationThis assay detects E6/E7 viral messenger RNA (mRNA) from 14high-risk HPV types (16,18,31,33,35,39,45,51,52,56,58,59,66,68).Cervical sources are required for HPV testing.If a vaginal source from a patient who has had atotal hysterectomy with removal of cervix wassubmitted, please contact the testing laboratoryfor alternative testing options.For additional information, please refer [email or web address].[employer]/faq/CSE477l3(This link if provided for information/educational purposes only.)THIS TEST WAS PERFORMED AT:[facility] [place] [phone] HOPKINS MD SOURCE: SEE NOTE [facility] Comment:None given Report Status: [facility] Clinical Information: SEE NOTE [facility] Comment:None given LMP: SEE NOTE [facility] Comment:NONE GIVEN Prev. PAP: SEE NOTE [facility] Comment:NONE GIVEN Prev. BX: SEE NOTE [facility] Comment:NONE GIVEN Statement Of Adequacy: SEE NOTE [facility] Comment:Satisfactory for mario luation.Endocervical/transformation zone component absent. General Categorization: [facility] Interpretation/Result: SEE NOTE [facility] Comment:Cytology Results: Ne gative for intraepitheliallesion or malignancy. Cytology Comment SEE NOTE [facility] Comment:This Pap test has be en evaluated with computerassisted technology. Roof Fitter: SEE NOTE [facility] Comment:RPR, CT (ASCP) CT sc reening location: [address] [address] Review Roof Fitter: [facility] Pathologist [facility] PAP Infection [facility] See Note SEE NOTE [facility] Comment:EXPLANATORY NOTE:The Pap is a screening test for cervical cancer. It isnot a diagnostic test and is subject to false negativeand false positive results. It is most reliable when asatisfactory sample, regularly obtained, is submittedwith relevant clinical findings and history, and whenthe Pap result is evaluated along with historic andcurrent clinical information. 01/24/2024 1:20 PM EDT 01/24/2024 3:18 PM EDT Narrative [facility] - 01/27/2024 4:50 PM EDT SEE SCANNED RESULTS IN EMR us Generic External Data Provider LAB PATHOLOGY ORD ERABLES Final Result [facility] [address] [place] [address] [phone] * HIV-1/2 Antigen and Antibodies, Fourth Generation, with Reflexes (12/23/2023 11:11 AM EDT) HIV AB/AG Nonreactive Nonreactive [facility] Comment:HIV-1 p24 Ag and/or HIV-1/HIV-2 Ab not detected.A test result that is nonreactive does not exclude thepossibility of exposure to or infection with HIV-1 and/orHIV-2. Nonreactive results in this assay for individualswith prior exposure to HIV-1 and/or HIV-2 may be due toantigen and antibody levels that are below the limit ofdetection of this assay.The [employer] HIV Ag/Ab Combo assay result andsupplemental assay results should be interpreted inconjunction with the patient's clinical presentation,history and other laboratory results. If the results areinconsistent with clinical evidence, additional testing issuggested to confirm the result. Blood Venous blood specimen / Unknown 12/23/2023 11:11 AM EDT 12/23/2023 1:03 PM EDT Aide Ho DO LAB BLOOD ORDERABLES Final R esult [facility] [address] [place] [phone] * (ABNORMAL) Lipid Panel, Standard (12/23/2023 11:11 AM EDT) Triglycerides 104 <150 mg/dL [facility] Comment:Desirable Triglyceri de: less than 150 mg/dLBorderline High Triglyceride 150-199 mg/dLHigh Triglyceride: 200-499 mg/dLVery High Triglyceride: greater than or equal to 5OO mg/dL Cholesterol 176 <200 mg/dL [facility] Comment:Desirable Cholestero l: less than 200 mg/dLBorderline High Cholesterol: 200-239 mg/dLHigh Cholesterol: greater than 239 mg/dL LDL Cholesterol Calculated 101(H) <100 mg/dL [facility] Comment:Desirable LDL: less than 100 mg/dLNear Optimal/Above Optimal LDL: 110- 129 mg/dLBorderline High LDL: 130-159 mg/dLHigh LDL: 160-189 mg/dLVery High LDL: greater than or equal to 190 mg/dL HDL Cholesterol 55 >40 mg/dL [facility] Comment:Desirable HDL: great er than 40 mg/dL Note: This HDL assay may give artificially low results in patients with liver disease. Blood Venous blood specimen / Unknown 12/23/2023 11:11 AM EDT 12/23/2023 1:03 PM EDT us Aide Ho DO LAB BLOOD ORDERABLES Final R esult [facility] [address] [place] [address] [phone] * Hm Colonoscopy (08/21/2022 11:25 AM EDT) Historical Provider HEALTH MAINTENANCE Final Result from Last 3 Months or Most Recently Relevant to Health Maintenance Insurance [facility] C3 DENTAL-[facility] MEDICAID STAND ADULT Care Teams Shade Matcher Relationship Specialty Start Date End Date Aide Ho DO [address] [place] [phone] PCP - General Family Medicine 01/31/22
--- OUTSIDE RECORDS SUMMARY | 2024-07-18 12:24 | XMS_ITS | Encounter Summary ---
Author Organization [employer] Address [address] [facility] [address] [place] [address] Care Team Providers Care Residential Property Manager Name Role Phone CleoAide crabtree Primary Care Provider + [phone] Encounter Details Date Type Department Care Team (Late st Contact Info) Description 09/15/2023 Orders Only [facility] MEDICINE [address] [place], [place] [phone] ProviderNadeem MD Social History Tobacco Use Types Packs/Day Years Used Date Smoking Tobacco: Every Day Cigarettes Smokeless Tobacco: Former Alcohol Use Standard Drinks/Week Comments Never 0 (1 standard drink = 0.6 oz pur e alcohol) Depression Answer Date Recorded Patient Health Questionnaire-9 Score 3 05/19/2022 Housing Stability Answer Date Recorded What is your housing situation today? I have matteo means 03/23/[address] you li ve. Do you have problems with any of the following? None of the above 03/23/2023 Food Insecurity Answer Date Recorded Within the past 12 months, y ou worried that your food would run out before you got money to buy more: Never True 03/23/2023 Within the past 12 months,th e food you bought just didn't last and you didn't have enough money to get more: Never True Transportation Answer Date Recorded In the past 12 months, has l ack of transportation kept you from medical appts, meetings, work or from getting things needed for daily living? No 03/23/2023 Utilities Answer Date Recorded In the past 12 months, has t he electric, gas, oil or water company threatened to shut off services in your home? No 03/23/2023 Depression Answer Date Recorded Patient Health Questionnaire-2 Score 1 05/19/2022 Comments Unknown Sex and Gender Information Value [...] Description 08/11/2024 1:30 PM EST Office Visit [facility] ADULT DENTAL [address] [place], [place] [phone] Josue Salazar DDS [address] [place] [address] documented as of this encounter Procedures Procedure Name Priority Date/Time Associated Diagnosis Comments HM COLONOSCOPY Routine 08/21/2022 11:25 AM EDT documented in this encounter Results * Hm Colonoscopy (08/21/2022 11:25 AM EDT) us Historical Provider HEALTH MAINTENANCE Final Result documented in this encounter Visit Diagnoses Not on filedocumented in this encounter Additional Health Concerns Assessment Noted Time PHQ-9 Depression Total Score: 3 05/19/20 22 9:25 AM EST documented as of this encounter Care Teams Residential Property Manager Relationship Specialty Start Date End Date Aide Ho DO [address] [place] [address] PCP - General Family Medicine 01/31/22 documented as of this encounter
--- OUTSIDE RECORDS SUMMARY | 2024-07-18 12:24 | XMS_ITS | Encounter Summary ---
Author Organization [email or web address] Address [address] [facility] [address] [place] [address] Care Team Providers Care Foreman Or Supervisor And Operator Name Role Phone Aide Ho DO Primary Care Provider + [phone] Reason for Visit * Reason Comments Follow-up Encounter Details Date Type Department Care Team (Latest Contact Info) Description 06/20/2024 10:00 AM EST Office Visit [facility] MEDICINE [address] [place], [place] [phone] Aide Ho DO [address] [place], [place] [phone] Other hyperlipidemia (Primary Dx); Other specified hypothyroidism; Paranoid schizophrenia (CMS/HCC); Tobacco dependence; Chronic allergic rhinitis; Bilateral chronic knee pain; Chronic bilateral low back pain without sciatica; Varicose veins of both lower extremities with pain; Neck pain; Hot flashes; Healthcare maintenance; Encounter for immunization Social History Tobacco Use Types Packs/Day Years [...] AM EDT documented as of this encounter Last Filed Vital Signs Vital Sign Reading Time Taken Comments Blood Pressure 134/70 06/20/2024 10:12 AM EST Pulse 84 06/20/2024 10:12 AM EST Temperature 36.1 ??C (97 ??F) 06/20/2024 10:12 AM EST Respiratory Rate 20 06/20/2024 10:12 AM EST Oxygen Saturation - - Inhaled Oxygen Concentration - - Weight 72.8 kg (160 lb 9.6 oz) 06/20/2024 10:12 AM EST Height 167.6 cm (5' 6 ) 06/20/2024 10:12 AM EST Body Mass Index 25.92 06/20/2024 10:12 AM EST documented in this encounter Progress Notes * Aide Ho, DO - 06/20/2024 10:00 AM EST SUBJECTIVE Janet Dickinson is a 54 y.o. female who presents for Follow-up. She c/o L-sided neck pain in the back of her neck. She says she can barely rotate her head. She says she has been taking IBU for sx relief, but it just brings down the inflammation. She says she alsohas been using baclofen with spasmodic relief. She describes her sx as a pinching sensation with num bness/tingling in her fingers and toes. She says she has f/u with vascular later this mos. She says she has stopped smoking about 2 m/a with the help of chantix. She is following with therapist and psychiatrist as scheduled and she is taking her meds as rx'd. She would like to reduce her iron pill frequency d/t constipation sx. She is consistently taking her coat on-and-off d/t hot flashes. She says she did not bring it up toGYN because her sx were not as bad at the time she saw them. Review of Systems Constitutional: Negative for activity change, appetite change, chills, fever and unexpected weight change. Respiratory: Negative for cough and shortness of breath. Cardiovascular: Negative for chest pain, palpitations and leg swelling. Gastrointestinal: Negative for abdominal pain, diarrhea, nausea and vomiting. Musculoskeletal: Positive for myalgias, neck pain and neck stiffness. Neurological: Positive for numbness (+fingers/toes). Negative for weakness and headaches. Patient Active Problem List Diagnosis Hypothyroidism Chronic allergic rhinitis Cervical intraepithelial neoplasia grade III with severe dysplasia Chronic gastroesophageal reflux disease Chronic migraine Paranoid schizophrenia (CMS/HCC) History of hepatitis C Tobacco dependence Family history of colon cancer Chronic pain of left elbow Hyperlipidemia Anemia Hearing loss Diverticulosis BMI 26.0-26.9,adult Dental abscess No Known Allergies OBJECTIVE Visit Vitals BP 134/70 (BP Location: Left arm, Patient Position: Sitting, BP Cuff Size: Adult) Pulse 84 Temp 97 ??F (36.1 ??C) (Oral) Resp 20 Ht 5' 6 (1.676 m) Wt 160 lb 9.6 oz (72.8 kg) BMI 25.92 kg/m?? OB Status Unknown Smoking Status Every Day BSA 1.84 m?? Physical Exam Constitutional: General: She is not in acute distress. Appearance: Normal appearance. Cardiovascular: Rate and Rhythm: Normal rate and regular rhythm. Heart sounds: Normal heart sounds. No murmur heard. Pulmonary: Effort: Pulmonary effort is normal. Breath sounds: Normal breath sounds. No wheezing or rhonchi. Neurological: General: No focal deficit present. Mental Status: She is alert. Psychiatric: Mood and Affect: Mood normal. Assessment/Plan Diagnoses and all orders for this visit: Other hyperlipidemia LDL at goal DEC 2023 -cont lipitor nightly Other specified hypothyroidism TFTs nml DEC 2023 -cont levothyroxine daily Paranoid schizophrenia (CMS/HCC) -she denies any SI/HI -she has the number for crisis -cont med regimen as per psychiatry -f/u with therapist and psychiatrist as scheduled Tobacco dependence >30 pack year hx -congratulated pt on cessation -cont chantix as rx'd -cont nicorette lozenges prn cravings -CT chest LRADS 07 JUN 2022, review repeat next next visit Chronic allergic rhinitis -cont claritin and nasacort daily Bilateral chronic knee pain Sx improved with injection -knee XR with mild degenerative changes APR 2023 -cont tylenol and IBU prn -cont diclofenac gel prn -f/u with ortho as scheduled Chronic bilateral low back pain without sciatica Intermittent sx -L-spine XR with mild multilevel spondylosis APR 2023 -R-hip XR with mild degenerative changes APR 2023 -pain meds as above -cont baclofen as needed -advised contact [facility] if sx worsen Varicose veins of both lower extremities with pain R>L -f/u with vascular nexct mos as scheduled Neck pain Recent-onset with nml exam, likely 2/2 mm spasm -provided reassurance -referred for C-spine XR -tx with medrol dose-pack -cont baclofen prn -cont tylenol/motrin prn -cont diclofenac gel -encouraged ROM exercises -advised contact [facility]HC if sx change or worsen Hot flashes Worsening menopausal hot flases, especially nocturnally -trial gabapentin nightly -advised d/w psychiatrist re: effexor -consider trial HRT if no improvement Healthcare maintenance -s/p flu vaccine APR 2023, repeat today -s/p COVID vaccine APR 2023, repeat today -s/p Tdap NOV 2017 -s/p pneumovax NOV 2017 -s/p PCV20 FEB 2022 -s/p Shingrix APR 2022 -Hep B immune -mammo BIRADS 07 MAY 2024 -[place] [facility] [place] repeat every 3 years x 25 years give h/o CLAY III -colonoscopy with diverticulosis, internal hemorrhoids, and tubular adenoma AUG 2022, repeat in 3 years per GI -A1c nml DEC 2023 -STI/HIV screening neg DEC 2023 --Follow-up with me in 3 mos or sooner prn-- Current Outpatient Medications: acetaminophen (Tylenol) 500 MG tablet, Take 1 tablet (500 mg) by mouth every 6 (six) hours if needed for mild pain for up to 20 doses., Disp: 20 tablet, Rfl: 0 albuterol 108 (90 Base) MCG/ACT inhaler, Inhale 2 puffs every 6 (six) hours if needed for wheezing., Disp: 18 g, Rfl: 0 atorvastatin (Lipitor) 10 MG tablet, TAKE 1 TABLET BY MOUTH EVERYDAY AT NOON, Disp: 90 tablet, Rfl:3 azelastine (Astelin) 0.1 % nasal spray, Administer 1 spray into each nostril 2 times daily. Use in each nostril as directed, Disp: 30 mL, Rfl: 12 baclofen (Lioresal) 10 MG tablet, TAKE 1 TABLET BY MOUTH THREE TIMES DAILY IN THE MORNING, AT NOON,AND AT BEDTIME NEEDED FOR MUSCLE SPASMS, Disp: 60 tablet, Rfl: 2 carboxymethylcellulose 1 % ophthalmic solution, Administer 2-4 drops into both eyes if needed for dry eyes., Disp: , Rfl: clonazePAM (KlonoPIN) 0.5 MG tablet, Take 1 tablet by mouth 1 (one) time each day., Disp: , Rfl: D3 Super Strength 50 MCG (2000 UT) capsule, TAKE 1 CAPSULE BY MOUTH EVERYDAY AT NOON, Disp: 90 capsule, Rfl: 1 Diclofenac Sodium 1 % gel, Apply 2 g topically if needed in the morning, at noon, in the evening, and at bedtime (pain)., Disp: 150 g, Rfl: 3 FeroSul 325 (65 Fe) MG tablet, TAKE 1 TABLET BY MOUTH EVERY EVENING WITH ORANGE JUICE OR GLASS OF WATER, Disp: 90 tablet, Rfl: 3 fluticasone (Flonase) 50 MCG/ACT nasal spray, USE 2 SPRAYS IN EACH NOSTRIL EVERY MORNING DIRECTED, Disp: 48 g, Rfl: 0 gabapentin (Neurontin) 300 MG capsule, Take 1 capsule (300 mg) by mouth at bedtime., Disp: 30 capsule, Rfl: 3 ibuprofen 600 MG tablet, TAKE 1 TABLET BY MOUTH THREE TIMES DAILY WITH FOOD NEEDED FOR HEADACHE,Disp: 60 tablet, Rfl: 2 ketotifen (Alaway) 0.025 % ophthalmic solution, Administer 1 drop into both eyes if needed in the morning and at bedtime (itching)., Disp: 10 mL, Rfl: 2 levothyroxine (Synthroid, Levoxyl) 100 MCG tablet, TAKE 1 TABLET BY MOUTH EVERY MORNING BEFORE BREAKFAST, Disp: 90 tablet, Rfl: 1 loratadine (Claritin) 10 MG tablet, TAKE 1 TABLET BY MOUTH EVERY MORNING, Disp: 90 tablet, Rfl: 3 meclizine (Antivert) 25 MG tablet, TAKE 1 TABLET BY MOUTH THREE TIMES DAILY IN THE MORNING, AT NOON, AND AT BEDTIME FOR DIZZINESS, Disp: 30 tablet, Rfl: 2 methylPREDNISolone (Medrol Dospak) 4 MG tablets, Follow schedule on package instructions, Disp: 21 tablet, Rfl: 0 nicotine polacrilex (Commit) 2 MG lozenge, DISSOLVE 1 LOZENGE BY MOUTH NEEDED FOR SMOKING CESSATION, Disp: 72 lozenge, Rfl: 2 polyethylene glycol, PEG, 3350 (Glycolax) 17 GM/SCOOP powder, MIX with WATER AND TAKE DIRECTED BY Gastro[place]ology [place] [place] Disp: , Rfl: Psyllium (METAMUCIL PO), Take 1 packet by mouth 1 (one) time each day., Disp: , Rfl: QUEtiapine (SEROquel) 50 MG tablet, Take 1 tablet by mouth at noon and 1 tablet in the evening., Disp: , Rfl: sertraline (Zoloft) 100 MG tablet, Take 1 tablet by mouth in the morning., Disp: , Rfl: Varenicline Tartrate, Starter, 0.5 MG X 11 & 1 MG X 42 tablet therapy pack, Take 0.5 mg by mouth Once per day for 3 days, THEN 0.5 mg 2 times daily for 4 days, THEN 1 mg 2 times daily for 21 days., Disp: 42 each, Rfl: 0 Varenicline Tartrate,Continue, 1 MG tablet, Take 1 mg by mouth 2 times daily., Disp: 60 tablet, Rfl: 1 Scribe Attestation: Michael Wells, am serving as a scribe to document services personally performed by Aide Levine, based on the patient's response to questions by provider and provider's statements to me. 06/20/24 2:40 PM Physicians Attestation: I, Aide Ho DO, have reviewed the information by the scribe, Michael Ureña, for accuracy and agree with its content. documented in this encounter Plan of Treatment Upcoming Encounters Date Type Department Care Team (Late st Contact Info) Description 08/11/2024 1:30 PM EST Office Visit [facility] ADULT DENTAL [address] [place], [place] [phone] Josue Salazar, ASHLEES [address] [place] [address] Scheduled Orders Name Type Priority Associated Diagnoses Orde r Schedule XR Cervical Spine 2-3 Views Imaging Routine Neck pain Expected: 06/20/2024, Expires: 06/20/2025 documented as of this encounter Visit Diagnoses Diagnosis Other hyperlipidemia- Primary Other specified hypothyroidism Paranoid schizophrenia (CMS/HCC) Paranoid schizophrenia, unspecified condition Tobacco dependence Tobacco use disorder Chronic allergic rhinitis Bilateral chronic knee pain Chronic bilateral low back pain without sciatica Varicose veins of both lower extremities with pain Neck pain Cervicalgia Hot flashes Healthcare maintenance Encounter for immunization documented in this encounter Additional Health Concerns Assessment Noted Time PHQ-9 Depression Total Score: 0 06/20/19 25 10:14 AM EST documented as of this encounter Care Teams Foreman Or Supervisor And Operator Relationship Specialty Start Date End Date Aide Ho DO [address] [place] [address] PCP - General Family Medicine 01/31/22 documented as of this encounter
--- OUTSIDE RECORDS SUMMARY | 2024-07-18 12:24 | XMS_ITS | Encounter Summary ---
Author Organization [employer] Address [address] [place] [address] [address] [place] [address] Care Team Providers Care Ui Ux Web Developer Name Role Phone Aide Ho DO Primary Care Provider [phone] Reason for Visit * Reason Onset Date Comments Nurse Triage 02/10/2023 Encounter Details Date Type Department Care Team ([facility] st Contact Info) Description 02/10/2023 Telephone [facility] MEDICINE [address] [place], [place] [phone] Aide Ho DO [address] [place], [place] [phone] Nurse Triage Social History Tobacco Use Types Packs/Day Years Used Date Smoking Tobacco: Former Cigarettes Smokeless Tobacco: Former Alcohol Use Standard Drinks/Week Comments Never 0 (1 standard drink = 0.6 oz pur e alcohol) Depression Answer Date Recorded Patient Health Questionnaire-9 Score 3 05/19/2022 Depression Answer Date Recorded Patient Health Questionnaire-2 Score 1 05/19/2022 Comments Unknown Sex and Gender Information Value Date Recorded Sex Assigned at Female 04/06/2022 10:28 AM EDT Legal Sex Female 10:28 AM EDT Gender Identity Female 04/06/2022 10:28 AM EDT Sexual Orientation Straight 04/06/2022 10 :28 AM EDT documented as of this encounter Miscellaneous Notes * Telephone Encounter - Saba Newby RN - 02/10/2023 1:18 PM EDT Triage call with [place] [employer] [place] [id number] and [phone]. Pt didn't answer left message to call [facility] triage line at [phone]. Attempted more than twice. * Telephone Encounter - Cynthia Lu - 02/10/2023 11:50 AM EDT Symptom: Bruises - Not From Injury Outcome: Schedule an urgent appointment (within 1 hour) or talk to a nurse or provider soon Reason: Swollen feet and hands The caller accepted this outcome Please contact pt at [phone] documented in this encounter Plan of Treatment Upcoming Encounters Date Type Department Care Team (Late st Contact Info) Description 08/11/2024 1:30 PM EST Office Visit [facility] ADULT DENTAL [address] [place] [address] Josue Salazar DDS [address] [place] [address] documented as of this encounter Visit Diagnoses Not on filedocumented in this encounter Additional Health Concerns Assessment Noted Time PHQ-9 Depression Total Score: 3 05/19/20 22 9:25 AM EST documented as of this encounter Care Teams Ui Ux Web Developer Relationship Specialty Start Date End Date Aide Ho DO [address] [place] [address] PCP - General Family Medicine 01/31/22 documented as of this encounter
== END 2024-07-18 11:25 | disposition home or self-care (01) ==
PROVIDERS: PCP Family Medicine; Visit Provider Orthopaedic Surgery
DX: M17.0 Bilateral primary osteoarthritis of knee (principal)
CPT/HCPCS: 20610; 99213

== ENCOUNTER → 2024-07-18 10:58 | Outpatient (BNVA) | payer MEDICAID, SELFPAY | PROVIDERS: PCP Family Medicine; Visit Provider Orthopaedic Surgery | DX: M17.0 Bilateral primary osteoarthritis of knee (principal) | CPT/HCPCS: 20610; 99212; J1010; J2003 ==

== ENCOUNTER 2024-08-06 02:50 | Emergency (ER) | payer MEDICAID, SELFPAY ==
[2024-08-06 03:52] VITALS: BP 00/00; BP 173/71; PULSE 100; PULSE 90; RESP 20; TEMP 37; O2SAT 100; O2SAT 96; BMI 28.3
--- NOTE | 2024-08-06 04:17 | ED.PSYCH ---
HPI - Psych General Chief Complaint: Psychiatric Symptoms Stated Complaint: PSYCH Time Seen by Provider: 08/06/24 03:43 Source: patient Mode of arrival: EMS Limitations: no limitations History of Present Illness ED Provider: HPI Narrative: Patient's history of depression comes here as he she feels that has cameras in her house does not organized thought process and paranoia feels that her boyfriend left 5th under girlfriend uses cocaine on regular amount no history of schizophrenia denies any significant depression or/suicidal ideation Related Data Home Medications ?Medication ?Instructions ?Recorded ?Confirmed atorvastatin 10 mg tablet 10 mg PO DAILY 10/01/20 07/18/24 clonazepam 0.5 mg tablet 0.25 mg PO BEDTIME 10/01/20 07/18/24 levothyroxine 50 mcg capsule 50 mcg PO DAILY 10/01/20 07/18/24 meclizine 25 mg tablet 25 mg PO DAILY 10/01/20 07/18/24 nicotine (polacrilex) 4 mg gum 4 mg buccal Q2H 10/01/20 07/18/24 quetiapine 50 mg tablet 50 mg PO DAILY 10/01/20 07/18/24 ferrous sulfate 325 mg (65 mg 1 tab PO QPM 08/21/22 07/18/24 iron) tablet (FeroSul) Allergies Allergy/AdvReac Type Severity Reaction Status Date / Time No Known Allergies Allergy Verified 08/06/24 03:57 [No Known Allergies*] Review of Systems Review of Systems: Yes all other systems are reviewed and are negative PMFSH Past Medical History Medical History Personal history of nicotine dependence Family history of colon cancer CLAY III (cervical intraepithelial neoplasia grade III) with severe dysplasia Hepatitis C without hepatic coma Hx of migraines Gastroesophageal reflux Paranoid schizophrenia Vertigo Hypothyroidism Surgical History Hx of tubal ligation Hx of colonoscopy H/O elbow surgery H/O cervical polypectomy Family History Family History Brother Colon cancer, Onset Age: 61 Father Colon cancer Sister Colon cancer, Onset Age: 54 Social History Social History Household Members: None Housing: Apartment Alcohol intake: current Alcohol intake frequency: holidays/special occasions only Patient Tobacco Use Status: Former Tobacco user Tobacco use type: Cigarette Years Smoked: (onset 14yo, 1/2-3/4ppd x 38yrs, 22pyh, quit 2021, now using vape) Do you have a plan to hurt others: No Plan Current occupational status: unemployed Sexual orientation: Straight/Heterosexual Gender identity: Female Physical Exam Vital Signs: Vital Signs: Last Vital Signs Temp 98.6 F 08/06/24 03:52 Pulse 90 08/06/24 03:52 Resp 20 08/06/24 03:52 BP 173/71 H 08/06/24 03:52 Pulse Ox 96 08/06/24 03:52 O2 Del Method Room Air 08/06/24 03:52 BMI result Body Mass Index 28.3 Appearance: Alert. Oriented X3. No acute distress. Eyes: PERRLA, No Nystagmus ENT: Pharynx normal. Oral Mucosa moist Neck: Normal inspection. Neck supple. CVS: Normal heart rate and rhythm. Pulses normal. Respiratory: No respiratory distress. Equal air entry bilateral, no wheezing/rales/rhonchi Abdomen: Soft and nontender. Bowel sounds are present, no mass palpable, no CVA tenderness Skin: Skin warm and dry. Normal skin color. Normal skin turgor. Extremities: No lower extremity edema. No calf tenderness psych: Calm and cooperative denies significant depression denies any suicidal ideation denies any hallucination or delusion at this time Neuro: Oriented X 3. No motor deficit. No sensory deficit.No cerebellar signs , cranial nerves II-XII intact Medications Administered Discontinued Medications Generic Name Dose Route Start Last Admin Trade Name Freq PRN Reason Stop Dose Admin Clonazepam 0.5 mg 08/06/24 03:51 08/06/24 04:19 Clonazepam 0.5 Mg Tablet PO 08/06/24 03:52 0.5 mg ONCE ONE Administration Medical Decision Making Medical Decision Making [facility] Narrative: Patient with paranoia with history of depression will consult care team for further evaluation Discharge Plan Discharge Clinical Impression: Acute paranoid reaction Patient Disposition: Still a Patient Prescriptions: No Action ferrous sulfate [FeroSul] 325 mg (65 mg iron) tablet 1 tab PO QPM clonazepam 0.5 mg tablet 0.25 mg PO BEDTIME Rx Instructions: administer 30 minutes before bedtime quetiapine 50 mg tablet 50 mg PO DAILY nicotine (polacrilex) 4 mg gum 4 mg buccal Q2H levothyroxine 50 mcg capsule 50 mcg PO DAILY meclizine 25 mg tablet 25 mg PO DAILY atorvastatin 10 mg tablet 10 mg PO DAILY Interventions: [place]-Suicide Risk Severity Scale Last Done: 08/06/24 04:45 Print Language: Nigerien
[2024-08-06] MEDS: clonazePAM 0.5 MG TABLET PO (04:19)
--- NOTE | 2024-08-06 04:28 | MHC.EDTECH ---
pt medicated, lab draw delayed until pt wakes up. rn aware.
--- NOTE | 2024-08-06 07:21 | PC.NURSE ---
Assumed care of patient at 0645, patient appears to be in no apparent distress this am, sleeping, respirations even and unlabored. Continue plan of care for CARE team hany
[2024-08-06 08:56] LABS: Appearance Urine Clear; Color Urine Dark Yellow; Glucose Urine UA Negative (Negative); Leukocyte Esterase Urine Negative (Negative); Nitrite Urine Negative (Negative); PH 5.5 (5.0-9.0); Specific Gravity - Urine >= 1.030 (1.005-1.025); UMIC TRIGGER UA YES; Urine Blood Small (1+) (Negative); Urine Ketones 15 mg/dL (Negative); Urine Protein 30 (1+) mg/dL (Neg-Trace)
[2024-08-06 08:59] LABS: Bacteria Urine None Seen (None Seen); WBC Urine 0-5 /HPF (0-5)
[2024-08-06 09:36] LABS: Amphetamine Screen Urine Not Detected (Not Detect); Barbiturates, Urine Not Detected (Not Detect); Benzodiazepines Screen Urine Not Detected (Not Detect); Buprenorphine Scr Positive (Not Detect); Cannabinoid Screen Urine POSITIVE (Not Detect); Cocaine Screen Urine POSITIVE (Not Detect); Fentanyl, urine Not Detected (Not Detect); Methadone Screen, Urine Not Detected (Not Detect); Opiate Screen Urine Not Detected (Not Detect); Oxycodone Screen Urine Not Detected (Not Detect); Phencyclidine Screen Urine Not Detected (Not Detect)
[2024-08-06 09:58] LABS: MANUAL DIFF FLAG NO
[2024-08-06 10:00] LABS: Basophils Percent Auto 0.2 % (0-2); Eosinophils Absolute Auto 0.3 X10*3/uL (0.0-0.4); Eosinophils Percent Auto 1.9 % (0-4); Hematocrit 45.5 % (37.0-47.0); Hemoglobin 15.4 g/dl (12.0-16.0); Imm Gran Abs Auto 0.06 X10*3/uL (0.00-0.03); Imm Gran Pct Auto 0.4 % (0.0-0.4); Lymphocytes Absolute Auto 0.7 X10*3/uL (1.2-4.9); Lymphocytes Percent Auto 4.4 % (20-40); Mean Corpuscular HGB Conc 33.8 g/dl (31.0-35.0); Mean Corpuscular Hemoglobin 30.8 pg (27.0-33.0); Mean Platelet Volume 9.6 fL (9.4-12.3); Monocytes Absolute Auto 1.4 X10*3/uL (0.1-1.2); Monocytes Percent Auto 8.3 % (2-11); Neutrophils Absolute Auto 14.2 x10*3/uL (2.0-8.3); Neutrophils Percent Auto 84.8 % (45-73); Platelet Count 341 X10*3/uL (160-400); Red Cell Distribution Width 15.2 % (11.0-16.0); White Blood Count 16.7 X10*3/uL (4.8-10.8)
[2024-08-06 13:09] LABS: Acetaminophen LAB < 3 mcg/mL (<30); Alanine Aminotransferase 20 U/L (0-31); Albumin Level 4.6 g/dL (3.5-5.0); Alkaline Phosphatase 91 U/L (39-117); Anion Gap 19 (12-20); Aspartate Amino Transferase 36 U/L (5-31); Bilirubin Total 0.9 mg/dL (0.0-1.0); Blood Urea Nitrogen 18 mg/dL (9-16); Calcium 9.6 mg/dL (8.4-10.2); Carbon Dioxide 19 mmol/L (22-29); Chloride 106 mmol/L (96-108); Creatinine Clr Calc Pharmacy 80.4; Estimated Glomerular Filt Rate > 60; Ethanol < 10 mg/dL; Glucose Random 114 mg/dL (60-115); Potassium 3.6 mmol/L (3.3-5.1); Salicylate < 5.0 mg/dL (15-30); Sodium 140 mmol/L (135-145); Total Protein 8.4 g/dL (6.5-8.0)
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
[2024-08-06 22:30] VITALS: BP 141/71; PULSE 74; RESP 18; TEMP 37; O2SAT 96
--- NOTE | 2024-08-06 22:48 | PC.NURSE ---
Assumed care of this patient at this time. Currently patient is in the shower. No distress noted. will continue to monitor through the night
--- NOTE | 2024-08-06 23:08 | PC.NURSE ---
Post shower, patient is anxious and does not want to return to room at this time. Messaged MD for PRN for anxiety medication.
[2024-08-06] MEDS: LORazepam 0.5 MG TABLET PO (23:23)
[2024-08-06] MEDS: clonazePAM 0.5 MG TABLET 0.25 MG PO (23:26)
--- NOTE | 2024-08-06 23:28 | PC.NURSE ---
patient given lorazepam and clonazepam at this time for anxiety. patient is very upset that she did not receive any of her daytime medications. I assured her that she will receive them tomorrow morning. Again, unhappy with this answer, explained the process. Patient calmer. Sitting in chair in main area.
[2024-08-07] MEDS: Levothyroxine Sodium 50 MCG TABLET PO (06:36)
--- NOTE | 2024-08-07 06:41 | PC.NURSE ---
Patient awake; calm and cooperative. Enjoying time in the common space at this time.
--- NOTE | 2024-08-07 08:28 | MHC.CARE ---
Pt does not meet IPLOC and will be discharged to follow up with current providers. Provider in agreement.
[2024-08-07] MEDS: Atorvastatin Calcium 10 MG TABLET PO (08:33)
[2024-08-07] MEDS: QUEtiapine Fumarate 50 MG TABLET PO (08:33)
[2024-08-07] MEDS: Meclizine HCl 25 MG TABLET PO (08:33)
[2024-08-07 08:35] VITALS: BP 146/80; PULSE 78; RESP 20; TEMP 36.6; O2SAT 97
[2024-08-07 08:44] VITALS: BP 146/80; PULSE 78; RESP 20; TEMP 36.6; O2SAT 97
== END 2024-08-07 08:44 | disposition home or self-care (01) ==
PROVIDERS: Emergency Provider Internal Medicine
DX: F20.0 Paranoid schizophrenia (principal); F32.A Depression, unspecified; E03.9 Hypothyroidism, unspecified; Z87.891 Personal history of nicotine dependence; Z79.899 Other long term (current) drug therapy
CPT/HCPCS: 36415; 80053; 80143; 80179; 80307; 81001; 85025; 99285; S9485

== ENCOUNTER → 2024-08-06 06:03 | Outpatient (BNV) | payer OTHER, SELFPAY | PROVIDERS: Emergency Provider Internal Medicine; Visit Provider Psychiatry & Neurology Psychiatry | DX: F32.3 Major depressive disorder, single episode, severe with psychotic features (principal) | CPT/HCPCS: 99284 ==

== ENCOUNTER 2025-01-02 13:36 | Outpatient (AMB) | payer MEDICAID, SELFPAY ==
[2025-01-02 13:38] VITALS: BMI 28.3
--- NOTE | 2025-01-02 13:38 | MHC.OFFVIS ---
Vital Signs 01/02/25 13:38 Height 5 ft 4 in Weight 165 lb BMI 28.3 Intake Visit Reasons: Bilateral knee pain Intake Note: Janet is a 54 year old female who presents with complaints of bilateral knee pains. She describes her pains as sharp in nature. She denies any locking or giving way. She has tried Tylenol and anti-inflammatory medicines which gave her minimal relief. She has also done physical therapy exercises which aggravated her pain. She has had cortisone injections in the past which gave her fairly good relief. She wishes to hold off on surgery if possible. Workers Compensation Administrator Services: Workers Compensation Administrator Offered & Declined Allergies No Known Allergies (No Known Allergies*) Allergy (Verified 01/02/25 13:43) Medication List - Last Reconciled 01/03/25 by Beka Moy MD atorvastatin 10 mg PO DAILY clonazepam 0.25 mg PO BEDTIME ferrous sulfate (FeroSul) 1 tab PO QPM levothyroxine 50 mcg PO DAILY meclizine 25 mg PO DAILY nicotine (polacrilex) 4 mg buccal Q2H quetiapine 50 mg PO DAILY PFSH Medical History Personal history of nicotine dependence Family history of colon cancer CLAY III (cervical intraepithelial neoplasia grade III) with severe dysplasia Hepatitis C without hepatic coma Hx of migraines Gastroesophageal reflux Paranoid schizophrenia Vertigo Hypothyroidism Surgical History Hx of tubal ligation Hx of colonoscopy H/O elbow surgery H/O cervical polypectomy Family History Brother Colon cancer, Onset Age: 61 Father Colon cancer Sister Colon cancer, Onset Age: 54 Social History Household Members: None Housing: Apartment Alcohol intake: current Alcohol intake frequency: holidays/special occasions only Patient Tobacco Use Status: Former Tobacco user Tobacco use type: Cigarette Years Smoked: (onset 14yo, 1/2-3/4ppd x 38yrs, 22pyh, quit 2021, now using vape) Current occupational status: unemployed Sexual orientation: Straight/Heterosexual Gender identity: Female Female Reproductive History Menstrual Age of Menarche: 13 Physical Exam Vital Signs: BMI result Body Mass Index 28.3 Const Other: Well-nourished well-developed very friendly female awake alert and oriented x3 in no acute distress Extrem Other: Bilateral lower extremity examination shows good capillary refill, no skin lesions noted, normal sensation light touch Bilateral knee examination shows minimal effusions, palpable crepitus with range of motion, pain with range of motion, no instability Office Procedures AMB Joint Injection/Aspiration Joint Injection/Aspiration Primary Site: left knee Prep: site was prepped using aseptic technique Injected: 40 mg of, DepoMedrol and 1% plain lidocaine Procedure: The patient tolerated the procedure well Coding 00530 - Large joint Procedure code (CPT) selection complete AMB Joint Injection/Aspiration Joint Injection/Aspiration Primary Site: right knee Prep: site was prepped using aseptic technique Injected: 40 mg of, DepoMedrol and 1% plain lidocaine Procedure: The patient tolerated the procedure well Coding 83455 - Large joint Procedure code (CPT) selection complete Results Reviewed Results Reviewed: X-rays of the patient's bilateral knees taken previously show joint space narrowing, subchondral sclerosis, no acute bony abnormalities Assessment & Plan Assessment & Plan (1) Arthritis of left knee: Code(s): M17.12 - Unilateral primary osteoarthritis, left knee Category: Medical (2) Arthritis of right knee: Code(s): M17.11 - Unilateral primary osteoarthritis, right knee Category: Medical (3) Pain in both knees: Code(s): M25.561 - Pain in right knee; M25.562 - Pain in left knee Plan Ms. Moreno Dickinson presents with bilateral knee pains due to degenerative joint disease. The risks and benefits of bilateral knee cortisone injections were discussed at length with the patient. The patient wished to proceed. She tolerated the injections well. She will continue with her home exercise program. She will contact me prior to her follow-up appointment in 3 months should any questions or concerns arise. Feel free to call me at any time should questions regarding her orthopedic management arise. I spent 21 minutes in reviewing the patient's records and imaging studies, seeing the patient and documenting in the medical record. Orders: Orders AMB Joint Injection/Aspiration 01/02/25 M17.11 - Unilateral primary osteoarthritis, right knee AMB Joint Injection/Aspiration 01/02/25 M17.12 - Unilateral primary osteoarthritis, left knee Coding Level of Care Code Est Pt Level 3 (81854) Complex EM visit Add On G2211 Diagnoses Arthritis of left knee M17.12 Arthritis of right knee M17.11 Pain in both knees M25.561; M25.562 CPT Codes Coding - 55656 Large joint: 45838 - Large joint ([id number]) Coding - 82746 Large joint: 17923 - Large joint ([id number])
--- OUTSIDE RECORDS SUMMARY | 2025-01-02 14:25 | XMS_ITS | Encounter Summary ---
Author Organization [employer] Address [address] [place] [address] [address] [place] [address] Care Team Providers Care Instructional Resource Teacher Name Role Phone Aide Ho DO Primary Care Provider [phone] Reason for Visit * Reason Onset Date Comments Nurse Triage 02/10/2023 Encounter Details Date Type Department Care Team ([facility] st Contact Info) Description 02/10/2023 Telephone [facility] MEDICINE [address] [place], [place] [phone] Aide Ho DO [address] [place], [place] [phone] Nurse Triage Social History Tobacco Use Types [...] 02/10/2023 1:18 PM EDT Triage call with [employer] Medical Assistant Refinery Operator ID [id number] and [phone]. Pt didn't answer left message to call [facility] triage line at [phone]. Attempted more than twice. * Telephone Encounter - Cynthia Lu - 02/10/2023 11:50 AM EDT Symptom: Bruises - Not From Injury Outcome: Schedule an urgent appointment (within 1 hour) or talk to a nurse or provider soon Reason: Swollen feet and hands The caller accepted this outcome Please contact pt at [phone] documented in this encounter Plan of Treatment Upcoming Encounters Date Type Department Care Team (Late st Contact Info) Description 01/30/2025 1:30 PM EDT Office Visit [facility] ADULT DENTAL [address] [place] [address] Josue Salazar DDS [address] [place] [address] documented as of this encounter Visit Diagnoses Not on filedocumented in this encounter Additional Health Concerns Assessment Noted Time PHQ-9 Depression Total Score: 3 05/19/20 22 9:25 AM EST documented as of this encounter Care Teams Instructional Resource Teacher Relationship Specialty Start Date End Date Aide Ho DO [address] [place] [address] PCP - General Family Medicine 01/31/22 documented as of this encounter
== END 2025-01-02 14:02 | disposition home or self-care (01) ==
PROVIDERS: Visit Provider Orthopaedic Surgery
DX: M17.0 Bilateral primary osteoarthritis of knee (principal)
CPT/HCPCS: 20610; 99213

== ENCOUNTER → 2025-01-02 13:36 | Outpatient (BNVA) | payer MEDICAID, OTHER, SELFPAY | PROVIDERS: Visit Provider Orthopaedic Surgery | DX: M25.561 Pain in right knee (principal); M25.562 Pain in left knee; M17.12 Unilateral primary osteoarthritis, left knee; M17.11 Unilateral primary osteoarthritis, right knee | CPT/HCPCS: 20610; 99212; J1010; J2003 ==

== ENCOUNTER 2025-04-05 13:17 | Outpatient (AMB) | payer MEDICAID, SELFPAY ==
--- NOTE | 2025-04-05 13:19 | MHC.OFFVIS ---
Intake Visit Reasons: Bilateral knee pain Intake Note: Janet is a 55 year old female who presents with complaints of bilateral knee pains. She describes her pains as sharp in nature. She has had cortisone injections in the past which gave her fairly good relief. She has tried Tylenol and anti-inflammatory medicines which gave her minimal relief. She wishes to hold off on surgery if at all possible. Case Making Machine Operator Required: Yes Case Making Machine Operator Language: Human Resource Analyst Services: Case Making Machine Operator Present Case Making Machine Operator Name: [id number] Allergies No Known Allergies (No Known Allergies*) Allergy (Verified 04/05/25 13:20) Medication List - Last Reconciled 04/05/25 by Beka Moy MD atorvastatin 10 mg PO DAILY clonazepam 0.25 mg PO BEDTIME ferrous sulfate (FeroSul) 1 tab PO QPM levothyroxine 50 mcg PO DAILY meclizine 25 mg PO DAILY nicotine (polacrilex) 4 mg buccal Q2H quetiapine 50 mg PO DAILY PFSH Medical History Personal history of nicotine dependence Family history of colon cancer CLAY III (cervical intraepithelial neoplasia grade III) with severe dysplasia Hepatitis C without hepatic coma Hx of migraines Gastroesophageal reflux Paranoid schizophrenia Vertigo Hypothyroidism Surgical History Hx of tubal ligation Hx of colonoscopy H/O elbow surgery H/O cervical polypectomy Family History Brother Colon cancer, Onset Age: 61 Father Colon cancer Sister Colon cancer, Onset Age: 54 Social History Household Members: None Housing: Apartment Alcohol intake: current Alcohol intake frequency: holidays/special occasions only Patient Tobacco Use Status: Former Tobacco user Tobacco use type: Cigarette Years Smoked: (onset 14yo, 1/2-3/4ppd x 38yrs, 22pyh, quit 2021, now using vape) Current occupational status: unemployed Sexual orientation: Straight/Heterosexual Gender identity: Female Female Reproductive History Menstrual Age of Menarche: 13 Physical Exam Const Other: Well-nourished well-developed very friendly female awake alert and oriented x3 in no acute distress Extrem Other: Bilateral knee examination shows minimal effusions, palpable crepitus with range of motion, pain with range of motion, no instability Office Procedures AMB Joint Injection/Aspiration Joint Injection/Aspiration Primary Site: left knee Prep: site was prepped using aseptic technique Injected: 40 mg of, DepoMedrol, with 4 mL of and 1% plain lidocaine Procedure: The patient tolerated the procedure well Coding - Large joint Procedure code (CPT) selection complete AMB Joint Injection/Aspiration Joint Injection/Aspiration Primary Site: right knee Prep: site was prepped using aseptic technique Injected: 40 mg of, DepoMedrol, with 4 mL of and 1% plain lidocaine Procedure: The patient tolerated the procedure well Coding - Large joint Procedure code (CPT) selection complete Results Reviewed Results Reviewed: X-rays of the patient's bilateral knees taken previously show joint space narrowing, subchondral sclerosis, no acute bony abnormalities Assessment & Plan Assessment & Plan (1) Arthritis of left knee: Code(s): M17.12 - Unilateral primary osteoarthritis, left knee Category: Medical (2) Arthritis of right knee: Code(s): M17.11 - Unilateral primary osteoarthritis, right knee Category: Medical (3) Pain in both knees: Code(s): M25.561 - Pain in right knee; M25.562 - Pain in left knee Plan Ms. Moreno Dickinson presents with bilateral knee pains due to osteoarthritis. The risks and benefits of bilateral knee cortisone injections were discussed at length with the patient. The patient wished to proceed. She tolerated the injections well. She will continue with her activity modifications. She will contact me prior to her follow-up appointment in 3 months should any questions or concerns arise. Feel free to call me at any time should questions regarding her orthopedic management arise. I spent 21 minutes in reviewing the patient's records and imaging studies, seeing the patient and documenting in the medical record. Orders: Orders AMB Joint Injection/Aspiration Today M17.11 - Unilateral primary osteoarthritis, right knee AMB Joint Injection/Aspiration Today M17.12 - Unilateral primary osteoarthritis, left knee Coding Level of Care Code Est Pt Level 3 (58987) Complex EM visit Add On G2211 Diagnoses Arthritis of left knee M17.12 Arthritis of right knee M17.11 Pain in both knees M25.561; M25.562 CPT Codes Coding - 30822 Large joint: 09513 - Large joint ([id number]) Coding - 03449 Large joint: - Large joint ([id number])
--- OUTSIDE RECORDS SUMMARY | 2025-04-05 16:17 | XMS_ITS | Encounter Summary ---
Author Organization [employer] Address [address] [facility] [address] [place] [address] Care Team Providers Care Clinical Outcomes Manager Name Role Phone CleoAide crabtree Primary Care Provider + [phone] Encounter Details Date Type Department Care Team (Late st Contact Info) Description 09/15/2023 Orders Only [facility] MEDICINE [address] [place], [place] [phone] Provider, MD Nadeem Social History Tobacco Use Types Packs/Day Years [...] Care Team (Late st Contact Info) Description 04/06/2025 3:00 PM EDT Office Visit [facility] ADULT DENTAL [address] [place] [address] Josue Salazar, DDS [address] [place] [address] 08/06/2025 10:00 AM EST Office Visit [facility] OPTOMETRY [address] [place], [place] [phone] Keli Escalante, OD [address] [place] [address] documented as of this encounter Procedures Procedure Name Priority Date/Time Associated Diagnosis Comments HM COLONOSCOPY Routine 08/21/2022 11:25 AM EDT documented in this encounter Results * Hm Colonoscopy (08/21/2022 11:25 AM EDT) Historical Provider HEALTH MAINTENANCE Final Result documented in this encounter Visit Diagnoses Not on filedocumented in this encounter Additional Health Concerns Assessment Noted Time PHQ-9 Depression Total Score: 3 05/19/20 22 9:25 AM EST documented as of this encounter Care Teams Clinical Outcomes Manager Relationship Specialty Start Date End Date Aide Ho DO [address] [place] [address] PCP - General Family Medicine 01/31/22 documented as of this encounter
--- OUTSIDE RECORDS SUMMARY | 2025-04-05 16:17 | XMS_ITS | Encounter Summary ---
Author Organization [employer] Address [address] [facility] [address] [place] [address] Care Team Providers Care Irrigation Technician Name Role Phone Aide Ho DO Primary Care Provider [phone] Reason for Visit * Reason Onset Date Comments Nurse Triage 02/10/2023 Encounter Details Date Type Department Care Team ([facility] st Contact Info) Description 02/10/2023 Telephone [facility] MEDICINE [address] [place], [place] [phone] Aide Ho DO [address] [place], [place] [phone] Nurse Triage Social History Tobacco Use Types [...] 02/10/2023 1:18 PM EDT Triage call with [place] Soc Analyst ID [id number] and [phone]. Pt didn't answer left message to call [facility] triage line at [phone]. Attempted more than twice. * Telephone Encounter - Cynthia uL - 02/10/2023 11:50 AM EDT Symptom: Bruises - Not From Injury Outcome: Schedule an urgent appointment (within 1 hour) or talk to a nurse or provider soon Reason: Swollen feet and hands The caller accepted this outcome Please contact pt at [phone] documented in this encounter Plan of Treatment Upcoming Encounters Date Type Department Care Team (Late st Contact Info) Description 04/06/2025 3:00 PM EDT Office Visit [facility] ADULT DENTAL [address] [place] [address] Josue Salazar DDS [address] [place] [address] 08/06/2025 10:00 AM EST Office Visit [facility] OPTOMETRY [address] [place] [address] Tarka, Keli, OD [address] [place] [address] documented as of this encounter Visit Diagnoses Not on filedocumented in this encounter Additional Health Concerns Assessment Noted Time PHQ-9 Depression Total Score: 3 05/19/20 22 9:25 AM EST documented as of this encounter Care Teams Irrigation Technician Relationship Specialty Start Date End Date Aide Ho DO [address] [place] [address] PCP - General Family Medicine 01/31/22 documented as of this encounter
--- OUTSIDE RECORDS SUMMARY | 2025-04-05 16:17 | XMS_ITS | Encounter Summary ---
Author Organization [employer] Address [address] [place] [address] [address] [place] [phone] Care Team Providers Care Research Technologist Name Role Phone Aide Ho DO Primary Care Provider [phone] Encounter Details Date Type Department Care Team (Latest Contact Info) Description 01/30/2019 Abstract [facility] CONVERSIONS Dental, Provider, DDS Social History Tobacco [...] Description 04/06/2025 3:00 PM EDT Office Visit [facility] ADULT DENTAL [address] [place] [address] Josue Salazar, DDS [address] [place] [address] 08/06/2025 10:00 AM EST Office Visit [facility] OPTOMETRY [address] [place] [address] Keli Escalante, OD [address] [place] [address] documented as of this encounter Visit Diagnoses Not on filedocumented in this encounter Care Teams Research Technologist Relationship Specialty Start Date End Date Aide Ho DO [address] [place] [address] PCP - General Family Medicine 01/31/22 documented as of this encounter
--- OUTSIDE RECORDS SUMMARY | 2025-04-05 16:17 | XMS_ITS | Clinical Summary ---
Author Organization [employer] Address [address] [place] [address] [address] [place] [address] Care Team Providers Care Java Sql Developer Name Role Phone Aide Ho DO Primary Care Provider Allergies No known active allergies Medications Psyllium (METAMUCIL PO) Take 1 packet by mouth 1 (one) time each day. 11/26/19 22 Active carboxymethylce llulose 1 % ophthalmic solution Administer 2-4 drops into both eyes if needed for dry eyes. 08/29/19 22 Active sertraline (Zoloft) 100 MG tablet Take [...] and at bedtime (itching). 10 mL 2 10/01/19 23 Active polyethylene glycol, PEG, 3350 (Glycolax) 17 GM/SCOOP powder MIX with WATER AND TAKE DIRECTED BY Gastroenterology ([facility]) 07/20/19 23 Active Varenicline Tartrate, Starter, 0.5 MG X 11 & 1 MG X 42 tablet therapy pack Take 0.5 mg by mouth Once per day for 3 days, THEN 0.5 mg 2 times daily for 4 days, THEN 1 mg 2 times daily for 21 days. 42 each 12/08/19 24 Active Additional Information Patient not taking.Reported on 02/09/2025 Varenicline Tartrate,Contin ue, 1 MG tablet Take 1 mg by mouth 2 times daily. 60 tablet 1 12/08/19 24 Active azelastine (Astelin) 0.1 % nasal spray Administer 1 spray into each nostril 2 times daily. Use in each nostril as directed 30 mL 12/27/19 24 Active Additional Information Patient not taking.Reported on 02/09/2025 nicotine polacrilex (Commit) 2 MG lozenge DISSOLVE 1 LOZENGE BY MOUTH NEEDED FOR SMOKING CESSATION 72 lozenge 2 01/19/20 24 Active Ferrous Sulfate (iron) 325 (65 Fe) MG tabletIndicatio ns:Anemia, unspecified type TAKE 1 TABLET BY MOUTH EVERY EVENING WITH ORANGE JUICE OR A FULL GLASS OF WATER 90 tablet 3 08/16/19 25 Active loratadine (Claritin) 10 MG tablet TAKE 1 TABLET BY MOUTH EVERY MORNING 90 tablet 3 08/16/19 25 Active triamcinolone (Nasacort) 55 MCG/ACT nasal inhaler Administer 2 sprays into each nostril Once per day. 16.5 g 09/28/19 026 Active pseudoephedrine ER (Sudafed-12 Hour) 120 MG 12 hr tablet Take 1 tablet (120 mg) by mouth every 12 (twelve) hours if needed for congestion. Do not crush, chew, or split. 20 tablet 09/28/19 25 026 Active D3 Super Strength 50 MCG (2000 UT) capsule TAKE 1 CAPSULE BY MOUTH EVERYDAY AT NOON 90 capsule 1 10/20/19 25 Active gabapentin (Neurontin) 300 MG capsule TAKE 1 CAPSULE BY MOUTH AT BEDTIME 30 capsule 3 11/10/19 25 Active meclizine (Antivert) 25 MG tabletIndicatio ns:Dizziness TAKE 1 TABLET BY MOUTH THREE TIMES DAILY IN THE MORNING, AT NOON, AND AT BEDTIME NEEDED FOR DIZZINESS 30 tablet 2 12/12/19 25 Active baclofen (Lioresal) 10 MG tablet TAKE 1 TABLET BY MOUTH THREE TIMES DAILY IN THE MORNING, AT NOON, AND AT BEDTIME NEEDED FOR MUSCLE SPASMS 60 tablet 2 12/22/19 25 Active atorvastatin (Lipitor) 10 MG tablet TAKE 1 TABLET BY MOUTH EVERYDAY AT NOON 90 tablet 3 01/09/20 25 Active ibuprofen 600 MG tabletIndicatio ns:Pain TAKE 1 TABLET BY MOUTH THREE TIMES DAILY WITH FOOD NEEDED FOR HEADACHE 60 tablet 2 01/18/20 25 Active acetaminophen (Tylenol) 500 MG tablet Take 1 tablet (500 mg) by mouth every 6 (six) hours if needed for mild pain. 20 tablet 01/31/20 25 Active levothyroxine (Synthroid, Levoxyl) 100 MCG tablet TAKE 1 TABLET BY MOUTH EVERY MORNING BEFORE BREAKFAST 90 tablet 02/24/20 25 Active Ventolin HFA 108 (90 Base) MCG/ACT inhaler INHALE 2 PUFFS BY MOUTH EVERY 6 HOURS NEEDED FOR WHEEZING 18 g 02/24/20 25 Active Diclofenac Sodium 1 % gel APPLY 2 GRAMS TOPICALLY TO AFFECTED AREA(S) 4 TIMES A DAY IN THE MORNING, AT NOON, IN THE EVENING, AND AT BEDTIME FOR PAIN 100 g 3 03/01/20 25 Active Active Problems Problem Noted Date Diagnosed Date Partial edentulism 02/09/2025 Pain, dental 01/30/2025 Periodontal disease 01/30/2025 Dental abscess 01/27/2024 BMI 26.0-26.9,adult 12/08/2023 Hearing loss 09/30/2022 Diverticulosis 09/30/2022 Tobacco dependence 08/16/2022 Family history of colon cancer 08/16/2022 Chronic pain of left elbow 08/16/2022 Hyperlipidemia 08/16/2022 Anemia 08/16/2022 Chronic allergic rhinitis 04/22/2022 Cervical intraepithelial lillian plasia grade III with severe dysplasia 10/13/2018 History of hepatitis C 01/22/2017 Chronic migraine 07/31/2015 Hypothyroidism 03/25/2015 Chronic gastroesophageal reflux disease 03/25/20 15 Paranoid schizophrenia (CMS/HCC) 03/25/2015 Resolved Problems Problem Noted Date Diagnosed Date Resolved Date Family history of tobacco ab use and dependence 08/16/2022 08/16/2022 Cigarette smoker 04/22/2022 05/19/2022 Hepatitis A antibody positive 02/04/2018 09/30/2022 Pain in elbow 03/25/2015 05/19/2022 Encounters Date Type Department Care Team Description 03/01/2025 Refill [facility] [address] [place] [address] Aide Ho DO 02/23/2025 Refill [facility] [address] [place] [address] Aide Ho DO 02/09/2025 3:00 PM EDT Office Visit [facility] [address] [place] [address] Josue Salazar DDS Partial edentulism, unspecified edentulism class (Primary Dx) 01/30/2025 1:30 PM EDT Office Visit [facility] [address] [place] [address] Josue Salazar DDS Pain, dental (Primary Dx); Periodontal disease 01/15/2025 Refill [facility] [address] [place] [address] Aide Ho DO Pain 01/07/2025 Refill [facility] [address] [place] [address] Aide Ho DO 01/05/2025 Telephone [facility] [address] [place] [phone] Aide Ho DO 01/03/2025 Refill [facility] [address] [place] [phone] Aide Ho, from Last 3 Months Immunizations Immunization Administration Dates Next Due Influenza Injectable Quadriv [...] Sign Reading Time Taken Comments Blood Pressure 124/74 01/30/2025 1:34 PM EDT Pulse 70 01/30/2025 1:34 PM EDT Temperature 35.9 C (96.7 F) 09/27/2024 11:56 AM EDT Respiratory Rate 21 09/27/2024 11:56 AM EDT Oxygen Saturation 98% 09/27/2024 11:56 AM EDT Inhaled Oxygen Concentration - - Weight 69.9 kg (154 lb) 09/27/2024 11:56 AM EDT Height 167.6 cm (5' 6 ) 09/27/2024 11:56 AM EDT Body Mass Index 24.86 09/27/2024 11:56 AM EDT Plan of Treatment Upcoming Encounters Date Type Department Care Team (Late st Contact Info) Description 04/06/2025 3:00 PM EDT Office Visit [facility] [address] [place] [address] Josue Salazar, DDS [address] [place] [address] 08/06/2025 10:00 AM EST Office Visit [facility] [address] [place] [address] Tarka, Keli, OD [address] [place] [address] Health Maintenance Due Date Last Done Comments CT Colonography 1972 FIT DNA/Cologuard 1972 FIT 1972 FOBT 1972 Sigmoidoscopy 1972 Disability Screening 1972 Hepatitis A Vaccines (1 of 2 - Risk 2-dose series) 01/16/1991 Hepatitis B Vaccines (1 of 3 - 19+ 3-dose series) 01/16/1991 Dental Oral Exam 08/18/2024 02/18/2024, , 02/21/2021, Additional history exists Dental Prophylaxis 08/18/2024 02/18/2024, 0 02/21/2021, 08/07/2019, Additional history exists SDOH Screening 11/28/2024 11/29/2023 Influenza Vaccine (#1) 2025 , 04/12/2023, 04/09/2022, Additional history exists Dental X-Ray: Bitewings 02/18/2025 02/18/20 24, 02/21/2021, 12/29/2018 Mammogram 05/08/2025 05/08/2024, 05/07/2023 Alcohol/Substance Use Screening 06/20/2025 06/20/2024 Depression Screening 06/20/2025 06/20/2024, 06/20/19 25 Colonoscopy 08/21/2025 08/21/2022 Colorectal Cancer Screening 08/21/2025 Tobacco Screening 02/09/2026 02/09/2025 Cervical Cancer Screening 01/23/2027 HPV/Cotest 01/23/2027 01/24/2024, [...] Completed 06/20/2024, 11/2022, 05/08/2022, Additional history exists HIB Vaccines Aged Out No longer eligi ble based on patient's age to complete this topic HPV Vaccines Aged Out No longer eligi ble based on patient's age to complete this topic IPV Vaccines Aged Out No longer eligi ble based on patient's age to complete this topic Meningococcal B Vaccine Aged Out No l onger eligible based on patient's age to complete [...] Procedure Name Priority Date/Time Associated Diagnosis Comments CASE PRESENTATION, DETAILED AND EXTENSIVE TREATMENT PLANNING Routine 02/09/2025 3:00 PM EDT 7 ADD TOOTH TO EXISTING PARTIAL DENTURE Routine 02/09/2025 3:00 PM EDT REPAIR RESIN PARTIAL DENTURE BASE, MAX Routine 02/09/2025 3:00 PM EDT DENTURE IMPRESSION Routine 01/30/2025 1: 30 PM EDT CASE PRESENTATION, DETAILED AND EXTENSIVE TREATMENT PLANNING Routine 01/30/2025 1:30 PM EDT 7 EXTRACTION, ERUPTED TOOTH OR EXPOSED ROOT (ELEVATION/FORCEPS REMOVAL) Routine 01/30/2025 1:30 PM EDT 26 EXTRACTION, ERUPTED TOOTH OR EXPOSED ROOT (ELEVATION/FORCEPS REMOVAL) Routine 01/30/2025 1:30 PM EDT BI MAMMOGRAM SCREENING TOMOSYNTHESIS BILATERAL Routine 05/08/2024 2:15 PM EST PROPHYLAXIS - ADULT Routine 02/18/2024 1 :00 PM EDT Dental calculus Dental plaque INTRAORAL - COMPLETE SERIES OF RADIOGRAPHIC IMAGES Routine 02/18/2024 1:00 PM EDT PERIODIC ORAL EVALUATION - ESTABLISHED PATIENT Routine 02/18/2024 1:00 PM EDT [...] Recently Relevant to Health Maintenance Results * BI Mammogram Screening Tomosynthesis Bilateral (05/08/2024 2:15 PM EST) Anatomical Region Laterality Modality Breast Bilateral Mammography 05/08/2024 2:15 PM EST Narrative 05/15/2024 9:03 AM EST [address] [place] [address] Mammography Report Signed Patient: Janet Shetty MR#: [id number] : 1970 Acct:[id number] Age/Sex: 54 / F ADM Date: 05/08/24 Loc: HO.MAMMO Attending Dr: Aide Ho DO Ordering Physician: Aide Ho DO Results: 1N egative Date of Service: 05/08/24 Follow Up: 1 Year From Orig inal Mammogram Procedure(s): MM tomosynthesis screening BI Accession Number(s): [id number] cc: Aide Ho DO EXAMINATION: MM SCREENING [...] 05/15/24 0900 DD/ 1415 TD/TT: 05/08/24 1425 Experimental Box Tester: Procedure Note Donotuseinterpreter, Image - 05/15/[address] [place] [address] Mammography Report Signed Patient: Janet Shetty MMR#: [id number] : 1970Acct:[id number] Age/Sex: 54 / FADM Date: 05/08/24 Loc: HO.MAMMO Attending Dr: Aide Ho DO Ordering Physician: Aide Ho DOResults: 1N egative Date of Service: 05/08/24Follow Up: 1 Year From Orig inal Mammogram Procedure(s): MM tomosynthesis screening BI Accession Number(s): [id number] cc: Aide Ho DO EXAMINATION: MM SCREENING [...] by: Chelo Harrison DO 05/15/2024 09:00 AM [facility] Dictated By: Chelo Harrison DO Signed By: <Electronically signed by Chelo Harrison DO in OV> 05/15/24 0900 DD/ 1415 TD/TT: 05/08/24 1425 Experimental Box Tester: us Aide Ho DO IMG BI PROCEDURES Final Resu lt * ThinPrep Imaging Pap and HPV mRNA E6/E7 with Reflex to HPV 16,18/45 (01/24/2024 1:20 PM EDT) HPV 16 RNA [facility] HPV 18/45 RNA [facility] HPV nRNA E6/E7 Not Detected Not Detected [facility] Comment:Methodology: Transcr iption-Mediated AmplificationThis assay detects E6/E7 viral messenger RNA (mRNA) from 14high-risk HPV types (16,18,31,33,35,39,45,51,52,56,58,59,66,68).Cervical sources are required for HPV testing.If a vaginal source from a patient who has had atotal hysterectomy with removal of cervix wassubmitted, please contact the testing laboratoryfor alternative testing options.For additional information, please refer [email or web address]/[email or web address](This link if provided for information/educational purposes only.)THIS TEST WAS PERFORMED AT:[facility] [address] [phone] HOPKINS MD SOURCE: SEE NOTE [facility] Comment:None given Report Status: [facility] Clinical Information: SEE NOTE [facility] Comment:None given LMP: SEE NOTE [facility] Comment:NONE GIVEN Prev. PAP: SEE NOTE [facility] Comment:NONE GIVEN Prev. BX: SEE NOTE [facility] Comment:NONE GIVEN Statement Of Adequacy: SEE NOTE [facility] Comment:Satisfactory for mario luation.Endocervical/transformation zone component absent. General Categorization: [facility] Interpretation/Result: SEE NOTE [facility] Comment:Cytology Results: Ne gative for intraepitheliallesion or malignancy. Cytology Comment SEE NOTE [facility] Comment:This Pap test has be en evaluated with computerassisted technology. Flame Planer: SEE NOTE [facility] Comment:RPR, CT (ASCP) CT sc reening location: [address] [address] Review Flame Planer: [facility] Pathologist [facility] PAP Infection [facility] See Note SEE NOTE [facility] Comment:EXPLANATORY NOTE:The Pap is a screening test for cervical cancer. It isnot a diagnostic test and is subject to false negativeand false positive results. It is most reliable when asatisfactory sample, regularly obtained, is submittedwith relevant clinical findings and history, and whenthe Pap result is evaluated along with historic andcurrent clinical information. 01/24/2024 1:20 PM EDT 01/24/2024 3:18 PM EDT Narrative [facility] - 01/27/2024 4:50 PM EDT SEE SCANNED RESULTS IN EMR us Generic External Data Provider LAB PATHOLOGY ORD ERABLES Final Result Performing Organization Address [facility] Co de Phone Number [facility] [address] [place] [phone] * HIV-1/2 Antigen and Antibodies, Fourth Generation, with Reflexes (12/23/2023 11:11 AM EDT) HIV AB/AG Nonreactive Nonreactive [facility] Comment:HIV-1 p24 Ag and/or HIV-1/HIV-2 Ab not detected.A test result that is nonreactive does not exclude thepossibility of exposure to or infection with HIV-1 and/orHIV-2. Nonreactive results in this assay for individualswith prior exposure to HIV-1 and/or HIV-2 may be due toantigen and antibody levels that are below the limit ofdetection of this assay.The [employer] HIV Ag/Ab Combo assay result andsupplemental assay results should be interpreted inconjunction with the patient's clinical presentation,history and other laboratory results. If the results areinconsistent with clinical evidence, additional testing issuggested to confirm the result. Blood Venous blood specimen / Unknown 12/23/2023 11:11 AM EDT 12/23/2023 1:03 PM EDT us Aide Ho DO LAB BLOOD ORDERABLES Final R esult Performing Organization Address [facility]/ZIP Co de Phone Number [facility] [address] [place] [address] [phone] * (ABNORMAL) Lipid Panel, Standard (12/23/2023 11:11 AM EDT) Triglycerides 104 <150 mg/dL [facility] Comment:Desirable Triglyceri de: less than 150 mg/dLBorderline High Triglyceride 150-199 mg/dLHigh Triglyceride: 200-499 mg/dLVery High Triglyceride: greater than or equal to 5OO mg/dL Cholesterol 176 <200 mg/dL [facility] Comment:Desirable Cholestero l: less than 200 mg/dLBorderline High Cholesterol: 200-239 mg/dLHigh Cholesterol: greater than 239 mg/dL LDL Cholesterol Calculated 101(H) <100 mg/dL [facility] Comment:Desirable LDL: less than 100 mg/dLNear Optimal/Above Optimal LDL: 110- 129 mg/dLBorderline High LDL: 130-159 mg/dLHigh LDL: 160-189 mg/dLVery High LDL: greater than or equal to 190 mg/dL HDL Cholesterol 55 >40 mg/dL [facility] Comment:Desirable HDL: great er than 40 mg/dL Note: This HDL assay may give artificially low results in patients with liver disease. Blood Venous blood specimen / Unknown 12/23/2023 11:11 AM EDT 12/23/2023 1:03 PM EDT Aide Ho DO LAB BLOOD ORDERABLES Final R esult [facility] [address] [place] [phone] * Colonoscopy (08/21/2022 11:25 AM EDT) us Historical Provider HEALTH MAINTENANCE Final Result from Last 3 Months or Most Recently Relevant to Health Maintenance Insurance [facility] C3 Care Teams Java Sql Developer Relationship Specialty Start Date End Date Aide Ho DO [address] [place] [phone] PCP - General Family Medicine 01/31/22
--- OUTSIDE RECORDS SUMMARY | 2025-04-05 16:17 | XMS_ITS | Encounter Summary ---
Author Organization [employer] Address [address] [place] [address] [address] [place] [phone] Care Team Providers Care Relay Operator Name Role Phone Aide Ho DO Primary Care Provider [phone] Encounter Details Date Type Department Care Team (Latest Contact Info) Description 02/21/2021 Abstract [facility] Dental, Provider, DDS Social History [...] Description 04/06/2025 3:00 PM EDT Office Visit [facility] [address] [place] [address] Josue Salazar, DDS [address] [place] [address] 08/06/2025 10:00 AM EST Office Visit [facility] [address] [place] [address] Keli Escalante, OD [address] [place] [address] documented as of this encounter Visit Diagnoses Not on filedocumented in this encounter Care Teams Relay Operator Relationship Specialty Start Date End Date Aide Ho DO [address] [place] [address] PCP - General Family Medicine 01/31/22 documented as of this encounter
== END 2025-04-05 13:37 | disposition home or self-care (01) ==
LOC: HO.HOS 13:18
PROVIDERS: Visit Provider Orthopaedic Surgery
DX: M17.0 Bilateral primary osteoarthritis of knee (principal); M25.561 Pain in right knee; M25.562 Pain in left knee
CPT/HCPCS: 20610; 99213

== ENCOUNTER → 2025-04-05 13:17 | Outpatient (BNVA) | payer MEDICAID, SELFPAY | PROVIDERS: Visit Provider Orthopaedic Surgery | DX: M25.561 Pain in right knee (principal); M25.562 Pain in left knee; M17.0 Bilateral primary osteoarthritis of knee | CPT/HCPCS: 20610; 99212; J1010; J2003 ==

== ENCOUNTER 2025-05-15 08:38 | Outpatient (REF) | payer MEDICAID, SELFPAY ==
--- NOTE | ~2025-05-15 | XR_ITS ---
EXAMINATION: XR SHOULDER, LEFT CLINICAL INFORMATION: M25.512 - Pain in left shoulder COMPARISON: None available. TECHNIQUE: AP external rotation, scapular Y views of the left shoulder. FINDINGS: Marginal osteophyte is present involving the medial humeral head. Glenoid humeral joint is not dislocated. AC joint is grossly intact. XR/XR shoulder LT min 2V IMPRESSION: Mild to moderate degenerative change involving the left glenoid humeral joint. Electronically signed by: Didier Garzon MD 05/15/2025 11:27 AM [facility]
== END 2025-05-15 08:39 | disposition home or self-care (01) ==
LOC: HO.HOSX 08:38
PROVIDERS: Visit Provider Orthopaedic Surgery
DX: M25.312 Other instability, left shoulder (principal)
CPT/HCPCS: 73030

== ENCOUNTER 2025-05-15 11:17 | Outpatient (AMB) | payer MEDICAID, SELFPAY ==
--- NOTE | 2025-05-15 11:23 | A.OFFVIS_ITS ---
Vital Signs 05/15/25 11:25 Height 5 ft 6 in Weight 170 lb BMI 27.4 Handedness Right Intake Visit Reasons: Left shoulder pain and weakness Intake Note: Janet is a 55 year old right hand dominant female who presents with complaints of progressively worsening left shoulder pain and weakness. The patient states that several years ago she ?dislocated? her left shoulder. Since that time she has had progressively worsening shoulder pain and weakness. She reports difficulty lifting her left hand above shoulder height. She has failed the last 6 weeks of conservative treatment which has included Tylenol, anti-inflammatory medicines, muscle relaxants, physical therapy exercises and a home exercise program. Licensed Chemical Spray Technician Required: Yes Licensed Chemical Spray Technician Language: Band Director Services: Licensed Chemical Spray Technician Offered & Declined Accompanied by: Partner Allergies No Known Allergies (No Known Allergies*) Allergy (Verified 05/15/25 11:26) Medication List - Last Reconciled 05/15/25 by Beka Moy MD albuterol sulfate 90 mcg/actuation (Ventolin HFA) 2 puffs inhalation Q6H PRN atorvastatin 10 mg PO DAILY baclofen 10 mg PO TID PRN clonazepam 0.25 mg PO BEDTIME ferrous sulfate (FeroSul) 1 tab PO QPM fluticasone propionate 50 mcg/actuation 2 sprays intranasal QAM ibuprofen 600 mg PO TID PRN levothyroxine 50 mcg PO DAILY loratadine 10 mg PO QAM meclizine 25 mg PO DAILY nicotine (polacrilex) 4 mg buccal Q2H pseudoephedrine HCl ER 120 mg PO Q12H PRN quetiapine 50 mg PO DAILY sertraline 200 mg PO QAM PFSH Medical History Personal history of nicotine dependence Family history of colon cancer CLAY III (cervical intraepithelial neoplasia grade III) with severe dysplasia Hepatitis C without hepatic coma Hx of migraines Gastroesophageal reflux Paranoid schizophrenia Vertigo Hypothyroidism Surgical History Hx of tubal ligation Hx of colonoscopy H/O elbow surgery H/O cervical polypectomy Family History Brother Colon cancer, Onset Age: 61 Father Colon cancer Sister Colon cancer, Onset Age: 54 Social History Household Members: None Housing: Apartment Alcohol intake: current Alcohol intake frequency: holidays/special occasions only Patient Tobacco Use Status: Former Tobacco user Tobacco use type: Cigarette Years Smoked: (onset 14yo, 1/2-3/4ppd x 38yrs, 22pyh, quit 2021, now using vape) Current occupational status: unemployed Sexual orientation: Straight/Heterosexual Gender identity: Female Female Reproductive History Menstrual Age of Menarche: 13 Physical Exam Vital Signs: BMI result Body Mass Index 27.4 Const Other: Well-nourished well-developed very friendly female awake alert and oriented x3 in no acute distress Extrem Other: Left shoulder examination shows decreased range of motion when compared to her right shoulder, 4+ out of 5 strength with supraspinatus testing, positive impingement signs Results Reviewed Results Reviewed: X-rays of the patient's left shoulder show severe acromioclavicular joint narrowing, a type 2 acromion, no acute bony abnormalities Assessment & Plan Assessment & Plan (1) Rotator cuff insufficiency of left shoulder: Code(s): M25.312 - Other instability, left shoulder Category: Medical Plan Ms. Moreno Dickinson presents with progressively worsening left shoulder pain and weakness due to impingement syndrome and possible rotator cuff tearing. Thus, I will send the patient for an MRI of her left shoulder for further evaluation. I will see her back once the MRI is completed to discuss findings treatment options. She will continue with her activity modifications in the meantime. Feel free to me at any time should questions regarding her orthopedic management arise. I spent 21 minutes in reviewing the patient's records and imaging studies, seeing the patient and documenting in the medical record. Orders: Orders XR shoulder LT min 2V Today M25.512 - Pain in left shoulder MR shoulder LT wo con 05/16/25 M25.312 - Other instability, left shoulder Coding Level of Care Code Est Pt Level 3 (84178) Complex visit Add On G2211 Diagnoses Rotator cuff insufficiency of left shoulder M25.312
[2025-05-15 11:25] VITALS: BMI 27.4
== END 2025-05-15 11:48 | disposition home or self-care (01) ==
LOC: HO.HOS 11:18
PROVIDERS: Visit Provider Orthopaedic Surgery
DX: M25.312 Other instability, left shoulder (principal)
CPT/HCPCS: 99213

== ENCOUNTER → 2025-05-15 11:19 | Outpatient (BNV) | payer MEDICAID, SELFPAY | PROVIDERS: Visit Provider Radiology Diagnostic Radiology | DX: M19.012 Primary osteoarthritis, left shoulder (principal) | CPT/HCPCS: 73030 ==

== ENCOUNTER 2025-05-21 13:43 | Outpatient (REF) | payer MEDICAID, SELFPAY ==
--- NOTE | ~2025-05-21 | MM_ITS ---
EXAMINATION: MM SCREENING DIGITAL BREAST TOMOSYNTHESIS, BILATERAL CLINICAL INFORMATION: Screening. Asymptomatic. COMPARISON: Mammography: Comparison is made with available priors TECHNIQUE: Digital breast mammography with tomosynthesis is performed in both the craniocaudal and mediolateral oblique views along with computer-aided detection (CAD). FINDINGS: The breasts are heterogeneously dense, which may obscure small masses. There are no significant masses, abnormal calcifications, or other abnormalities. MM/MM tomosynthesis screening BI IMPRESSION: No mammographic evidence of malignancy. ASSESSMENT: BI-RADS Category 1: Negative RECOMMENDATION: Routine annual mammography screening. 1 year F/U This examination should not preclude the clinical evaluation of a suspicious palpable abnormality. This patient's information was entered into a reminder system with a target due date for their next mammogram. Electronically signed by: Chelo Harrison DO 05/23/2025 02:38 PM [facility]
--- OUTSIDE RECORDS SUMMARY | 2025-05-21 19:58 | XMS_ITS | Encounter Summary ---
Author Organization [employer] Address [address] [place] [address] [address] [place] [address] Care Team Providers Care Feature Writer Name Role Phone Aide Ho DO Primary Care Provider [phone] Encounter Details Date Type Department Care Team (Latest Contact Info) Description 02/21/2021 Abstract [facility] CONVERSIONS Dental, Provider, DDS Social [...] Care Team (Late st Contact Info) Description 08/06/2025 10:00 AM EST Office Visit [facility] [address] [place] [address] TarKeli drake, OD [address] [place] [address] documented as of this encounter Visit Diagnoses Not on filedocumented in this encounter Care Teams Feature Writer Relationship Specialty Start Date End Date Aide Ho DO [address] [place] [address] PCP - General Family Medicine 01/31/22 documented as of this encounter
--- OUTSIDE RECORDS SUMMARY | 2025-05-21 19:58 | XMS_ITS | Encounter Summary ---
Author Organization [employer] Address [address] [facility] 7t [place] [address] Care Team Providers Care Performance Makeup Artist Name Role Phone Aide Ho DO Primary Care Provider [phone] Reason for Visit * Reason Onset Date Comments Nurse Triage 02/10/2023 Encounter Details Date Type Department Care Team ([facility] st Contact Info) Description 02/10/2023 Telephone [facility] MEDICINE [address] [place], [place] [phone] Aide Ho DO [address] [place], [place] [phone] Nurse Triage Social History Tobacco Use Types [...] 02/10/2023 1:18 PM EDT Triage call with [place] Counselor [place] [id number] and [phone]. Pt didn't answer left message to call [facility] triage line at [phone]. Attempted more than twice. * Telephone Encounter - Cynthia Lu - 02/10/2023 11:50 AM EDT Symptom: Bruises - Not From Injury Outcome: Schedule an urgent appointment (within 1 hour) or talk to a nurse or provider soon Reason: Swollen feet and hands The caller accepted this outcome Please contact pt at [phone] documented in this encounter Plan of Treatment Upcoming Encounters Date Type Department Care Team (Late st Contact Info) Description 08/06/2025 10:00 AM EST Office Visit [facility] OPTOMETRY [address] [place] [address] Keli Escalante, OD [address] [place] [address] documented as of this encounter Visit Diagnoses Not on filedocumented in this encounter Additional Health Concerns Assessment Noted Time PHQ-9 Depression Total Score: 3 05/19/20 22 9:25 AM EST documented as of this encounter Care Teams Performance Makeup Artist Relationship Specialty Start Date End Date Aide Ho DO [address] [place] [address] PCP - General Family Medicine 01/31/22 documented as of this encounter
--- OUTSIDE RECORDS SUMMARY | 2025-05-21 19:58 | XMS_ITS | Encounter Summary ---
Author Organization [employer] Address [address] [place] [address] 7t [place] [address] Care Team Providers Care Escalator Constructor Name Role Phone Aide Ho DO Primary Care Provider [phone] Encounter Details Date Type Department Care Team (Latest Contact Info) Description 01/30/2019 Abstract [facility] CONVERSIONS Dental, Provider, DDS Social History [...] Description 08/06/2025 10:00 AM EST Office Visit [facility] OPTOMETRY [address] [place] [address] TarKeli drake, OD [address] [place] [address] documented as of this encounter Visit Diagnoses Not on filedocumented in this encounter Care Teams Escalator Constructor Relationship Specialty Start Date End Date Aide Ho DO [address] [place] [address] PCP - General Family Medicine 01/31/22 documented as of this encounter
--- OUTSIDE RECORDS SUMMARY | 2025-05-21 19:58 | XMS_ITS | Encounter Summary ---
Author Organization [employer] Address [address] [facility] 7t [place] [address] Care Team Providers Care Community Chest Officer Name Role Phone CleoAide crabtree Primary Care Provider + [phone] Encounter Details Date Type Department Care Team (Late st Contact Info) Description 09/15/2023 Orders Only [facility] MEDICINE [address] [place], [place] [phone] Provider, MD Nadeem Social History Tobacco Use [...] Description 08/06/2025 10:00 AM EST Office Visit [facility] OPTOMETRY [address] [place] [address] TarkaKeli, OD [address] [place] [address] documented as of this encounter Procedures Procedure [...] documented as of this encounter Care Teams Community Chest Officer Relationship Specialty Start Date End Date Aide Ho DO [address] [place] [address] PCP - General Family Medicine 01/31/22 documented as of this encounter
--- OUTSIDE RECORDS SUMMARY | 2025-05-21 19:58 | XMS_ITS | Encounter Summary ---
Author Organization [employer] Address [address] [facility] 7t [place] [address] Care Team Providers Care Front Office Java Developer Name Role Phone Aide Ho DO Primary Care Provider [phone] Reason for Visit * Reason Comments Med Refill Encounter Details Date Type Department Care Team ([facility] st Contact Info) Description 05/17/2025 Refill [facility] MEDICINE [address] [place], [place] [phone] Aide Ho DO [address] [place], [place] [phone] Social History Tobacco Use Types Packs/Day Years [...] Description 08/06/2025 10:00 AM EST Office Visit [facility] OPTOMETRY [address] [place] [address] Keli Escalante, OD [address] [place] [address] documented as of this encounter Visit Diagnoses Not on filedocumented in this encounter Additional Health Concerns Assessment Noted Time PHQ-9 Depression Total Score: 0 06/20/19 25 10:14 AM EST documented as of this encounter Care Teams Front Office Java Developer Relationship Specialty Start Date End Date Aide Ho DO [address] [place] [address] PCP - General Family Medicine 01/31/22 documented as of this encounter
--- OUTSIDE RECORDS SUMMARY | 2025-05-21 19:59 | XMS_ITS | Clinical Summary ---
Author Organization [employer] Address 75 [facility] 7t [place] [address] Care Team Providers Care Senior Center Manager Name Role Phone Aide Ho DO Primary Care Provider [phone] Allergies No known active allergies Medications Psyllium [...] with WATER AND TAKE DIRECTED BY Gastroenterology ([facility]) 023 Active Varenicline Tartrate, Starter, 0.5 MG X 11 & 1 MG X 42 tablet therapy pack Take 0.5 mg by mouth Once per day for 3 days, THEN 0.5 mg 2 times daily for 4 days, THEN 1 mg 2 times daily for 21 days. 42 each 024 Active Varenicline Tartrate,Mary nue, 1 MG tablet Take 1 mg by mouth 2 times daily. 60 tablet 1 024 Active Additional Information Patient not taking.Reported on 04/06/2025 azelastine (Astelin) 0.1 % nasal spray Administer 1 spray into each nostril 2 times daily. Use in each nostril as directed 30 mL 12 Active Additional Information Patient not taking.Reported on 04/06/2025 nicotine polacrilex (Commit) 2 MG lozenge DISSOLVE 1 LOZENGE BY MOUTH NEEDED FOR SMOKING CESSATION 72 lozenge 2 Active Ferrous Sulfate (iron) 325 (65 Fe) MG tabletIndicati ons:Anemia, unspecified type TAKE 1 TABLET BY MOUTH EVERY EVENING WITH ORANGE JUICE OR A FULL GLASS OF WATER 90 tablet 3 Active loratadine (Claritin) 10 MG tablet TAKE 1 TABLET BY MOUTH EVERY MORNING 90 tablet 3 05/09/20 25 5:47 PM EST Active triamcinolone (Nasacort) 55 MCG/ACT nasal inhaler Administer 2 sprays into each nostril Once per day. 16.5 g 11 05/09/20 25 5:47 PM EST 025 2025 Active pseudoephedrin e ER (Sudafed-12 Hour) 120 MG 12 hr tablet Take 1 tablet (120 mg) by mouth every 12 (twelve) hours if needed for congestion. Do not crush, chew, or split. 20 tablet 025 2025 Active gabapentin (Neurontin) 300 MG capsule TAKE 1 CAPSULE BY MOUTH AT BEDTIME 30 capsule 3 05/18/20 25 3:31 PM EST Active baclofen (Lioresal) 10 MG tablet TAKE 1 TABLET BY MOUTH THREE TIMES DAILY IN THE MORNING, AT NOON, AND AT BEDTIME NEEDED FOR MUSCLE SPASMS 60 tablet 2 025 Active atorvastatin (Lipitor) 10 MG tablet TAKE 1 TABLET BY MOUTH EVERYDAY AT NOON 90 tablet 3 05/09/20 25 5:47 PM EST 025 Active ibuprofen 600 MG tabletIndicati ons:Pain TAKE 1 TABLET BY MOUTH THREE TIMES DAILY WITH FOOD NEEDED FOR HEADACHE 60 tablet 2 05/09/20 25 5:47 PM EST 025 Active acetaminophen (Tylenol) 500 MG tablet Take 1 tablet (500 mg) by mouth every 6 (six) hours if needed for mild pain. 20 tablet 025 Active levothyroxine (Synthroid, Levoxyl) 100 MCG tablet TAKE 1 TABLET BY MOUTH EVERY MORNING BEFORE BREAKFAST 90 tablet 025 Active Ventolin HFA 108 (90 Base) MCG/ACT inhaler INHALE 2 PUFFS BY MOUTH EVERY 6 HOURS NEEDED FOR WHEEZING 18 g 05/09/20 25 5:47 PM EST Active Diclofenac Sodium 1 % gel APPLY 2 GRAMS TOPICALLY TO AFFECTED AREA(S) 4 TIMES A DAY IN THE MORNING, AT NOON, IN THE EVENING, AND AT BEDTIME FOR PAIN 100 g 3 05/09/20 25 5:47 PM EST 025 Active meclizine (Antivert) 25 MG tabletIndicati ons:Dizziness TAKE 1 TABLET BY MOUTH THREE TIMES DAILY IN THE MORNING, AT NOON, AND AT BEDTIME NEEDED FOR DIZZINESS 30 tablet 2 025 Active D3 Super Strength 50 MCG (2000 UT) capsule TAKE 1 CAPSULE BY MOUTH EVERYDAY AT NOON 90 capsule 1 025 Active D3 Super Strength 50 MCG (2000 UT) capsule TAKE 1 CAPSULE BY MOUTH EVERYDAY AT NOON 90 capsule 1 025 2024 Discontinued meclizine (Antivert) 25 MG tabletIndicati ons:Dizziness TAKE 1 TABLET BY MOUTH THREE TIMES DAILY IN THE MORNING, AT NOON, AND AT BEDTIME NEEDED FOR DIZZINESS 30 tablet 2 05/09/20 25 5:47 PM EST 025 2024 Discontinued Active Problems Problem Noted Date Diagnosed Date Dental caries 04/06/2025 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 02/09/2025 Pain, dental 01/30/2025 Periodontal [...] Encounters Date Type Department Care Team Description 05/17/2025 Refill [facility] MEDICINE [address] [place] [address] Aide Ho DO 05/12/2025 Refill [facility] MEDICINE [address] [place] [address] Aide Ho DO Dizziness 04/06/2025 3:00 PM EDT Office Visit [facility] ADULT DENTAL [address] [place] [address] Josue Salazar DDS Dental caries (Primary Dx); Defective dental rastafari 03/01/2025 Refill [facility] MEDICINE [address] [place] [address] Aide Ho DO 02/23/2025 Refill [facility] MEDICINE [address] [place] [address] Aide Ho DO from Last 3 Months Immunizations Immunization Administration [...] Sign Reading Time Taken Comments Blood Pressure 132/74 04/06/2025 2:36 PM EDT Pulse 70 04/06/2025 2:36 PM EDT Temperature 35.9 C (96.7 F) [...] Description 08/06/2025 10:00 AM EST Office Visit [facility] OPTOMETRY [address] [place], [place] [phone] DevonkaKeli, OD [address] [place] [address] Health Maintenance Due Date Last Done Comments CT Colonography 1972 FIT DNA/Cologuard 1972 FOBT 1970 Sigmoidoscopy 1970 Disability Screening 1972 Hepatitis A Vaccines (1 of 2 - Risk 2-dose series) 01/16/1991 Hepatitis B Vaccines (1 of 3 - 19+ 3-dose series) 01/16/1991 RSV Patients and Patients Aged 60 years or older (1 - Risk 50-74 years 1-dose series) 01/16/2022 FIT 12/05/2022 12/05/2021 Dental Oral Exam 08/18/2024 02/18/2024, , 02/21/2021, Additional history exists Dental Prophylaxis 08/18/2024 02/18/2024, 0 02/21/2021, 08/07/2019, Additional history exists SDOH Screening 11/28/2024 11/29/2023 COVID-19 Vaccine ( season) 2025 06/20/2024, 04/12/2023, 05/08/2022, Additional history exists Influenza Vaccine (#1) 2025 , 04/12/2023, 04/09/2022, Additional history exists Dental X-Ray: Bitewings 02/18/2025 02/18/20 24, 02/21/2021, 12/29/2018 Mammogram 05/08/2025 05/08/2024, 05/07/2023 Alcohol/Substance Use Screening 06/20/2025 06/20/2024 Depression Screening 06/20/2025 06/20/2024, 06/20/19 25 Colonoscopy 08/21/2025 08/21/2022 Colorectal Cancer Screening 08/21/2025 Tobacco Screening 04/06/2026 04/06/2025 Cervical Cancer Screening 01/23/2027 HPV/Cotest 01/23/2027 01/24/2024, 10/05, 10/16/2021, Additional history exists Pap Smear 01/23/2027 01/24/2024, 10/16/2021 Dental X-Ray: Full Mouth 02/18/2027 02/18/2024, 12/06 DTaP/Tdap/Td Vaccines (2 - Td or Tdap) 11/27/2027 11/26/2017 Lipid Panel 12/22/2028 12/23/2023, 09/06, 09/24/2021, Additional history exists Pneumococcal Vaccine: 50+ Years Completed 02/05/2022, 11/26/2017 Zoster Vaccines Completed 04/09/2022, 02/05/2022 HIV Screening Completed 12/23/2023, 09/06, 08/01/2019 HIB Vaccines Aged Out No longer eligi [...] PRESENTATION, DETAILED AND EXTENSIVE TREATMENT PLANNING Routine 04/06/2025 3:00 PM EDT 12 B(V) RESIN-BASED COMPOSITE - 1 SURF, POSTERIOR Routine 04/06/2025 3:00 PM EDT 11 F(V) RESIN-BASED COMPOSITE - 1 SURF, ANTERIOR Routine 04/06/2025 3:00 PM EDT BI MAMMOGRAM SCREENING TOMOSYNTHESIS BILATERAL [...] PM EST Narrative 05/15/2024 9:03 AM EST [facility] [address] [place] [address] Dr. Wang, [place] [address] Mammography Report Signed Patient: Janet Shetty MR#: [id number] : 1970 Acct:[id number] Age/Sex: 54 / F ADM Date: 05/08/24 Loc: MAMMO Attending Dr: Aide Ho DO Ordering Physician: Aide Ho DO Results: 1N egative Date of Service: 05/08/24 Follow Up: 1 Year From Orig ina Mammogram Procedure(s): MM tomosynthesis screening BI Accession Number(s): [id number] cc: Aide Ho DO EXAMINATION: MM SCREENING [...] by: Chelo Harrison DO 05/15/2024 09:00 AM [facility] Dictated By: Chelo Harrison DO Signed By: <Electronically signed by Chelo Harrison DO in OV> 05/15/24 0900 DD/ 1415 TD/TT: 05/08/24 1425 Animal Health Technician: Procedure Note Donotuseinterpreter, Image - 05/15/2024 [facility] [address] [place] [address] Mammography Report Signed Patient: Janet Shetty MMR#: [id number] : 1970Acct:[id number] Age/Sex: 54 / FADM Date: 05/08/24 Loc: MAMMO Attending Dr: Aide Ho DO Ordering Physician: Aide Hoults: 1N egative Date of Service: 05/08/24Follow Up: 1 Year From Orig ina Mammogram Procedure(s): MM tomosynthesis screening BI Accession Number(s): [id number] cc: Aide Ho DO EXAMINATION: MM SCREENING [...] by: Chelo Harrison DO 05/15/2024 09:00 AM [facility] Dictated By: Chelo Harrison DO Signed By: <Electronically signed by Chelo Harrison DO in OV> 05/15/24 0900 DD/ 1415 TD/TT: 05/08/24 1425 Animal Health Technician: us Aide Ho DO IMG BI PROCEDURES Final Resu lt * ThinPrep Imaging Pap and HPV mRNA E6/E7 with Reflex to HPV 16,18/45 (01/24/2024 1:20 PM EDT) HPV 16 RNA [facility] HPV 18/45 RNA [facility] HPV nRNA E6/E7 Not Detected Not Detected [facility] Comment:Methodology: Transcr iption-Mediated AmplificationThis assay detects E6/E7 viral messenger RNA (mRNA) from 14high-risk HPV types (16,18,31,33,35,39,45,51,52,56,58,59,66,68).Cervical sources are required for HPV testing.If a vaginal source from a patient who has had atotal hysterectomy with removal of cervix wassubmitted, please contact the testing laboratoryfor alternative testing options.For additional information, please refer [email or web address]/faq/[email or web address](This link if provided for information/educational purposes only.)THIS TEST WAS PERFORMED AT:[facility] [address] [id number] HOPKINS MD SOURCE: SEE NOTE [facility] Comment:None given Report Status: [facility] Clinical Information: SEE NOTE [facility] Comment:None given LMP: SEE NOTE [facility] Comment:NONE GIVEN Prev. PAP: SEE NOTE [facility] Comment:NONE GIVEN Prev. BX: SEE NOTE [facility] Comment:NONE GIVEN Statement Of Adequacy: SEE NOTE [facility] Comment:Satisfactory for mario luation.Endocervical/transformation zone component absent. General Categorization: [facility] Interpretation/Result: SEE NOTE [facility] Comment:Cytology Results: Ne gative for intraepitheliallesion or malignancy. Cytology Comment SEE NOTE [facility] Comment:This Pap test has be en evaluated with computerassisted technology. Baseball Hand Sewer: SEE NOTE [facility] Comment:RPR, CT (ASCP) CT sc reening location: [address] [address] Review Baseball Hand Sewer: [facility] Pathologist [facility] PAP Infection [facility] See Note SEE NOTE [facility] [...] ORD ERABLES Final Result Performing Organization Address [facility]/ZIP Co de Phone Number [facility] [address] [place] [address] [phone] * HIV-1/2 Antigen and Antibodies, Fourth Generation, with Reflexes (12/23/2023 11:11 AM EDT) HIV AB/AG Nonreactive Nonreactive [facility] Comment:HIV-1 p24 Ag and/or HIV-1/HIV-2 Ab not detected.A test result that is nonreactive does not exclude thepossibility of exposure to or infection with HIV-1 and/orHIV-2. Nonreactive results in this assay for individualswith prior exposure to HIV-1 and/or HIV-2 may be due toantigen and antibody levels that are below the limit ofdetection of this assay.The [employer] HIV Ag/Ab Combo assay result andsupplemental assay results should be interpreted inconjunction with the patient's clinical presentation,history and other laboratory results. If the results areinconsistent with clinical evidence, additional testing issuggested to confirm the result. Blood Venous blood specimen / Unknown 12/23/2023 11:11 AM EDT 12/23/2023 1:03 PM EDT us Aide Ho DO LAB BLOOD ORDERABLES Final R esult Performing Organization Address City/[facility]/ZIP Co de Phone Number [facility] [address] [place] [address] [phone] * (ABNORMAL) Lipid Panel, Standard (12/23/2023 11:11 AM EDT) Triglycerides 104 <150 mg/dL [facility] Comment:Desirable Triglyceri de: less than [...] 190 mg/dL HDL Cholesterol 55 >40 mg/dL [facility] Comment:Desirable HDL: great er than 40 mg/dL Note: This HDL assay may give artificially low results in patients with liver disease. Blood Venous blood specimen / Unknown 12/23/2023 11:11 AM EDT 12/23/2023 1:03 PM EDT Aide Ho DO LAB BLOOD ORDERABLES Final R esult [facility] [address] [place], [place] [phone] * Hm Colonoscopy (08/21/2022 11:25 AM EDT) Historical Provider HEALTH MAINTENANCE Final Result from Last 3 Months or Most Recently Relevant to Health Maintenance Insurance [facility] C3 Care Teams Senior Center Manager Relationship Specialty Start Date End Date Aide Ho DO [address] [place] [id number] PCP - General Family Medicine 01/31/22
== END 2025-05-21 13:44 | disposition home or self-care (01) ==
LOC: HO.MAMMO 13:43
PROVIDERS: PCP Family Medicine; Visit Provider Family Medicine
DX: Z12.31 Encounter for screening mammogram for malignant neoplasm of breast (principal)
CPT/HCPCS: 77063; 77067

== ENCOUNTER → 2025-05-21 14:00 | Outpatient (BNV) | payer MEDICAID, SELFPAY | PROVIDERS: PCP Family Medicine; Visit Provider Internal Medicine | DX: Z12.31 Encounter for screening mammogram for malignant neoplasm of breast (principal) | CPT/HCPCS: 77063; 77067 ==